=== PATIENT | female | born 1935 | race Caucasian/White ===

== ENCOUNTER 2016-09-11 14:01 | Inpatient (IN) | payer MEDICARE, OTHER ==
[~2016-09-11] VITALS: Ht 152.4 cm; Wt 68.0 kg
--- NOTE | 2016-09-11 14:00 | NUR ---
RECIEVED FROM ACUTE CARE/.ORIENTED TO ROOM AND SURROUNDINGS.CL IN REACH
[~2016-09-11 14:01] MED LIST: ACETAMINOPHEN500 M1 PO; ADVAIR 250/501 DISK INH; AMBIEN10 MG PO; AMBIEN5 MG PO; BAYER CHEWABLE81 MG PO; BROVANA15 MCG/2 M INH; CATAPRES0.1 MG PO; COLACE100 MG PO; COMBIVENT RESPIM4 GM INH; COUMADIN3 MG PO; CRESTOR20 MG PO; IMDUR60 MG; IPRAT-ALBUT 0.5-3 ML UPD; ISOSORBIDE MONO60 M1 PO; KENALOG 0.1 % 115 GM TP; KLONOPIN1 MG PO; LIPITOR10 MG PO; LOPRESSOR25 MG PO; MAXIPIME 2 GM/D52 G1 IV; METOPROLOL TART25 MG PO; MIRALAX17 GM PO; MOBIC7.5 MG PO; NEURONTIN 300300 MG PO; NITROSTAT0.4 MG SL; PRILOSEC20 MG PO; PROZAC40 MG PO; SINGULAIR10 MG PO; VIBRAMYCIN 100100 MG PO
[2016-09-11 14:51] VITALS: BP 157/84; BMI 29.3
--- NOTE | 2016-09-11 17:00 | NUR ---
RESTING QUIETLY.SUPPER TRAY GIVEN.
--- NOTE | 2016-09-11 19:35 | NUR ---
PT CONVERSIVE, SHORTNESS OF BREATH WITH ACTIVITY. AMBULATED TO BATHROOM WITH MIN ASSIST, PT NEEDS ASSISTANCE WITH BALANCE, PT HAS SHORT GAIT PATTERN.
--- NOTE | 2016-09-11 21:00 | NUR ---
PT CONVERSIVE, SPEAKS ABOUT DISCHARGE PLANS AND NEED TO GET STRONGER, SPOUSE TWO MONTHS AGO. PT HAS FREQUENT, TIGHT COUGH, OCCASIONAL PRODUCTIVE WITH WHITE SPUTUM.
[2016-09-11 21:08] VITALS: BP 167/91
[2016-09-12 05:45] LABS: BASOPHILS 0.1 % (0.0-2.0); EOSINOPHILS 0.2 % (0-7); HEMATOCRIT 33.3 % (36.0-48.0); HEMOGLOBIN 10.9 g/dL (12-16); IMMATURE GRANULOCYTES 0.7 % (0-5); LYMPHOCYTES 8.5 % (15-50); MCH 30.3 pg (26.0-34.0); MCHC 32.7 g/dL (31.0-37.0); MCV 92.5 fL (80.0-100.0); MEAN PLATELET VOLUME 10.2 fL (7.4-10.4); MONOCYTES 14.3 % (2-11); NEUTROPHILS 76.2 % (40-80); PLATELET COUNT 202 10x3/uL (130-400); RDW 13.2 % (11.5-14.5); WBC 13.4 10x3/uL (4.8-10.8)
[2016-09-12 06:23] LABS: ANION GAP 14.2 mmol/L (8-16); CALCIUM 8.5 mg/dL (8.5-10.1); CARBON DIOXIDE 24.3 mmol/L (21.0-32.0); CREATININE - SERUM 0.8 mg/dL (0.6-1.3); POTASSIUM - SERUM 3.5 mmol/L (3.5-5.1)
--- NOTE | 2016-09-12 08:15 | NUR ---
PT RESTING IN BED WITH EYES OPEN CALL LIGHT IN REACH WILL MONITER
[2016-09-12 08:38] VITALS: BP 124/73
[2016-09-12 13:03] VITALS: Ht 152.4 cm; Wt 68.0 kg
--- NOTE | 2016-09-12 14:58 | NUR ---
PT UP IN WHEELCHAIR NO PROBLEMS WILL MONITER
--- NOTE | 2016-09-12 17:43 | NUR ---
PT RESTING IN BED WITH EYES OPEN CALL LIGHT IN REACH NO PROBLEMS WILL MONITER
[2016-09-12 19:00] VITALS: BP 153/52
--- NOTE | 2016-09-12 19:30 | NUR ---
PT AWAKE, WATCHING TV, DENIES ANY NEEDS, STATES SHE GETS RELIEF FROM BREATHING TX. PT STATES SHE BELIEVES SHE IS READY TO GO HOME IF SHE COULD GET THE COUGH UNDER CONTROL. REVIEWED IV ANTIBIOTIC SCHEDULE WITH PATIENT. PT REQUESTS THE MARYAON PEALES WITH HER HS MEDICATIONS.
--- NOTE | 2016-09-13 02:10 | NUR ---
PT RESTING QUIETLY, EYES CLOSED, NO SHEETS OR BLANKET ON, NO COUGHING AT THIS TIME, RESPIRATIONS REGULAR.
[2016-09-13 06:53] LABS: BASOPHILS 0.2 % (0.0-2.0); EOSINOPHILS 4.2 % (0-7); HEMATOCRIT 32.2 % (36.0-48.0); HEMOGLOBIN 10.6 g/dL (12-16); IMMATURE GRANULOCYTES 1.8 % (0-5); LYMPHOCYTES 13.4 % (15-50); MCH 30.1 pg (26.0-34.0); MCHC 32.9 g/dL (31.0-37.0); MCV 91.5 fL (80.0-100.0); MEAN PLATELET VOLUME 9.6 fL (7.4-10.4); MONOCYTES 9.9 % (2-11); NEUTROPHILS 70.5 % (40-80); PLATELET COUNT 192 10x3/uL (130-400); RBC 3.52 10x6/uL (4.00-5.40); RDW 13.4 % (11.5-14.5); WBC 11.4 10x3/uL (4.8-10.8)
[2016-09-13 07:13] LABS: ANION GAP 9.2 mmol/L (8-16); CALCIUM 8.5 mg/dL (8.5-10.1); CARBON DIOXIDE 29.5 mmol/L (21.0-32.0); CREATININE - SERUM 0.8 mg/dL (0.6-1.3); POTASSIUM - SERUM 3.7 mmol/L (3.5-5.1)
--- NOTE | 2016-09-13 08:00 | NUR ---
SITTING ON SIDE OF BED EATING BREAKFAST. SOB WITH MINIMAL EXERTION. C/O ABD PAIN FROM COUGHING SO HARD
[2016-09-13 08:15] VITALS: BP 113/75
--- NOTE | 2016-09-13 12:24 | NUR ---
SITTING IN CHAIR EATING LUNCH. ENCOURAGED PT TO USE PILLOW TO COUSHIN ABD WHEN COUGHING.
--- NOTE | 2016-09-13 16:34 | RHP ---
PATIENT: ORALIA SWEENEY MEDICAL RECORD: [id number] ACCOUNT: [id number] LOCATION:[facility]1117 : 34 ADMISSION DATE: 09/11/16 REHABILITATION HISTORY AND PHYSICAL EXAMINATION POST ADMISSION PHYSICIAN EXAMINATION Post-admission Physical Exam and History and Physical DATE OF ADMISSION: 09/11/2016 HISTORY OF PRESENT ILLNESS: The patient is an 81-year-old female admitted with a diagnosis of acute exacerbation of COPD, asthma and right upper lobe community-acquired pneumonia. The patient is an ____ female patient admitted on 09/08/2016 from the physician's office. The patient came to the office with illness dating back to after having a fall and found to have a left 8th rib fracture and has had several falls since that time. With antibiotics of Levaquin last month, the patient now comes in with increasing shortness of breath, wheezing, dyspnea on activity, no paroxysmal nocturnal dyspnea, no orthopnea, not able to go with any activity, seems to worsen with weather changes, cough with sputum production of greyish to yellow in color, fever was up to 101, chills, and night sweats. Chest x-ray showed a focal infiltrate now in the right upper mid lung field, cardiac enlargement, and some mild central vascular prominence, so she is admitted for IV antibiotics, steroids, O2 titration, nebulizer and pulmonary consult. Prior to admit, she was living with an adult son and was independent with ADLs and mobility. Currently, she is moderate to max assist for ADLs and mobility, will definitely benefit from inpatient care. COMORBIDITIES: Include chronic bronchitis, acute dyspnea, fever, chills, chest pain, rib fracture, recent falls, recurrent pneumonia, coronary artery disease, angina, history of NH, hypertension, hyperlipidemia, weakness, debility, anxiety, depression, neuropathy, urinary incontinence and history PTCA with stents. PAST MEDICAL HISTORY: Significant for known coronary artery disease, angina, hypertension, hyperlipidemia, weakness, debility, frequent falls, fever, chest pain and pneumonia. PAST SURGICAL HISTORY: Includes gallbladder surgery, appendectomy, tonsillectomy and adenoidectomy, hysterectomy, breast surgery, lumpectomy. She has had lymph nodes removed, cataracts bilaterally, shoulder rotator cuff done, tubal and FREE LANCE MODEL with stents. CURRENT ALLERGIES: ADHESIVE TAPE AND LASIX. CURRENT MEDICATIONS: Include [place] 5/325 one tab q.12 hours p.r.n., Protonix 40 mg b.i.d., Mobic 15 mg daily, Neurontin 300 mg daily, Prozac 40 mg daily, Lipitor 10 mg daily, sublingual nitroglycerin p.r.n. chest pain, Singulair 10 mg at bedtime, metoprolol 25 mg b.i.d., isosorbide 60 mg b.i.d., DuoNeb updrafts as needed, doxycycline 100 mg b.i.d., clonazepam 2 mg q.h.s., Maxipime 2 grams q.12 hours, Brovana 15 mcg b.i.d. and acetaminophen 500 mg q.6 hours p.r.n. pain. HABITS: No alcohol or tobacco use. FAMILY HISTORY: Noncontributory. HISTORY AND PHYSICAL [id number] PATELORALIA Tani SOCIAL HISTORY: The patient hopes to return home hopefully with family and a caregiver. She is , lives out on [facility]. REVIEW OF SYSTEMS: GENERAL: Does complain of weakness and fatigue. HEENT: Denies cold, cough, or congestion. CARDIOVASCULAR: Denies chest pain. PHYSICAL EXAMINATION: VITAL SIGNS: Stable, afebrile. GENERAL: Elderly female in no acute distress, alert upon exam. HEENT: Normocephalic and atraumatic. Mucosa moist. NECK: Supple. No lymphadenopathy. LUNGS: Clear in upper ortiz. She does have coarse breath sounds on the right. CARDIOVASCULAR: Regular rate and rhythm. ABDOMEN: Benign. EXTREMITIES: No clubbing, cyanosis or edema. NEUROLOGIC: Intact. LABORATORY DATA: Her white count is 13.4, H&H of 11 and 33 and platelet count was noted to be normal. Her sodium is 139, potassium 3.5, BUN and creatinine of 23 and 0.8, blood sugar is noted to be 97. ASSESSMENT: This is an 81-year-old female patient admitted to rehab with a working diagnosis of acute exacerbation of chronic obstructive pulmonary disease complicated by multiple medical problems. The patient has potential to make improvement. We instituted the following multidisciplinary therapies including, but not limited to physical, occupational, respiratory, speech, nutritional services, prosthetics and orthotics. Given her complex condition and risk for more complications, rehabilitation services cannot be provided at a lower level of care such as a [facility] facility. PLAN: 1. Admit to [facility] rehab for intensive inpatient therapy to include the following disciplines: A. Physical therapy to improve gait, all transfer skills and bed mobility to a modified independent level. B. Occupational therapy to improve activities of daily living to a modified independent level. C. Case management to assist with discharge planning and placement options. D. Nutrition to assist with nutritional needs. E. Rehabilitation nursing to assist in monitoring the patient's underlying medical conditions and to assist with any type of bowel or bladder management. 2. The patient's current medications and medical care will be continued. 3. The patient will be placed on standard fall precautions. 4. The patient is estimated length stay is approximately 7-10 days. 5. Discuss this patient during care team staff meeting this week. TRANSINT:[id number] Voice Confirmation ID: [id number] DOCUMENT ID: [id number] HISTORY AND PHYSICAL [id number] ORALIA SWEENEY SCOTT MD at 1634 CC: [id number] DICTATION DATE: 09/12/16 1510 ORTHOTIST: 09/12/16 1715 ADM IN [facility] [address] [place] [address]
--- NOTE | 2016-09-13 17:19 | NUR ---
CARE TEAM MEETING: SLOAN DISHCARGE DATE IS 09/22/16. PCP IS DR. ALY, SHE HAS WALKER, NEBULIZER AND CANE. SHE USES [facility] FOR HER DME NEEDS. WILL CONTINUE TO FOLLOW WITH PATIENT UNTIL DISCHARGED
--- NOTE | 2016-09-13 18:43 | NUR ---
SITTING ON SIDE OF BED USING CELL PHONE. IV ABX INFUSING ORDERED VIA LEFT FA
[2016-09-13 19:00] VITALS: BP 146/65
--- NOTE | 2016-09-13 19:50 | NUR ---
PT. IN BED WITH HOB UP FOR COMFORT AND I.V. ANTIBIOTIC COMPLETED. PT. WANTING TO GET CLEANED UP AND SCRUBS CHANGED. SPRAY PAINTER HELPER WILL ASSIST PT. WITH THIS TONIGHT. PT. DENIES ANY OTHER NEEDS AND CALL LIGHT IS WITHIN REACH.
--- NOTE | 2016-09-14 02:20 | NUR ---
PT. IN BED WITH HOB UP FOR COMFORT WITH EYES CLOSED AND RESP. EVEN. CALL LIGHT WITHIN REACH AND SIDERAILS UP FOR SAFETY.
--- NOTE | 2016-09-14 07:33 | NUR ---
RESTING QUIETLY IN BED. NO S/S OF SOB.
--- NOTE | 2016-09-14 12:12 | NUR ---
SITTING ON SIDE OF BED EATING LUNCH. DENIES NEEDS. HAS BEEN UP WORKING WITH THERAPY TODAY
[2016-09-14 13:01] VITALS: BP 122/59
--- NOTE | 2016-09-14 20:00 | NUR ---
PT. IN BED WITH HOB UP FOR COMFORT. ASSESSMENT COMPLETED. PT. REQUESTING ANYTHING TO HELP WITH HER CONSTIPATION. PT. STATED SHE HAD A SMALL BM TODAY BUT FEELS CONSTIPATED. PT. STILL HAS SORE THROAT AND IS USING WARM SALT WATER BUT REPORTS IT HASN'T HELPED. ENCOURAGED PT. TO CONTINUE TO USE WARM SALT WATER GARGLE AND WILL ADMINISTER TYLENOL THIS EVENING ALSO. CALL LIGHT WITHIN REACH.
[2016-09-14 22:45] VITALS: BP 134/77
[2016-09-14 22:59] VITALS: BP 137/56
[2016-09-14 23:00] VITALS: BP 134/77
--- NOTE | 2016-09-15 02:04 | NUR ---
PT. LYING IN BED WITH HOB UP FOR COMFORT WITH EYES CLOSED AND RESP. EVEN. CALL LIGHT WITHIN REACH.
--- NOTE | 2016-09-15 03:17 | NUR ---
PT CALLED C/O MILD PAIN TO ABD WHEN COUGHING. PT REQ AND REC'D PRN TYELENOL PER ORDERS. INFORMED NURSE. PT DENIES FURTHUR NEEDS AT THIS TIME
--- NOTE | 2016-09-15 08:00 | NUR ---
SITTING UP ON SIDE OF BED EATING BREAKFAST. DENIES INCREASED SOB. NOT WEARING OXYGEN. C/O MOUTH SORENESS. NO EVIDENCE OF WHITE PATCHES OR SORES NOTED TO MOUTH OR TONGUE.
--- NOTE | 2016-09-15 12:08 | NUR ---
EATING LUNCH. DENIES INCREASED PAIN TO CHEST FROM COUGHING.
[2016-09-15 12:17] VITALS: BP 153/87
--- NOTE | 2016-09-15 19:45 | NUR ---
PT. IN BED WITH HOB UP FOR COMFORT WATCHING TV. ASSESSMENT COMPLETED. PT. REQUESTED HER NEW MOUTH WASH FOR HER MOUTH SHE HASN'T RECEIVED ANY OF IT YET. INSTRUCTED PT. ON THE DIFFERENCE BETWEEN REGULAR SCHEDULED MEDICATIONS AND " NEEDED"/"PRN" MEDICATIONS. CALL LIGHT WITHIN REACH.
[2016-09-15 20:15] VITALS: BP 136/68
--- NOTE | 2016-09-16 01:48 | NUR ---
PT. IN BED WITH HOB UP FOR COMFORT WITH EYES CLOSED AND RESP. EVEN. YOU CAN HEAR PT. COUGHING ALL THE WAY UP THE [place] AT TIMES EVEN AFTER GIVING HER HER TESSELON JONES FOR HER COUGH. CALL LIGHT WITHIN REACH.
--- NOTE | 2016-09-16 02:44 | NUR ---
PT. IN BED LYING ON HIS RIGHT SIDE WITH EYES CLOSED AND RESP. EVEN. CALL LIGHT WITHIN REACH.
[2016-09-16 07:00] VITALS: BP 126/52
--- NOTE | 2016-09-16 08:00 | NUR ---
PATIENT SITTING UP IN BED. ALERT/ORIENT X4. CALL LIGHT WITHIN REACH. VOICES NO NEEDS AT THIS TIME
--- NOTE | 2016-09-16 09:45 | NUR ---
PATIENT REQUESTED PRN ONCOLOGY MOUTHWASH AND PRN TESSALON PEARLS. BOTH GIVEN. PATIENT WORKING WITH PYSICAL THERAPIST DOWN IN REHAB ROOM
--- NOTE | 2016-09-16 10:30 | NUR ---
IN THERAPY.NO DISTRESS.RENATO WELL.
--- NOTE | 2016-09-16 11:00 | NUR ---
THIS NURSE TALKED WITH PHYSICAL THERAPIST ABOUT PATIENT BEING ABLE TO WALK AROUND IN ROOM BY SELF. PHYSICAL TERAPIST FELT THAT PATIETS GAIT IS STEADY AND PATIENT IS SAFE ENOUGHT TO WALK AROUND ROOM BY SELF. RELEASE OF RESPONSIBILITY FOR BED/CHAIR ALARM SIGNED BY PATIENT
--- NOTE | 2016-09-16 12:32 | NUR ---
PATIENTS LUNGS SOUND CLEAR BILATERAL. DIMINISHED. HX OF COPD. PULSE OX 96 ON ROOM AIR.
--- NOTE | 2016-09-16 14:01 | NUR ---
NURSE ASST HELPING PATIENT WITH SHOWER. SET UP NEEDS ONLY
--- NOTE | 2016-09-16 17:30 | NUR ---
PATIENT SITTING UP IN A CHAIR AT BEDSIDE TO EAT SUPPER. REQUESTED PRN ONCOLOGY MOUTHWASH BEFORE SUPPER. GIVEN
[2016-09-16 19:35] VITALS: BP 154/84
--- NOTE | 2016-09-16 21:10 | NUR ---
PT REQ AND REC'D PRN KLONOPIN, NORCO, MOUTHWASH AND TESSALON WITH HS MEDS PER ORDERS AT THIS TIME. PT DENIED FURTHUR NEEDS. WCMT. BED LOW. CL IN REACH.
--- NOTE | 2016-09-17 01:17 | NUR ---
PT RESTING, EYES CLOSED. BED LOW. CL IN REACH.
--- NOTE | 2016-09-17 06:27 | NUR ---
PT TOOK AM MEDS WITHOUT DIFFICULTY. PT DENIES FURTHUR NEEDS AT THIS TIME. BED LOW. CL IN REACH.
[2016-09-17 07:00] VITALS: BP 145/85
--- NOTE | 2016-09-17 07:59 | NUR ---
PATIENT AWAKE, ALERT/ORIENT X4. VOICES NO NEEDS THIS AM. CALL LIGHT WITHIN REACH
--- NOTE | 2016-09-17 08:00 | NUR ---
PATIENT AWAKE, ALERT/ORIENT X4. CALL LIGHT WITHIN REACH. VOICES NO NEEDS
--- NOTE | 2016-09-17 10:06 | NUR ---
PATIENT UP, WALKING TO BATHROOM WITH WHEELED WALKER. STEADY GAIT. PATIENT HAS SIGNED A BED/CHAIR ALARM WAVIOR.
--- NOTE | 2016-09-17 12:49 | NUR ---
PRN ISOPTO TEARS AND PRN ONCOLOGY MOUTH WASH GIVEN PER PATIENT REQUEST
--- NOTE | 2016-09-17 16:58 | NUR ---
PRN ONCOLOGY MOUTHWASH AND PRN ISOPTO EYE DROPS GIVEN PER PATIENT REQUEST.
--- NOTE | 2016-09-17 18:00 | NUR ---
SITTING ON SIDE OF BED,CONVERSING WITH OTHER PT.CL IN REACH.
--- NOTE | 2016-09-17 19:30 | NUR ---
PT RECEIVING RESP TREATMENT AT THIS TIME. VS TAKEN. PT DENIES NEEDS. WCTM. BED LOW. CL IN REACH.
[2016-09-17 19:35] VITALS: BP 151/76
--- NOTE | 2016-09-18 00:16 | NUR ---
PT RESTING, EYES CLOSED. BED LOW. CL IN REACH. WCTM.
--- NOTE | 2016-09-18 03:50 | NUR ---
PT RESTING, EYES CLOSED. RR ARE EVEN AND UNLABORED. NO SIGNS OF DISTRESS NOTED. WCTM. BED LOW. CL IN REACH.
--- NOTE | 2016-09-18 05:42 | NUR ---
PT TOOK AM MEDS WITHOUT DIFFICULTY. PT DENIES NEEDS AT THIS TIME. BED LOW. CL IN [facility].
[2016-09-18 06:39] LABS: BASOPHILS 0.6 % (0.0-2.0); EOSINOPHILS 5.9 % (0-7); HEMATOCRIT 34.5 % (36.0-48.0); HEMOGLOBIN 10.9 g/dL (12-16); IMMATURE GRANULOCYTES 2.1 % (0-5); LYMPHOCYTES 21.7 % (15-50); MCH 29.8 pg (26.0-34.0); MCHC 31.6 g/dL (31.0-37.0); MCV 94.3 fL (80.0-100.0); MEAN PLATELET VOLUME 9.4 fL (7.4-10.4); MONOCYTES 10.5 % (2-11); NEUTROPHILS 59.2 % (40-80); PLATELET COUNT 220 10x3/uL (130-400); RBC 3.66 10x6/uL (4.00-5.40); RDW 13.2 % (11.5-14.5); WBC 7.8 10x3/uL (4.8-10.8)
[2016-09-18 06:49] LABS: CALCIUM 9.1 mg/dL (8.5-10.1); CARBON DIOXIDE 29.4 mmol/L (21.0-32.0); CREATININE - SERUM 0.8 mg/dL (0.6-1.3); POTASSIUM - SERUM 4.4 mmol/L (3.5-5.1)
--- NOTE | 2016-09-18 08:01 | NUR ---
introduced self to pt, breakfast served, assisted pt to restroom and back to bed, will continue to monitor, call light within reach.
[2016-09-18 08:46] VITALS: BP 141/77
--- NOTE | 2016-09-18 09:40 | NUR ---
MEDICATION GIVEN, PT TOLETATED WELL, NO NEW NEEDS NOTED AT THIS TIME, WILL CONTINUE TO MONITOR, CALL LIGHT WITHIN REACH.
--- NOTE | 2016-09-18 11:07 | NUR ---
PT RESTING IN BED, RESPIRATIONS EVEN, BED IN LOW POSITION, SIDE RAILS UP X'S 2, CALL LIGHT WITHIN REACH, WILL CONTINUE TO MONITOR.
--- NOTE | 2016-09-18 12:45 | NUR ---
PT EATING LUNCH AT BEDSIDE VISITING WITH 1117B, NO NEEDS NOTED AT THIS TIME, WILL CONTINUE TO MONITOR, CALL LIGHT WITHIN REACH.
--- NOTE | 2016-09-18 14:26 | NUR ---
PT SITTING ON SIDE OF BED TALKING ON PHONE, WATCHING TV, PT STATES NO NEW NEEDS AT THIS TIME, WILL CONTINUE TO MONITOR, CALL LIGHT WITHIN REACH.
--- NOTE | 2016-09-18 15:47 | NUR ---
PT RESTING IN BED, RESPIRATIONS EVEN, BED IN LOW POSITION, SIDE RAILS UP X'W 2, CALL LIGHT WITHIN REACH.
--- NOTE | 2016-09-18 17:32 | NUR ---
PT SITTING AT BEDSIDE EATING DINNER, PT STATES NO NEEDS AT THIS TIME, WILL CONTINUE TO MONITOR, CALL LIGHT WITHIN REACH.
[2016-09-18 20:23] VITALS: BP 130/77
--- NOTE | 2016-09-18 20:32 | NUR ---
RESTING IN BED. ALERT ORIENTED CONVERSANT. DENIES NEEDS. NO ACUTE DISTRESS NOTED
--- NOTE | 2016-09-19 02:39 | NUR ---
PT RESTING, EYES CLOSED. BED LOW. CL IN REACH.
--- NOTE | 2016-09-19 05:37 | NUR ---
RESTING IN BED EYES CLOSED. AROUSES TO VOICE. ALERT ORIENTED CONVERSANT. DENIES NEEDS. NO ACUTE DISTRESS NOTED
[2016-09-19 08:37] VITALS: BP 121/71
[2016-09-19] MEDS ORDERED: ONCOLOGY MOUTHWA5 ML PO (11:07)
--- NOTE | 2016-09-19 13:06 | NUR ---
PATIENT DISCHARGING HOME WITH FAMILY TODAY. [facility] WILL PROVIDE NURSING, PT, OT. NO NEW DME NEEDED AT THIS TIME. PATIENT HAS WALKER, CANE AND NEBULIZER. APPOINTMENT WITH DR. ALY IS PENDING DUE TO OFFICE BEING CLOSED . PATIENT CHOICE FOR HOME HEALTH AND FM FORM SIGNED AND FILED IN CHART. ORDERS HAVE BEEN FAXED WITH CONFORMATION RECIEVED, LEFT MESSAGE WITH DR. ALY OFFICE TO CALL PATIENT WITH AN APPOINTMENT AND STRESSED TO PATIENT TO CALL OFFICE
--- NOTE | 2016-09-19 13:56 | NUR ---
Pt has had a good day. She is discharging to home via son and personal car. She was given her discharge paperwork and her discharge medications were phoned into [facility]. She left with her personal belongings. She was wheeled out to the awaiting car in a wheelchair. Stable condition upon leaving the unit.
== END 2016-09-19 13:57 | disposition home health service (06) | DRG 190 ==
LOC: D.REHAB 14:01
PROVIDERS: ADMIT Emergency Medicine
DX: J44.1 Chronic obstructive pulmonary disease with (acute) exacerbation (principal); J18.8 Other pneumonia, unspecified organism; R06.00 Dyspnea, unspecified; R50.9 Fever, unspecified; R07.9 Chest pain, unspecified; I25.119 Atherosclerotic heart disease of native coronary artery with unspecified angina pectoris; I10 Essential (primary) hypertension; E78.5 Hyperlipidemia, unspecified; R53.1 Weakness; R53.81 Other malaise; F41.8 Other specified anxiety disorders; G62.9 Polyneuropathy, unspecified; R32 Unspecified urinary incontinence; Z95.5 Presence of coronary angioplasty implant and graft

== ENCOUNTER → 2017-02-21 13:10 | Outpatient (CLI) | payer MEDICARE, OTHER ==
[2016-09-12 13:03] VITALS: BMI 29.2
[~2017-02-21 13:10] MED LIST changes: +ONCOLOGY MOUTHWA5 ML PO
== END | disposition home or self-care (01) ==
LOC: D.RT 12-25 10:00 → D.RAD 12-25 11:00 → D.RT 01-04 14:00 → D.RAD 01-04 15:00 → D.RT 01-17 08:00 → D.RAD 01-17 09:00 → D.RT 13:00
DX: J44.9 Chronic obstructive pulmonary disease, unspecified (principal)

== ENCOUNTER 2017-03-17 20:20 | Emergency (ER) | payer MEDICARE, OTHER ==
[2016-09-12 13:03] VITALS: BMI 29.2
== END 2017-03-17 22:39 | disposition home or self-care (01) ==
LOC: D.ER 20:20
DX: S61.452A Open bite of left hand, initial encounter (principal); W54.0XXA Bitten by dog, initial encounter; Y93.89 Activity, other specified; Y92.89 Other specified places as the place of occurrence of the external cause

== ENCOUNTER 2017-04-22 14:30 | Emergency (ER) | payer MEDICARE, OTHER ==
[2016-09-12 13:03] VITALS: BMI 29.2
== END 2017-04-22 16:10 | disposition home or self-care (01) ==
LOC: D.ER 14:30
DX: M54.2 Cervicalgia (principal)

== ENCOUNTER 2017-06-20 03:24 | Emergency (ER) | payer MEDICARE, OTHER ==
[2016-09-12 13:03] VITALS: BMI 29.2
[2017-06-20 04:10] LABS: BASOPHILS 0.5 % (0-2); EOSINOPHILS 6.2 % (0-7); HEMATOCRIT 39.2 % (36.0-48.0); IMMATURE GRANULOCYTES 0.2 % (0-5); LYMPHOCYTES 26.9 % (15-50); MCH 31.4 pg (26.0-34.0); MCHC 33.2 g/dL (31.0-37.0); MCV 94.7 fL (80.0-100.0); MEAN PLATELET VOLUME 9.8 fL (7.4-10.4); MONOCYTES 8.5 % (2-11); NEUTROPHILS 57.7 % (40-80); PLATELET COUNT 199 10x3/uL (130-400); RBC 4.14 10x6/uL (4.00-5.40); RDW 12.6 % (11.5-14.5); WBC 9.2 10x3/uL (4.8-10.8)
[2017-06-20 04:26] LABS: ALBUMIN 3.2 g/dL (3.4-5.0); ALKALINE PHOSPHATASE 96 U/L (46-116); ALT (SGPT) 21 U/L (10-68); BILIRUBIN - TOTAL 0.39 mg/dL (0.2-1.3); CALC OSMOLALITY 276 mosm/kg (275-300); CALCIUM 8.8 mg/dL (8.5-10.1); CARBON DIOXIDE 26.8 mmol/L (21.0-32.0); CHLORIDE - SERUM 103 mmol/L (98-107); CREATININE - SERUM 0.7 mg/dL (0.6-1.3); GLUCOSE 108 mg/dL (74-106); PROTEIN - SERUM 6.3 g/dL (6.4-8.2); SODIUM 137 mmol/L (136-145); UREA NITROGEN 19 mg/dL (7-18); eGFR NON AFRICAN AMERICAN 85 mL/min (90-120)
[2017-06-20 04:32] LABS: APPEARANCE HAZY (CLEAR); BILIRUBIN NEGATIVE (NEGATIVE); COLOR YELLOW (YELLOW); GLUCOSE NEGATIVE (NEGATIVE); KETONE NEGATIVE (NEGATIVE); NITRITE POSITIVE (NEGATIVE); PROTEIN NEGATIVE (NEGATIVE); SPECIFIC GRAVITY 1.015 (1.005-1.020); UROBILINOGEN NORMAL (NORMAL)
[2017-06-20 04:36] LABS: BACTERIA MANY /hpf (NONE SEEN); EPITHELIAL CELLS 0-5 /hpf (0-5); RED CELLS - URINE NONE SEEN /hpf (0-5)
[2017-06-20 04:40] LABS: CREATINE KINASE 110 UL (21-215); PRO BNP 215 pg/mL (0-450)
[2017-06-20 04:42] LABS: TROPONIN-I < 0.017 ng/mL (0.000-0.060)
== END 2017-06-20 06:33 | disposition home or self-care (01) ==
LOC: D.ER 03:24
PROVIDERS: Family Medicine
DX: N39.0 Urinary tract infection, site not specified (principal); R00.1 Bradycardia, unspecified

== ENCOUNTER → 2017-11-27 19:24 | Outpatient (CLI) | payer MEDICARE, OTHER ==
[2016-09-12 13:03] VITALS: BMI 29.2
[~2017-11-27 19:24] MED LIST changes: +PLAVIX75 MG PO
== END | disposition home or self-care (01) ==
LOC: D.MAMMO 13:30
DX: Z12.31 Encounter for screening mammogram for malignant neoplasm of breast (principal)

== ENCOUNTER 2018-01-25 10:04 | Inpatient (IN) | payer MEDICARE, OTHER ==
[~2018-01-25] VITALS: Ht 152.4 cm; Wt 68.0 kg
--- NOTE | ~2018-01-25 | OP ---
PATIENT NAME: ORALIA SWEENEY MEDICAL RECORD: [id number] :33 LOCATION:D.M2 D.2139 ADMISSION DATE:01/25/18 SURGEON: KEYLA HAMPTON MD DATE OF OPERATION: 01/28/2018 PROCEDURES: 1. Left heart catheterization. 2. Selective coronary angiography. 3. Left ventriculogram. 4. Attempted but failed PTCA stent left circumflex due to inability to cross the lesion with wire. PROCEDURE IN DETAIL: After informed consent was obtained and after a detailed explanation of the risks, benefits as well as alternative therapies, the patient elected to proceed with angiogram and heart catheterization. The right femoral area is prepped and draped in normal sterile fashion. Right femoral artery was cannulated via modified Seldinger technique with placement of 6-Slovak sheath. All catheters exchanged through this sheath. FINDINGS: The left ventriculogram performed in standard 30-degree JACOB view reveals good cardiac wall motion and ejection fraction of 55% to 60%. SELECTIVE CORONARY ANGIOGRAPHY: 1. Left main is with no significant angiographic disease. 2. Left anterior descending has moderate irregularities, but no flow-limiting stenosis. Previously placed stent is widely patent. 3. The right coronary has previously placed stents. These are widely with no significant restenosis. No disease elsewise. 4. 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 There is a total occlusion in the mid vessel, it is a chronic total occlusion throughout. Attempted PTCA stent of the left circumflex: We attempted to cross the total occlusion with a wire. No wire would cross this total occlusion. 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 RCA and LAD with no significant disease. Continue medical management of the coronary artery disease and cardiac risk factors. TRANSINT:[id number] Voice Confirmation ID: [id number] DOCUMENT ID: [id number] KEYLA HAMPTON MD at 1849 CC: [id number] DICTATION DATE: 01/28/18 1629 LEGAL AIDE: 01/28/18 1752 ADM IN [facility] [id number] [place] [address]
--- NOTE | ~2018-01-25 | CN ---
PATIENT NAME:ORALIA SWEENEY MEDICAL RECORD: [id number] : 33 LOCATION:D. D.2139 ADMIT DATE: 01/25/18 ACCOUNT: [id number] CONSULTING PHYSICIAN: KEYLA HAMPTON MD REFERRING PHYSICIAN: CAMDEN ALY DO DATE OF CONSULTATION: 01/25/2018 DIAGNOSES: 1. Shortness of breath. 2. Dyspnea on exertion. 3. Angina. 4. Previous multivessel PTCA stent. 5. Hypertension. 6. Urinary tract infection. HISTORY OF PRESENT ILLNESS: Ms. Sweeney presents with some chest heaviness and extreme shortness of breath. She was found to have some pulmonary edema. There is a question of congestive heart failure. She has always had a normal ejection fraction. Last evaluation was in 2013. She had an ejection fraction 60%. She does have multivessel PTCA stent and 3-vessel coronary artery disease, but she had no hemodynamically significant stenosis at the time of the 2014 catheterization that needed any attention. Over the past month, she has become more and more short of breath. She is having some episodes of chest heaviness. She as well has a recurrent urinary tract infection, for which she is on Levaquin. Her chest x-ray was compatible with pulmonary edema. PHYSICAL EXAMINATION: GENERAL APPEARANCE: Well-nourished, well-developed, appears stated age. Level of distress, comfortable. PSYCHIATRIC: Mental status, alert, normal affect. Orientation, oriented to time, place and person. EYES: Lids and conjunctiva, noninjected. No discharge, no pallor. ENT: Lips, teeth, gums, normal dentition. Oropharynx, no cyanosis, no pallor. NECK: Carotid arteries, bilateral normal upstroke, no bruits, no thrills. JUGULAR VEINS: No jugular venous pressure or distention. CERVICAL LYMPH NODES: Nontender, nonenlarged. THYROID: Not enlarged. Nontender. No nodules. LUNGS: Respiratory effort, unlabored. CHEST: Normal curvature. No thoracic deformity. No chest wall tenderness. Percussion, resonant. Auscultation, clear. No wheezes, no rales, no rhonchi. CARDIOVASCULAR: Precordial exam, nondisplaced. No heaves or pericardial thrills. Rate and rhythm, regular. Heart sounds, normal S1, normal S2. No S3, no gallop, no rub. Systolic murmur, not heard. Diastolic murmur, not heard. EXTREMITIES: No cyanosis, no edema. Peripheral pulses, full and equal in all extremities, except as noted. No bruits appreciated. ABDOMEN: Soft, nondistended. Normal aorta. No bruit. Nontender. No masses. Liver, nontender, no hepatomegaly. Spleen, nontender, no splenomegaly. MUSCULOSKELETAL: No joint tenderness. No joint swelling. No erythema. NEUROLOGICAL: Normal gait, normal strength, normal tone. SKIN: Warm and dry. OVERALL IMPRESSION: Shortness of breath with chest heaviness. Most likely, she does have recurrent hemodynamically significant coronary artery disease. We will get an echocardiogram for her ejection fraction today. Give her Lasix for diuresis. She is on Levaquin for the urinary tract infection. Proceed with CONSULT REPORT [id number] ORALIA SWEENEY coronary angiography in the next few days. Further care depends upon the findings of the echo and coronary angiography. TRANSINT:[id number] Voice Confirmation ID: [id number] DOCUMENT ID: [id number] KEYLA HAMPTON MD at 1848 CC: [id number] DICTATION DATE: 01/25/18 1323 CAMPUS RECRUITER: 01/25/18 1452 ADM IN [facility] [address] [place] [address]
--- NOTE | ~2018-01-25 | HEMODYNAMI ---
PATIENT:ORALIA SWEENEY MEDICAL RECORD: [id number] : 33 LOCATION:[address] ADMISSION DATE: 01/25/18 Generatedon:01/28/201816:29 Patient name: ORALIA SWEENEY Patient #: [id number] SSN: : 1935 Date of study: 01/28/2018 Page: Of Hemodynamic Procedure Report Patient Data Patient Demographics Procedure consent was obtained First Name: ORALIA Gender: Female Last Name: PATEL : 1935 [facility] Initial: L Age: 82 year(s) Patient #: [id number] Race: Unknown Additional ID: [id number] Contact details Address: [address] [place] [address] rd State: [place] City: [facility] Zip code: [address] Past Medical History Allergies Allergen Reaction Date Comments Reported Adhesive tape 01/28/2018 Natural rubber 01/28/2018 and latex Admission Admission Data Admission Date: 01/25/2018 Admission Time: 10:05 Room #: 2139 Procedure Procedure Types Cath Procedure Diagnostic Procedure [facility] w/Coronaries Sedation Charges Moderate Sedation up to 15 minutes Procedure Description Procedure Date Procedure Date: 01/28/2018 Procedure Start Time: 16:06 Procedure End Time: 16:27 Procedure Staff Name Function Arturo Escobar MD Performing Physician Louisa Lyle RT Monitor Nathan Chatman RT Scrub Clementina Barfield RN Nurse Procedure Data Cath Procedure Fluoroscopy Diagnostic fluoroscopy Total fluoroscopy Time: 7.9 time: 7.9 min min Diagnostic fluoroscopy Total fluoroscopy dose: 520 dose: 520 mGy mGy Contrast Material Contrast Material Type Amount (ml) Isovue 370 94 Entry Location Entry Primary Successful Side Size Upsize Upsize Entry Closure Succes sful Closure Location (Fr) 1 (Fr) 2 (Fr) Remarks Device Remarks Femoral Right 5 Fr 6 Fr Exoseal artery Short Estimated blood loss: 10 ml Diagnostic catheters Device Type Used For End Catheter Placement MULTIPACK Pigtail 5 Fr LV Angiography catheter MULTIPACK JL 4.0 5Fr Left Coronary catheter Angiography DIAGNOSTIC AR 2 MOD 5 Fr Right Coronary catheter ([id number]) Angiography Procedure Complications No complications Procedure Medications Medication Administration Route Dosage Oxygen NC 2 l/min Lidocaine 2% added to field 20 Heparin Flush Bag added to field 2 bags (1000units/500ml NS) 0.9% NaCl I.V. 100 ml/hr Heparin Bolus I.V. 4000 units Versed I.V. 1 mg Fentanyl I.V. 50 mcg Versed I.V. 1 mg Fentanyl I.V. 50 mcg Hemodynamics Rest Heart Rate: 73 (bpm) Snapshots Pre Cath Intra NCS Post Cath Vital Signs Time Heart Resp SPO2 etCO2 NIBP (mmHg) Rhythm Pain Sedation Rate (ipm) (%) (mmHg) Status Level (bpm) 15:34:46 73 13 98 32.9 170/88(146) NSR 0 (11) 10(A) , No pain 15:39:37 73 13 97 35.9 166/81(121) NSR 0 (11) 10(A) , No pain 15:44:28 72 16 97 33.7 158/86(137) NSR 0 (11) 10(A) , No pain 15:49:10 65 16 96 35.2 149/84(123) NSR 0 (11) 10(A) , No pain 15:53:57 72 14 96 15.7 154/83(123) NSR 0 (11) 10(A) , No pain 15:58:44 72 18 95 10.4 147/81(124) NSR 0 (11) 10(A) , No pain 16:03:27 71 22 96 28.4 147/85(125) NSR 0 (11) 10(A) , No pain 16:08:11 46 15 95 0 119/60(106) NSR 0 (11) 10(A) , No pain 16:12:52 66 17 94 32.2 123/65(107) NSR 0 (11) 9(A) , No pain 16:17:30 67 18 94 6.7 104/58(85) NSR 0 (11) 9(A) , No pain 16:22:07 69 17 94 14.9 115/70(104) NSR 0 (11) 10(A) , No pain 16:27:35 69 7 94 9.7 118/63(104) NSR 0 (11) 10(A) , No pain Medications Time Medication Route Dose Verified Delivered Reason Notes Effectiveness by by 16:04:26 Oxygen NC 2 Arturo Buffie used for l/min Luz Barfield RN procedure 16:04:33 Lidocaine 2% added 20ml Atruro Arturo for local to vial Luz Escobar MD anesthetic field 16:04:41 Heparin Flush added 2 Arturo Arturo used for Bag to bags Luz Escobar MD procedure (1000units/500ml field NS) 16:05:10 0.9% NaCl I.V. 100 Arturo Buffie Per physician ml/hr Luz Barfield RN 16:07:39 Versed I.V. 1 mg Arturo Buffie for sedation Luz Barfield RN 16:07:44 Fentanyl I.V. 50 Arturo Buffie for sedation mcg Luz Barfield RN 16:13:27 Heparin Bolus I.V. 4000 Arturo Buffie for verifi ed units Luz Barfield RN anticoagulation with dr escobar 16:14:48 Versed I.V. 1 mg Arturo Buffie for sedation Luz Barfield RN 16:14:52 Fentanyl I.V. 50 Arturo Buffie for sedation mcg Luz Barfield RN Procedure Log Time Note 15:03:37 Time tracking: Regular hours (M-F 7:00 - 5:00) 15:03:41 Plan of Care:Hemodynamics will remain stable., Cardiac rhythm will remain stable., Comfort level will be maintained., Respiratory function will remain adequate., Patient/ family verbilizes understanding of procedure., Procedure tolerated without complication., Recovers from procedure without complications.. 15:06:36 Louisa Lyle RT(R) sent for patient. Start room use. 15:32:02 Patient received from PCU to CCL 1 Alert and oriented. Tansferred to table in Supine position. 15:33:38 Warm blankets applied, and mandy hugger turned on for patient comfort. 15:33:39 Correct patient and procedure confirmed by team. 15:33:40 Signed procedure consent form obtained from patient. 15:33:41 ECG and BP/O2 sat monitors applied to patient. 15:33:43 Full Disclosure recording started 15:33:45 Vital chart was started 15:33:47 Rhythm: sinus rhythm 15:34:08 H&P Date Dictated: 01/25/2018 Within 30 days and on chart.. 15:34:09 Pre-procedure instructions explained to patient. 15:34:10 Pre-op teaching completed and patient verbalized understanding. 15:34:14 Family in waiting room. 15:34:20 Patient NPO since Midnight. 15:34:28 Patient allergic to Adhesive tape 15:34:45 Patient allergic to Natural rubber and latex 15:34:51 Is the patient allergic to Iodine/contrast media? No. 15:34:52 Is patient on blood thinner?Yes 15:34:54 ACC The patient was administered the following blood thiners within the last 24 hours: ACCAspirin, ACCPlavix 15:34:56 Patient diabetic? No. 15:34:59 Previous problem with sedation/anesthesia? No ? 15:35:00 Snore? Yes 15:35:03 Sleep apnea? No 15:35:04 Deviated septum? No 15:35:05 Opens mouth fully? Yes 15:35:06 Sticks out tongue? Yes 15:35:11 Airway obstruction? Yes COPD 15:35:17 Dentures? Yes OUT 15:35:21 Pre procedure: right dorsailis pedis pulse 2+ Normal; easily identifiable; not easily obliterated 15:35:26 Patient pain scale 0/10 ?. 15:35:40 IV patent on arrival in Lt subclavian with 0.9% NaCl at KVO. 15:35:43 Lab results completed and on chart. 15:35:47 Right groin area was prepped with chlora-prep and draped in sterile fashion 15:35:49 Alarms reviewed by R. N. 15:35:49 Sharps counted by scrub and verified by R.N. 15:52:04 Baseline sample Acquired. 15:52:08 Use device set Femoral Dx 15:52:09 ACIST Syringe (37448) opened to sterile field. 15:52:10 Bag Decanter (2002) opened to sterile field. 15:52:10 Medline Cath Pack ([id number]) opened to sterile field. 15:52:11 DIAGNOSTIC WIRE .035 260cm J wire (149777) opened to sterile field. 15:52:12 ACIST Hand Control (44204) opened to sterile field. 15:52:12 ACIST Manifold (28102) opened to sterile field. 15:52:13 DIAGNOSTIC Multipack 5Fr catheter set ([id number]) opened to sterile field. 15:52:13 Tegaderm 4 x 4 (1626W) opened to sterile field. 15:52:14 PERCUTANEOUS ENTRY 19GA needle opened to sterile field. 15:52:16 SHEATH Prelude 5Fr 0.035 (JYJ-0B-17-035) opened to sterile field. 15:58:58 Final Timeout: patient, procedure, and site verified with staff and physician. All members of the team are in agreement. 15:59:00 Right groin site verified by team. 15:59:03 Physical assessment completed. ASA score P 2 - A patient with mild systemic disease as per Arturo Escobar MD. 15:59:05 Sedation plan: IV Moderate Sedation Medication:Versed, Fentanyl 16:04:26 Oxygen 2 l/min NC was administered by Clementina Barfield RN; used for procedure; 16:04:33 Lidocaine 2% 20ml vial added to field was administered by Arturo Escobar MD; for local anesthetic; 16:04:41 Heparin Flush Bag (1000units/500ml NS) 2 bags added to field was administered by Arturo Escobar MD; used for procedure; 16:05:04 Procedure started. 16:05:10 0.9% NaCl 100 ml/hr I.V. was administered by Clementina Barfield RN; Per physician; 16:05:47 Zero performed for pressure channel P1 16:06:07 Local anesthetic to right femoral artery with Lidocaine 2% by Arturo Escobar MD.INITIAL ACCESS ONLY 16:06:52 A 5 Fr sheath was inserted into the Right Femoral artery 16:07:05 A MULTIPACK Pigtail 5 Fr catheter was advanced over the wire and used for LV Angiography. 16:07:39 Versed 1 mg I.V. was administered by Clementina Barfield RN; for sedation; 16:07:44 Fentanyl 50 mcg I.V. was administered by Clementina Barfield RN; for sedation; 16:08:17 LV gram done using JACOB 16:08:20 Injector settings: Ml/sec: 10, Volume: 20, 16:08:26 EF : 60 % 16:08:27 Catheter removed. 16:08:32 A MULTIPACK JL 4.0 5Fr catheter was advanced over the wire and used for Left Coronary Angiography. 16:11:59 A DIAGNOSTIC AR 2 MOD 5 Fr catheter ([id number]) was advanced over the wire and used for Right Coronary Angiography. Circumflex takes off from RCA 16:12:09 Catheter removed. 16:12:20 Use device set LUZ PCI 16:12:25 INFLATOR Merit Sourav ([id number]) opened to sterile field. 16:12:33 SHEATH Prelude 6Fr 0.035 (GFW-9A-30-035) opened to sterile field. 16:12:41 FIELDER XT J 300cm guide wire ([id number]) opened to sterile field. 16:12:51 Sheath upsized to a 6 Fr Short. 16:13:27 Heparin Bolus 4000 units I.V. was administered by Clementina Barfield RN; for anticoagulation; verified with dr escobar 16:14:07 6 Fr AR 2.0 SH guide catheter was inserted over the wire 16:14:48 Versed 1 mg I.V. was administered by Clementina Barfield RN; for sedation; 16:14:52 Fentanyl 50 mcg I.V. was administered by Clementina Barfield RN; for sedation; 16:15:29 Fielder wire advanced. 16:22:18 The EMERGE OTW 1.5 x 15 balloon ([id number]) was advanced and then removed because of failure to cross lesion 16:22:22 Balloon removed over the wire. 16:22:27 Wire removed. unable to cross lesion. 16:22:31 Guide catheter removed. 16:22:46 Sheath removed intact; hemostasis achieved with Exoseal to the Right Femoral artery. 16:22:48 Procedure ended.(Physican Out) 16:22:58 Fluoroscopy time 07.90 minutes. 16:23:02 Flurop Dose total: 520 16:23:02 Fluoroscopy dose: 520 mGy 16:23:08 Contrast amount:Isovue 370 94ml. 16:23:09 Sharps counted by scrub and verified by R.N. 16:23:11 Insertion/operative site no bleeding no hematoma. 16:23:13 Post-op/insertion site Right Femoral artery dressed using a 4 x 4 and Tegaderm. 16:23:17 Post right femoral artery:stable, clean and dry 16:23:18 Post Procedure Pulses reassessed and unchanged 16:23:21 Post-procedure physical assessment completed. ASA score P 2 - A patient with mild systemic disease as per Arturo Escobar MD. 16:23:23 Post procedure rhythm: unchanged. 16:23:26 Estimated blood loss: 10 ml 16:23:28 Post procedure instruction explained to patient.Patient verbalizes understanding. 16:23:28 Patient needs reinforcement of post procedure teaching. 16:24:00 Procedure type changed to Cath procedure, Diagnostic procedure, LHC, LHC w/Coronaries, Sedation Charges, Moderate Sedation up to 15 minutes 16:24:11 Procedure Complication : No complications 16:24:13 See physician's report for complete and final results. 16:24:21 EXOSEAL 6Fr (EX600) opened to sterile field. 16:24:51 GUIDE 6FR AR 2.0 SH catheter ([id number]) opened to sterile field. 16:26:07 Procedure and supply charges have been captured, reviewed, submitted and are correct. 16:26:08 Vital chart was stopped 16:26:11 Report given to PCU. 16:26:53 End room use (Document Last) 16:27:42 Patient transfered to PCU with Bed. 16:27:53 Procedure ended. 16:27:53 Full Disclosure recording stopped Intervention Summary Intervention Notes Time ActionType Lesion and Equipment Action# Pressure Duration Attributes Used 16:22:18 Discard EMERGE OTW Balloon 1.5 x 15 balloon ([id number]) Device Usage Item Name Manufacture Quantity Catalog Number Hospital Part Current Minimal Lot# / Charge Number Stock Stock Serial# Code ACIST Syringe Acist 1 09483 251021 862054 611137 20 (39620) [employer] Inc Bag Decanter Microtek 1 508170 78325 184395 5 () Medical Inc. Medline Cath Cardinal 1 [id number] 524078 51666 149187 5 Pack Health ([id number]) DIAGNOSTIC WIRE St Asael 1 103646 584468 056865 534971 30 .035 260cm J wire (989003) ACIST Hand Acist 1 99392 782973 096521 612187 5 Control (11369) Medical Systems Inc ACIST Manifold Acist 1 44414 285014 928283 741933 5 (31941) [employer] Systems Inc DIAGNOSTIC Cardinal 1 [id number] 874990 79948 362835 30 Multipack 5Fr Health catheter set (MJ5517) Tegaderm 4 x 4 3M 1 1626W 604155 678309 704622 5 (1626W) PERCUTANEOUS Cook Medical 1 K32908 525843 841925 5 ENTRY 19GA needle SHEATH Prelude Merit 1 IUF-7W-29-035 033965 710002 753458 5 5Fr 0.035 Medical (DTD-2O-06-035) MULTIPACK Cardinal 1 695596 5 Pigtail 5 Fr Health catheter MULTIPACK JL Cardinal 1 719190 5 4.0 5Fr Health catheter DIAGNOSTIC AR 2 Cardinal 1 [id number] 995577 214913 734890 20 MOD 5 Fr Health catheter ([id number]) INFLATOR Merit Merit 1 XQ7186 998445 377040 129186 15 BasixComChef Dovunque Medical (VL8049) SHEATH Prelude Merit 1 KDX-1K-84-35 187153 5998305 153728 5 6Fr 0.035 Medical (TUD-7Y-91-035) FIELDER XT J Garcia 1 [id number] 369223 011277 066930 5 300cm guide Vascular wire ([id number]) EMERGE OTW 1.5 Bend 1 [id number] 069503 762784 979504 5 [id number] x 15 balloon Scientific ([id number]) EXOSEAL 6Fr Cardinal 1 EX600 576824 192573 944667 10 (EX600) Health GUIDE 6FR AR Medtronic 1 [id number] 715357 90420 987357 1 2.0 SH catheter (LT5TG6PM) Signature Audit [place] Stage Time Signature Unsigned Intra-Procedure 01/28/2018 Louisa 4:29:40 PM Counts RT(R) Signatures Monitor : Louisa Signature : Counts RT Date : Time : [place] [id number] [facility] [place] [address]
--- NOTE | ~2018-01-25 | OP ---
PATIENT NAME: ORALIA SWEENEY MEDICAL RECORD: [id number] :33 LOCATION:[address] ADMISSION DATE:01/25/18 SURGEON: CEE CLEVELAND MD DATE OF OPERATION: 01/27/2018 PREOPERATIVE DIAGNOSES: 1. Need for IV access. 2. Coronary artery disease. 3. CHF. 4. COPD exacerbation. 5. UTI. POSTOPERATIVE DIAGNOSES: 1. Need for IV access. 2. Coronary artery disease. 3. CHF. 4. COPD exacerbation. 5. UTI. PROCEDURE: Left subclavian vein triple lumen central venous line placement. SURGEON: Cee Cleveland MD REPORT OF PROCEDURE: The patient's left chest was prepped and draped in sterile fashion. A total of 5 cc of 1% lidocaine was infused into the subcutaneous tissues. A needle was used to cannulate the left subclavian vein and a guidewire was advanced with ease. Over this wire, dilator was placed followed by the triple lumen catheter. The catheter aspirated nonpulsatile dark blood and flushed easily in all 3 ports. This was sutured into place with 3-0 silk ties and dressed appropriately. COMPLICATIONS: None. CONDITION: Stable. ANESTHESIA: Local. BLOOD LOSS: Minimal. Procedure done at the bedside. TRANSINT:[id number] Voice Confirmation ID: [id number] DOCUMENT ID: [id number] CEE CLEVELAND MD at 1031 CC: [id number] DICTATION DATE: 01/27/18 1530 DATA SUPPORT SPECIALIST: 01/27/18 1613 DIS IN 01/29/18 [facility] [address] [place] [address]
[~2018-01-25 10:04] MED LIST changes: -PLAVIX75 MG PO
[2018-01-25 11:16] VITALS: BP 181/72; BMI 30.5
[2018-01-25 11:51] LABS: BASOPHILS 0.4 % (0-2); EOSINOPHILS 4.2 % (0-7); HEMATOCRIT 37.1 % (36.0-48.0); HEMOGLOBIN 12.3 g/dL (12-16); IMMATURE GRANULOCYTES 0.1 % (0-5); LYMPHOCYTES 23.1 % (15-50); MCH 30.7 pg (26.0-34.0); MCHC 33.2 g/dL (31.0-37.0); MCV 92.5 fL (80.0-100.0); MONOCYTES 9.4 % (2-11); NEUTROPHILS 62.8 % (40-80); PLATELET COUNT 202 10x3/uL (130-400); RBC 4.01 10x6/uL (4.00-5.40); WBC 7.8 10x3/uL (4.8-10.8)
[2018-01-25 12:01] LABS: APPEARANCE CLEAR (CLEAR); BACTERIA MANY /hpf (NONE SEEN); BILIRUBIN NEGATIVE (NEGATIVE); COLOR STRAW (YELLOW); EPITHELIAL CELLS OCC /hpf (0-5); GLUCOSE NEGATIVE (NEGATIVE); KETONE NEGATIVE (NEGATIVE); NITRITE POSITIVE (NEGATIVE); PROTEIN NEGATIVE (NEGATIVE); RED CELLS - URINE RARE /hpf (0-5); UROBILINOGEN NORMAL (NORMAL)
[2018-01-25 12:11] LABS: ALBUMIN 3.4 g/dL (3.4-5.0); ALKALINE PHOSPHATASE 82 U/L (46-116); ALT (SGPT) 22 U/L (10-68); BILIRUBIN - TOTAL 0.69 mg/dL (0.2-1.3); CALC OSMOLALITY 278 mosm/kg (275-300); CALCIUM 8.9 mg/dL (8.5-10.1); CARBON DIOXIDE 27.6 mmol/L (21.0-32.0); CHLORIDE - SERUM 105 mmol/L (98-107); CREATININE - SERUM 0.7 mg/dL (0.6-1.3); GLUCOSE 96 mg/dL (74-106); PROTEIN - SERUM 6.5 g/dL (6.4-8.2); SODIUM 140 mmol/L (136-145); UREA NITROGEN 12 mg/dL (7-18); eGFR NON AFRICAN AMERICAN 85 mL/min (90-120)
[2018-01-25 12:27] LABS: CKMB 0.7 U/L (0.0-3.6); CREATINE KINASE 163 UL (21-215); MAGNESIUM - SERUM 1.8 mg/dL (1.8-2.4); PRO BNP 482 pg/mL (0-450)
[2018-01-25 12:28] LABS: TROPONIN-I < 0.017 ng/mL (0.000-0.060)
[2018-01-25 15:42] VITALS: BP 199/85
[2018-01-25 17:48] LABS: CKMB 1.1 U/L (0.0-3.6); CREATINE KINASE 167 UL (21-215)
[2018-01-25 17:49] LABS: TROPONIN-I < 0.017 ng/mL (0.000-0.060)
[2018-01-25 20:00] VITALS: BP 131/71
[2018-01-25 23:49] LABS: CKMB 0.5 U/L (0.0-3.6); CREATINE KINASE 146 UL (21-215)
[2018-01-25 23:50] LABS: TROPONIN-I < 0.017 ng/mL (0.000-0.060)
[2018-01-26 01:00] VITALS: BP 180/69
[2018-01-26 04:00] VITALS: BP 126/53
[2018-01-26 05:48] LABS: BASOPHILS 0.4 % (0-2); EOSINOPHILS 5.2 % (0-7); HEMOGLOBIN 12.5 g/dL (12-16); IMMATURE GRANULOCYTES 0.3 % (0-5); LYMPHOCYTES 25.4 % (15-50); MCH 30.9 pg (26.0-34.0); MCHC 33.8 g/dL (31.0-37.0); MCV 91.6 fL (80.0-100.0); MEAN PLATELET VOLUME 10.1 fL (7.4-10.4); NEUTROPHILS 55.7 % (40-80); PLATELET COUNT 202 10x3/uL (130-400); RBC 4.04 10x6/uL (4.00-5.40); RDW 13.1 % (11.5-14.5); WBC 6.9 10x3/uL (4.8-10.8)
[2018-01-26 06:08] LABS: ALBUMIN 3.2 g/dL (3.4-5.0); BILIRUBIN - TOTAL 0.74 mg/dL (0.2-1.3); CALCIUM 9.2 mg/dL (8.5-10.1); CARBON DIOXIDE 29.1 mmol/L (21.0-32.0); CREATININE - SERUM 0.8 mg/dL (0.6-1.3); POTASSIUM - SERUM 3.1 mmol/L (3.5-5.1); PROTEIN - SERUM 6.3 g/dL (6.4-8.2)
[2018-01-26 09:47] VITALS: BMI 30.4
[2018-01-26 11:43] VITALS: BP 133/64
[2018-01-26 15:17] VITALS: BP 135/72
[2018-01-26 20:00] VITALS: BP 171/57
[2018-01-27] VITALS: BP 134/64
[2018-01-27 04:00] VITALS: BP 146/68
[2018-01-27 05:12] LABS: BASOPHILS 0.4 % (0-2); EOSINOPHILS 5.3 % (0-7); HEMATOCRIT 38.8 % (36.0-48.0); HEMOGLOBIN 12.9 g/dL (12-16); IMMATURE GRANULOCYTES 0.1 % (0-5); LYMPHOCYTES 22.7 % (15-50); MCH 30.7 pg (26.0-34.0); MCHC 33.2 g/dL (31.0-37.0); MCV 92.4 fL (80.0-100.0); MEAN PLATELET VOLUME 9.9 fL (7.4-10.4); MONOCYTES 10.3 % (2-11); NEUTROPHILS 61.2 % (40-80); PLATELET COUNT 197 10x3/uL (130-400); RDW 13.1 % (11.5-14.5); WBC 7.4 10x3/uL (4.8-10.8)
[2018-01-27 06:26] LABS: BILIRUBIN - TOTAL 0.62 mg/dL (0.2-1.3); CALCIUM 8.8 mg/dL (8.5-10.1); CREATININE - SERUM 0.9 mg/dL (0.6-1.3); MAGNESIUM - SERUM 1.9 mg/dL (1.8-2.4); PHOSPHOROUS 4.2 mg/dL (2.5-4.9); PROTEIN - SERUM 6.2 g/dL (6.4-8.2)
[2018-01-27 06:45] LABS: ANION GAP 16.4 mmol/L (8-16); POTASSIUM - SERUM 5.4 mmol/L (3.5-5.1)
[2018-01-27 08:44] VITALS: BP 142/68
[2018-01-27 11:42] VITALS: BP 134/84
[2018-01-27 15:23] VITALS: BP 121/78
[2018-01-27 15:30] VITALS: Ht 152.4 cm; Wt 68.0 kg
[2018-01-27 20:00] VITALS: BP 156/74
[2018-01-28 04:00] VITALS: BP 112/61
[2018-01-28 05:05] LABS: BASOPHILS 0.3 % (0-2); EOSINOPHILS 4.7 % (0-7); HEMOGLOBIN 12.8 g/dL (12-16); IMMATURE GRANULOCYTES 0.1 % (0-5); LYMPHOCYTES 23.2 % (15-50); MCH 31.3 pg (26.0-34.0); MCHC 33.7 g/dL (31.0-37.0); MCV 92.9 fL (80.0-100.0); MEAN PLATELET VOLUME 10.1 fL (7.4-10.4); MONOCYTES 10.3 % (2-11); NEUTROPHILS 61.4 % (40-80); PLATELET COUNT 213 10x3/uL (130-400); RBC 4.09 10x6/uL (4.00-5.40); RDW 13.3 % (11.5-14.5); WBC 6.8 10x3/uL (4.8-10.8)
[2018-01-28 05:18] LABS: ALBUMIN 3.1 g/dL (3.4-5.0); ANION GAP 12.1 mmol/L (8-16); BILIRUBIN - TOTAL 0.71 mg/dL (0.2-1.3); CALCIUM 8.9 mg/dL (8.5-10.1); CARBON DIOXIDE 28.5 mmol/L (21.0-32.0); CREATININE - SERUM 0.9 mg/dL (0.6-1.3); PROTEIN - SERUM 6.3 g/dL (6.4-8.2)
[2018-01-28 05:19] LABS: POTASSIUM - SERUM 3.6 mmol/L (3.5-5.1)
[2018-01-28 08:19] VITALS: BP 137/70
[2018-01-28 12:00] VITALS: BP 155/78
[2018-01-28 20:50] VITALS: BP 107/51
[2018-01-29 01:02] VITALS: BP 130/72
[2018-01-29 05:30] VITALS: BP 92/62
[2018-01-29 07:43] VITALS: BP 132/68
[2018-01-29] MEDS ORDERED: PLAVIX75 MG PO (11:25)
[2018-01-29 15:50] VITALS: BP 136/77
== END 2018-01-29 19:18 | disposition home health service (06) | DRG 250 ==
LOC: D.SDCHOLD 10:04 → D.M2 10:05
PROVIDERS: Family Medicine
PROC: 02HV33Z Insertion of Infusion Device into Superior Vena Cava, Percutaneous Approach (ICD-10-PCS; 2018-01-27)
PROC: 02703ZZ Dilation of Coronary Artery, One Artery, Percutaneous Approach (ICD-10-PCS; principal; 2018-01-28)
PROC: 4A023N7 Measurement of Cardiac Sampling and Pressure, Left Heart, Percutaneous Approach (ICD-10-PCS; 2018-01-28)
PROC: B2111ZZ Fluoroscopy of Multiple Coronary Arteries using Low Osmolar Contrast (ICD-10-PCS; 2018-01-28)
PROC: B2151ZZ Fluoroscopy of Left Heart using Low Osmolar Contrast (ICD-10-PCS; 2018-01-28)
DX: I25.10 Atherosclerotic heart disease of native coronary artery without angina pectoris (principal); I50.23 Acute on chronic systolic (congestive) heart failure; J44.1 Chronic obstructive pulmonary disease with (acute) exacerbation; N39.0 Urinary tract infection, site not specified; I25.82 Chronic total occlusion of coronary artery; I11.0 Hypertensive heart disease with heart failure; K21.9 Gastro-esophageal reflux disease without esophagitis; E87.6 Hypokalemia; F32.9 Major depressive disorder, single episode, unspecified; F41.9 Anxiety disorder, unspecified; E03.9 Hypothyroidism, unspecified; I08.1 Rheumatic disorders of both mitral and tricuspid valves; J30.9 Allergic rhinitis, unspecified

== ENCOUNTER 2018-03-12 16:33 | Emergency (ER) | payer MEDICARE, OTHER ==
[~2018-03-12 16:33] MED LIST changes: +PLAVIX75 MG PO
[2018-03-12 16:51] VITALS: Ht 152.4 cm
[2018-03-12 17:41] LABS: APPEARANCE CLEAR (CLEAR); COLOR YELLOW (YELLOW)
[2018-03-12 17:49] LABS: BILIRUBIN NEGATIVE (NEGATIVE); GLUCOSE NEGATIVE (NEGATIVE); KETONE NEGATIVE (NEGATIVE); NITRITE NEGATIVE (NEGATIVE); PROTEIN NEGATIVE (NEGATIVE); SPECIFIC GRAVITY 1.015 (1.005-1.020); UROBILINOGEN NORMAL (NORMAL)
[2018-03-12 17:56] LABS: UDS - AMPHET NEGATIVE QUAL (NEGATIVE); UDS - BARB NEGATIVE QUAL (NEGATIVE); UDS - BENZO POSITIVE QUAL (NEGATIVE); UDS - COCAINE NEGATIVE QUAL (NEGATIVE); UDS - OPIATE NEGATIVE QUAL (NEGATIVE); UDS - PCP NEGATIVE QUAL (NEGATIVE); UDS - THC NEGATIVE QUAL (NEGATIVE)
[2018-03-12 17:57] LABS: BASOPHILS 0.4 % (0-2); EOSINOPHILS 2.4 % (0-7); HEMATOCRIT 37.8 % (36.0-48.0); HEMOGLOBIN 12.8 g/dL (12-16); IMMATURE GRANULOCYTES 0.1 % (0-5); MCHC 33.9 g/dL (31.0-37.0); MCV 94.5 fL (80.0-100.0); MONOCYTES 11.2 % (2-11); NEUTROPHILS 66.9 % (40-80); PLATELET COUNT 199 10x3/uL (130-400); RDW 12.6 % (11.5-14.5); WBC 7.2 10x3/uL (4.8-10.8)
[2018-03-12 17:59] LABS: RED CELLS - URINE OCC /hpf (0-5); WHITE CELLS - URINE 0-5 /hpf (0-5)
[2018-03-12 18:18] LABS: ALBUMIN 3.6 g/dL (3.4-5.0); ANION GAP 12.1 mmol/L (8-16); BILIRUBIN - TOTAL 0.41 mg/dL (0.2-1.3); CARBON DIOXIDE 28.1 mmol/L (21.0-32.0); CREATININE - SERUM 0.8 mg/dL (0.6-1.3); POTASSIUM - SERUM 4.2 mmol/L (3.5-5.1); PROTEIN - SERUM 6.8 g/dL (6.4-8.2)
[2018-03-12 21:05] VITALS: BP 148/100
[2018-03-13] MEDS ORDERED: METOPROLOL TART25 MG PO (00:44)
== END 2018-03-12 21:06 | disposition other institution (70) ==
LOC: D.ER 16:33
PROVIDERS: Family Medicine
DX: F32.9 Major depressive disorder, single episode, unspecified (principal)

== ENCOUNTER 2018-03-12 21:15 | Inpatient (IN) | payer MEDICARE, OTHER ==
[~2018-03-12] VITALS: Ht 152.4 cm; Wt 65.8 kg
--- NOTE | ~2018-03-12 | DS ---
PATIENT:ORALIA SWEENEY :33 MEDICAL RECORD: [id number] DISCHARGE SUMMARY ADMISSION DATE: 03/12/18 DISCHARGE DATE: 03/15/18 IDENTIFYING DATA: The patient is 82 years old and she was admitted to the hospital on a voluntary basis because of suicidal thoughts. The patient came to the Emergency Room endorsing a lot of depressive symptoms along with thoughts of self-harm. She was going to kill herself by taking an overdose of her medications. Upon interview, the patient said that she did not really want to kill herself and that it was a misunderstanding. She had language that was, at times, circumstantial and at other times disorganized. She did indeed endorse a lot of depressive symptoms and she also has a history of taking an overdose, although that was 30 years ago. She says that her problems are related to the of her in 2016 and that she has a great deal of anger and resentment about his . She also says that she lives in a house with her adult son and his , but she feels lonely and that they do not interact with her enough. HOSPITAL COURSE: The patient was admitted to the hospital and comprehensively evaluated from both a medical, psychological, and social standpoint. She was treated with antidepressant medications and did show improvement. She was also tested for dementia and does indeed have a significantly advanced dementia. She was given medications for this. She stabilized very nicely and arrangements were made for her to have the appropriate care in an environment that would be more stimulating. She was subsequently transitioned out of the hospital. DISCHARGE DIAGNOSES: AXIS I: 1. Major depression, moderate severity without psychotic features, recurrent. 2. Senile dementia of the Alzheimer's type. AXIS II: Deferred. AXIS III: Congestive heart failure, urinary tract infection, coronary artery disease, asthma, pneumonia, hypertension, hypothyroidism, chronic obstructive pulmonary disease. AXIS IV: Moderate psychosocial stressors. AXIS V: Global assessment of functioning is 45. PLAN: At the time of discharge, the patient was in good behavioral control with limited insight about her condition. She had no psychotic symptoms and no thoughts of harming herself or others. She had a role in formulating her outpatient treatment plan and agreed to follow its provisions. TRANSINT:[id number] Voice Confirmation ID: [id number] DOCUMENT ID: [id number] ELIZABETH DECKER MD at 1617 CC: [id number] DICTATION DATE: 03/28/18 1444 FAMILY COACH: 03/28/18 1634 DIS IN 03/15/18 [place] [id number] [place] [address]
--- NOTE | ~2018-03-12 | PSY ---
PATIENT NAME:ORALIA SWEENEY MEDICAL RECORD: [id number] : 33 LOCATION:[address] ADMISSION DATE: 03/12/18 ACCOUNT: [id number] PSYCHIATRIC EVALUATION DATE OF EVALUATION: 03/13/18 IDENTIFYING DATA: The patient is 82 years old and she was admitted to the hospital on a voluntary basis. CHIEF COMPLAINT: Suicidal thoughts. HISTORY OF PRESENT ILLNESS: The patient presented yesterday to the Emergency Room reporting depressive symptoms and thoughts of self-harm. She was going to kill herself by taking an overdose of her medications at home. In talking with her today, she says that she does not want to kill herself, but she does not want to exist. Trying to get some kind of an understanding as to how this is different or not a suicidal statement, I really was unable to be clear on. She is circumspect in her language and very disorganized at times. She endorses numerous neurovegetative depressive symptoms. She does have a history of overdose, although it was more than 30 years ago. She is relating most of her depressive symptoms to the of her in 2016. She feels that he was not properly cared for by the medical establishment and she has a great deal of anger and resentment about his . She also says that she lives in the same house with her adult son and his , but she still feels lonely that they do not have much interaction with her. PAST MEDICAL HISTORY: Significant for hypertension, previous OH, coronary artery disease, COPD, hysterectomy, appendectomy, cataract surgery and cardiac stents. PAST PSYCHIATRIC HISTORY: Significant for longstanding problems with depression and a suicide attempt via overdose that occurred when she was 47 years old. She has been seen intermittently on an outpatient basis by various psychiatrists, but none in the past 10 years. FAMILY HISTORY: Unknown. ALLERGIES: No known drug allergies. MEDICATIONS: Current medications include Prilosec, Singulair, Lipitor, Neurontin, metoprolol, and Advair Diskus. SOCIAL HISTORY: The patient is a former smoker, although she quit smoking many years ago. She is . 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 She is originally from [facility], but has lived in [place] and [place] prior to returning to [place] about 10 years ago. She has no history of drug or alcohol abuse. MENTAL STATUS EXAMINATION: The patient is awake, alert and oriented to person, place, as well as time and situation. Her mood is flat. Her affect is constricted. Thought processes are circumstantial. Her memory, concentration, and abstraction abilities are at least moderately impaired and she denies any active intent to harm herself or others as well as any overt psychotic symptoms. ASSETS: Supportive family members. LIABILITIES: Limited insight. DIAGNOSTIC IMPRESSION: AXIS I: Major depression, moderate severity without psychotic features, recurrent. Rule out dementia. AXIS II: Deferred. AXIS III Congestive heart failure, urinary tract infection, coronary artery disease, asthma, pneumonia, hypertension, hypothyroidism, chronic obstructive pulmonary disease. AXIS IV: Moderate psychosocial stressors. AXIS V: Global assessment of functioning is 40. PLAN: At this time, the patient will be admitted to the hospital for a comprehensive medical, psychological, and social evaluation. She will be treated with both mood stabilizing and memory enhancing medications. Her long-term prognosis is guarded. TRANSINT:[id number] Voice Confirmation ID: [id number] DOCUMENT ID: [id number] ELIZABETH DECKER MD at 1342 CC: [id number] DICTATION DATE: 03/13/18 1705 SWEATBAND CUTTING MACHINE OPERATOR: 03/13/18 1745 ADM IN [facility] [address] [place] [id number]
--- NOTE | ~2018-03-12 | PN ---
PATIENT:ORALIA SWEENEY MEDICAL RECORD: [id number] LOCATION:[address] ADMISSION DATE: 03/12/18 PROGRESS NOTE DATE OF SERVICE: 03/15/2018 SUBJECTIVE: The patient's case was discussed with staff. She has no new complaint. OBJECTIVE: The patient is in good behavioral control with a euthymic mood. She has no thoughts of harming herself or others and is tolerating her medicines well. ASSESSMENT: No change in diagnoses. PLAN: The patient is requesting discharge today. I have encouraged her to stay and allow me to further adjust medications, but she very much wants to go home and she certainly does not meet criteria for an involuntary hold and in one of these 49-51 decisions, I have decided not to discharge her against medical advice since she would become responsible for the hospital bill and that would likely be a great deal of distress to her and even though I am not quite ready, I would say I have mostly completed what needs to be done. Also, influencing my decision to allow her to go is her openness and willingness to outpatient followup and I am going to refer her to the day treatment program for elderly people at [facility]. She will receive intensive counseling there and it will also have follow up with the psychiatrist there. She is not acutely dangerous in any way and she also agrees to return to the Emergency Room should symptoms or feelings like that return. TRANSINT:[id number] Voice Confirmation ID: [id number] DOCUMENT ID: [id number] ELIZABETH DECKER MD at 0956 CC: [id number] DICTATION DATE: 03/15/18 1330 PARTS COORDINATOR: 03/15/18 1350 DIS IN 03/15/18 [facility] [address] [place] [id number]
--- NOTE | ~2018-03-12 | PN ---
PATIENT:ORALIA SWEENEY MEDICAL RECORD: [id number] LOCATION:[address] ADMISSION DATE: 03/12/18 PROGRESS NOTE DATE OF SERVICE: 03/14/2018 SUBJECTIVE: The patient's case was discussed with staff. She has no new complaint. OBJECTIVE: The patient is in good behavioral control with limited insight about her condition. She tolerates her medicines well. ASSESSMENT: No change in diagnoses. PLAN: Brief supportive and educational interventions were made. The patient says that she is not suicidal. She is sleeping and eating well. I am going to increase her Effexor slightly for its antidepressant effect. I am also going to reduce the dose of the scheduled Klonopin and do not plan to discharge her on that medication. TRANSINT:[id number] Voice Confirmation ID: [id number] DOCUMENT ID: [id number] ELIZABETH DECKER MD at 1312 CC: [id number] DICTATION DATE: 03/14/18 1410 CUT OUT MACHINE OPERATOR: 03/14/18 1430 ADM IN [place] [id number] [place] [id number]
[2018-03-12 22:25] VITALS: BMI 28.3
[2018-03-13] MEDS ORDERED: METOPROLOL TART25 MG PO (00:44)
[2018-03-13 06:38] VITALS: BMI 28.4
[2018-03-13 07:57] LABS: CHOL - HDL RATIO 3.2 ratio (2.3-4.1); LDL-HDL RATIO 1.6 ratio (1.5-3.5); THYROID STIMULATING HORMONE 2.91 uIU/mL (0.36-3.74)
[2018-03-13 09:50] VITALS: Ht 152.4 cm; Wt 65.8 kg
[2018-03-13 10:02] VITALS: BP 142/73
[2018-03-13 19:51] VITALS: BP 144/81
[2018-03-14 07:30] LABS: RAPID PLASMA REAGIN Non Reactive (Non Reactive)
[2018-03-14 09:18] LABS: FOLATE (FOLIC ACID) - SERUM >20.0 ng/mL (>3.0); VITAMIN D 25 HYDROXY 36.3 ng/mL (30.0-100.0)
[2018-03-14 10:30] VITALS: BP 95/61
[2018-03-14 20:07] VITALS: BP 178/82
[2018-03-15 09:18] VITALS: BP 141/51
[2018-03-15 09:38] VITALS: BP 141/51
[2018-03-15] MEDS ORDERED: EFFEXOR50 MG PO (13:31)
[2018-03-15] MEDS ORDERED: TRAZODONE HCL50 MG PO (13:31)
== END 2018-03-15 17:20 | disposition home or self-care (01) | DRG 885 ==
LOC: D.PSYCH 21:15
PROVIDERS: Psychiatry & Neurology Psychiatry
DX: F32.1 Major depressive disorder, single episode, moderate (principal); J18.9 Pneumonia, unspecified organism; R45.851 Suicidal ideations; J44.0 Chronic obstructive pulmonary disease with (acute) lower respiratory infection; N39.0 Urinary tract infection, site not specified; F41.9 Anxiety disorder, unspecified; E03.9 Hypothyroidism, unspecified; I11.0 Hypertensive heart disease with heart failure; I50.9 Heart failure, unspecified; M19.90 Unspecified osteoarthritis, unspecified site; G25.81 Restless legs syndrome; E78.5 Hyperlipidemia, unspecified; J30.9 Allergic rhinitis, unspecified; K21.9 Gastro-esophageal reflux disease without esophagitis; I25.10 Atherosclerotic heart disease of native coronary artery without angina pectoris; Z87.891 Personal history of nicotine dependence; I25.2 Old myocardial infarction

== ENCOUNTER 2018-03-27 15:48 | Emergency (ER) | payer MEDICARE, OTHER ==
[~2018-03-27] VITALS: Ht 152.4 cm; Wt 65.9 kg
[~2018-03-27 15:48] MED LIST changes: +EFFEXOR50 MG PO; +TRAZODONE HCL50 MG PO
[2018-03-27 15:52] VITALS: Ht 152.4 cm; Wt 65.9 kg
[2018-03-27 16:48] LABS: BASOPHILS 0.6 % (0-2); EOSINOPHILS 5.1 % (0-7); HEMATOCRIT 38.4 % (36.0-48.0); HEMOGLOBIN 12.9 g/dL (12-16); IMMATURE GRANULOCYTES 0.2 % (0-5); LYMPHOCYTES 29.7 % (15-50); MCH 31.2 pg (26.0-34.0); MCHC 33.6 g/dL (31.0-37.0); MEAN PLATELET VOLUME 9.9 fL (7.4-10.4); MONOCYTES 11.2 % (2-11); NEUTROPHILS 53.2 % (40-80); PLATELET COUNT 185 10x3/uL (130-400); RBC 4.13 10x6/uL (4.00-5.40); RDW 12.8 % (11.5-14.5); WBC 6.3 10x3/uL (4.8-10.8)
[2018-03-27 17:24] LABS: ALBUMIN 3.5 g/dL (3.4-5.0); ALKALINE PHOSPHATASE 100 U/L (46-116); ALT (SGPT) 18 U/L (10-68); AMYLASE - SERUM 30 U/L (25-115); BILIRUBIN - TOTAL 0.31 mg/dL (0.2-1.3); CALC OSMOLALITY 280 mosm/kg (275-300); CALCIUM 8.1 mg/dL (8.5-10.1); CARBON DIOXIDE 27.5 mmol/L (21.0-32.0); CHLORIDE - SERUM 106 mmol/L (98-107); CKMB 1.2 U/L (0.0-3.6); CREATINE KINASE 200 UL (21-215); CREATININE - SERUM 0.8 mg/dL (0.6-1.3); GLUCOSE 95 mg/dL (74-106); LIPASE 79 U/L (73-393); MAGNESIUM - SERUM 1.5 mg/dL (1.8-2.4); POTASSIUM - SERUM 3.6 mmol/L (3.5-5.1); PROTEIN - SERUM 6.7 g/dL (6.4-8.2); SODIUM 141 mmol/L (136-145); UREA NITROGEN 12 mg/dL (7-18); eGFR NON AFRICAN AMERICAN 72 mL/min (90-120)
[2018-03-27 17:25] LABS: TROPONIN-I < 0.017 ng/mL (0.000-0.060)
[2018-03-27 18:18] LABS: APPEARANCE CLEAR (CLEAR); BILIRUBIN NEGATIVE (NEGATIVE); COLOR YELLOW (YELLOW); GLUCOSE NEGATIVE (NEGATIVE); KETONE NEGATIVE (NEGATIVE); NITRITE NEGATIVE (NEGATIVE); PROTEIN NEGATIVE (NEGATIVE); UROBILINOGEN NORMAL (NORMAL)
[2018-03-27 18:19] LABS: BACTERIA NONE SEEN /hpf (NONE SEEN); EPITHELIAL CELLS RARE /hpf (0-5); RED CELLS - URINE NONE SEEN /hpf (0-5); WHITE CELLS - URINE 0-5 /hpf (0-5)
[2018-03-27 19:44] VITALS: BP 166/96
== END 2018-03-27 19:44 | disposition home or self-care (01) ==
LOC: D.ER 15:48
PROVIDERS: Family Medicine
DX: T50.905A Adverse effect of unspecified drugs, medicaments and biological substances, initial encounter (principal); Y92.019 Unspecified place in single-family (private) house as the place of occurrence of the external cause; R42 Dizziness and giddiness; E83.42 Hypomagnesemia; I50.9 Heart failure, unspecified

== ENCOUNTER → 2018-05-29 13:52 | Outpatient (CLI) | payer MEDICARE, OTHER ==
[2018-03-27 15:52] VITALS: BMI 28.3
== END | disposition home or self-care (01) ==
LOC: D.RT 13:52
DX: J44.9 Chronic obstructive pulmonary disease, unspecified (principal)

== ENCOUNTER 2018-07-10 10:17 | Inpatient (IN) | payer MEDICARE, OTHER ==
[~2018-07-10] VITALS: Ht 152.4 cm; Wt 61.5 kg
--- NOTE | ~2018-07-10 | MORECARE ---
CASE MANAGEMENT DISCHARGE SUMMARY PATIENT: ORALIA SWEENEY UNIT: [id number] ADM DATE: 07/10/18 AGE: 82 : 34 SEX: F ROOM/BED: D.0 AUTHOR: NEERAJ CORRALES PHYSICIAN: REFERRING PHYSICIAN: CAMDEN ALY DO DATE OF SERVICE: 07/12/18 Discharge Plan Patient Name: ORALIA SWEENEY [facility] [facility] 1935 Planned Disposition: Anticipated Discharge Date: 07/12/18 Discharge Date: Expected LOS: 2 Initial Reviewer: [email or web address] Initial Review Date: 07/12/2018 Generated: 07/12/18 12:06 pm DCPIA - Discharge Planning Initial Assessment Updated by [email or web address]: Mounika Saldana on 07/12/18 11:05 am * Is the patient Alert and Oriented? Yes * PCP JERMAIN * Pharmacy [facility] [address] * Preadmission Environment Home Alone * ADLs Partial Dependent * Partial ADLs (Assistance needed) Ambulation Bathing * Equipment Cane Nebulizer Walker * Other Equipment ADJUSTABLE BED * List name and contact numbers for known caregivers / representatives who currently or will assist patient after discharge: NEEL SWEENEY, SON, * Community resources currently utilized None * Additional services required to return to the preadmission environment? Yes * Has this patient been hospitalized within the prior 30 days at any hospital? No Coverage Notice Reviewer: [id number] - Mounika Saldana Notice Issued Date-Time: 07/12/2018 11:00 Notice Type: IM Discharge Notice Notice Delivered To: Patient Relationship to Patient: Self Lye Peel Operator Name: Delivery Method: HAND - Hand Delivered Katiuska Days: Prior Verbal Notification: Recipient Understood Notice: Yes Recipient Signature: Yes Med Rec Note Co-signed by Attending: Coverage Notice Comment: Patient Name: ORALIA SWEENEY Page [phone] at 1106 All edits/amendments must be made on the electronic document DICTATION DATE: 07/12/181105 RESEARCH LEADER: KRYSTYNA 07/12/181105 RPT#: [id number] DC DATE: STATUS: ADM IN [facility] [address] [place] [address] END OF REPORT
--- NOTE | ~2018-07-10 | EC ---
PATIENT:ORALIA SWEENEY DATE OF SERVICE: 07/10/18 SEX: F MEDICAL RECORD: [id number] DATE OF : 33 LOCATION:D.M2 D.212 AGE OF PATIENT: 82 ADMISSION DATE: 07/10/18 REFERRING PHYSICIAN: INTERPRETING PHYSICIAN: KEYLA ESCOBAR MD ECHOCARDIOGRAM REPORT ECHO CHARGES 5 ECHO LIMITED Date: 07/10/18 CLINICAL DIAGNOSIS: TAMPONADE ECHOCARDIOGRAPHIC MEASUREMENTS (adult normal given) AC root (d.<3.7cm) cm LV Septum d (<1.2 cm> cm Valve Excursion cm LV Septum (systole) cm Left Atria (s.<4.0cm> cm LVPW d(<1.2cm) cm RV (d.<2.3cm) cm LVPW (sytole) cm LV diastole(<5.6CM) cm MV E-F(>70mm/sec) cm LV systole cm LVOT Diameter 1.6 cm MV exc.(>10mm) cm Est.ejection fraction (50-75%) % DOPPLER: LVIT cm/sec A cm/sec E cm/sec LA cm/sec RVSP 32.8 mmHg LVOT 95 cm/sec AOP1/2T m/s Asc. Ao 162 cm/sec RVOT cm/sec RA cm/sec PA cm/sec AV Gradient Peak 10.5 mmHg AV Mean 6.1 mmHg AV Area 1.1 cm MV Gradient Peak mmHg MV Mean mmHg MV Area cm COMMENTS: Metal Refiner: Figueroa SPAULDING Hearing Officer: 1 Dr. Escobar TAPE# PACS Pericardial Effusion Y DATE OF SERVICE: 07/10/2018 FINDINGS: 1. Left ventricular chamber size is within normal limits. Left ventricular systolic function is normal. Overall ejection fraction is estimated at 60%. 2. Left atrium, right atrium, and right ventricular chamber sizes are within normal limit. 3. Valvular structures have normal structure and motion. 4. Doppler interrogation reveals mild tricuspid regurgitation. No other valvular insufficiency or stenosis. ECHOCARDIOGRAM REPORT [id number] ORALIA SWEENEY 5. Moderate pericardial effusion is present. There is possible slight right atrial collapse with this. Definitely, no right ventricular collapse; hence, no evidence of tamponade and pulmonary systolic pressure is estimated at 32 mmHg. 6. No evidence of left ventricular thrombus. TRANSINT:[id number] Voice Confirmation ID: [id number] DOCUMENT ID: [id number] KEYLA ESCOBAR MD at 1914 CC: [id number] DICTATION DATE: 07/10/18 163 GROCERY SPECIALIST: 07/10/18 1809 DIS IN 07/12/18 [address] [place] [id number]
--- NOTE | ~2018-07-10 | MORECARE ---
CASE MANAGEMENT DISCHARGE SUMMARY PATIENT: ORALIA SWEENEY UNIT: [id number] ADM DATE: 07/10/18 AGE: 82 : 34 SEX: F ROOM/BED: D.9689 AUTHOR: NEERAJ CORRALES PHYSICIAN: REFERRING PHYSICIAN: CAMDEN ALY DO DATE OF SERVICE: 07/13/18 Discharge Plan Patient Name: ORALIA SWEENEY [facility]:[place] : 1935 Planned Disposition: Inpatient Rehab Anticipated Discharge Date: 07/12/18 Discharge Date: 07/12/2018 Expected LOS: 2 Initial Reviewer: [id number] Initial Review Date: 07/12/2018 Generated: 07/13/18 10:05 am Comments DCP- Discharge Planning Updated by [email or web address]: Mounika Saldana on 07/12/18 10:[address] Patient Name: ORALIA SWEENEY Admission Status: Elective Accout number: [id number] Admission Date: 07-10-2018 : 1935 Admission Diagnosis: Attending: CAMDEN ALY Current LOS: 2 Anticipated DC Date: 07-12-2018 Planned Disposition: Primary Insurance: MEDICARE A & B Discharge Planning Comments: MET WITH PATIENT ABOUT DC PLANNING. PLANS TO DC TODAY TO INPATIENT REHAB OR HOME WITH HH. CHAYITO SIGNED IF HH. PATIENT CHOSE [facility], THEN [facility] FOR SECOND CHOICE. [facility] WITH INPT REHAB MEETING WITH HER NOW. PATIENT STATES ON Jul SHE IS MOVING TO [facility] WHICH IS AN INDEPENDANT LIVING CENTER. IMM SIGNED. CM WILL CONTINUE TO FOLLOW AND ASSIST NEEDED WITH DC PLANNING/NEEDS. Animal Nurse: Mounika Saldana DCPIA - Discharge Planning Initial Assessment Updated by [email or web address]: Mounika Saldana on 07/12/18 11:05 am * Is the patient Alert and Oriented? Yes * PCP JERMAIN * Pharm[facility] [address] * Preadmission Environment Home Alone * ADLs Partial Dependent * Partial ADLs (Assistance needed) Ambulation Bathing * Equipment Cane Nebulizer Walker * Other Equipment ADJUSTABLE BED * List name and contact numbers for known caregivers / representatives who currently or will assist patient after discharge: NEEL SWEENEY, SON, * Community resources currently utilized None * Additional services required to return to the preadmission environment? Yes * Has this patient been hospitalized within the prior 30 days at any hospital? No Coverage Notice Reviewer: [email or web address] Rosa Saldana Notice Issued Date-Time: 07/12/2018 11:00 Notice Type: IM Discharge Notice Notice Delivered To: Patient Relationship to Patient: Self Jack Tamp Operator Name: Delivery Method: HAND - Hand Delivered Katiuska Days: Prior Verbal Notification: Recipient Understood Notice: Yes Recipient Signature: Yes Med Rec Note Co-signed by Attending: Coverage Notice Comment: Reviewer: [email or web address] Saldana Notice Issued Date-Time: 07/12/2018 11:08 Notice Type: Patient Choice Letter Notice Delivered To: Patient Relationship to Patient: Self Jack Tamp Operator Name: Delivery Method: HAND - Hand Delivered Katiuska Days: Prior Verbal Notification: Recipient Understood Notice: Yes Recipient Signature: Yes Med Rec Note Co-signed by Attending: Coverage Notice Comment: SENTHIL GARRETT DP export: 07/12/18 10:14 Patient Name: ORALIA SWEENEY Page [phone] at 0906 All edits/amendments must be made on the electronic document DICTATION DATE: 07/13/18904 DECAL TRANSFERRER: KRYSTYNA 07/13/18904 RPT#: [id number] DC DATE:07/12/18 STATUS: DIS IN [facility] [address] [place] [address] END OF REPORT
--- NOTE | ~2018-07-10 | MORECARE ---
CASE MANAGEMENT DISCHARGE SUMMARY PATIENT: ORALIA SWEENEY UNIT: [id number] ADM DATE: 07/10/18 AGE: 82 : 34 SEX: F ROOM/BED: D.6516 AUTHOR: ANTONIDOC PHYSICIAN: REFERRING PHYSICIAN: CAMDEN ALY DO DATE OF SERVICE: 07/12/18 Discharge Plan Patient Name: ORALIA SWEENEY Facility: [facility]:[place] : 1935 Planned Disposition: Anticipated Discharge Date: 07/12/18 Discharge Date: Expected LOS: 2 Initial Reviewer: [email or web address] Initial Review Date: 07/12/2018 Generated: 07/12/18 12:14 pm Comments DCP- Discharge Planning Updated by [email or web address]: Mounika Saldana on 07/12/18 10:[address] Patient Name: ORALIA SWEENEY Admission Status: Elective Accout number: [id number] Admission Date: 07-10-2018 : 1935 Admission Diagnosis: Attending: CAMDEN ALY Current LOS: 2 Anticipated DC Date: 07-12-2018 Planned Disposition: Primary Insurance: MEDICARE A & B Discharge Planning Comments: MET WITH PATIENT ABOUT DC PLANNING. PLANS TO DC TODAY TO INPATIENT REHAB OR HOME WITH HH. CHAYITO SIGNED IF HH. PATIENT CHOSE [facility], THEN [facility] FOR SECOND CHOICE. [facility] WITH INPT REHAB MEETING WITH HER NOW. PATIENT STATES ON Jul SHE IS MOVING TO [facility] WHICH IS AN INDEPENDANT LIVING CENTER. IMM SIGNED. CM WILL CONTINUE TO FOLLOW AND ASSIST NEEDED WITH DC PLANNING/NEEDS. Broke Handler: Mounika Saldana DCPIA - Discharge Planning Initial Assessment Updated by [email or web address]: Mounika Saldana on 07/12/18 11:05 am * Is the patient Alert and Oriented? Yes * PCP JERMAIN * [facility] [address] * Preadmission Environment Home Alone * ADLs Partial Dependent * Partial ADLs (Assistance needed) Ambulation Bathing * Equipment Cane Nebulizer Walker * Other Equipment ADJUSTABLE BED * List name and contact numbers for known caregivers / representatives who currently or will assist patient after discharge: NEEL SWEENEY, SON, * Community resources currently utilized None * Additional services required to return to the preadmission environment? Yes * Has this patient been hospitalized within the prior 30 days at any hospital? No Coverage Notice Reviewer: [email or web address] Rosa Saldana Notice Issued Date-Time: 07/12/2018 11:00 Notice Type: IM Discharge Notice Notice Delivered To: Patient Relationship to Patient: Self Urologist Name: Delivery Method: HAND - Hand Delivered Katiuska Days: Prior Verbal Notification: Recipient Understood Notice: Yes Recipient Signature: Yes Med Rec Note Co-signed by Attending: Coverage Notice Comment: Reviewer: [email or web address] Rosa Saldana Notice Issued Date-Time: 07/12/2018 11:08 Notice Type: Patient Choice Letter Notice Delivered To: Patient Relationship to Patient: Self Urologist Name: Delivery Method: HAND - Hand Delivered Katiuska Days: Prior Verbal Notification: Recipient Understood Notice: Yes Recipient Signature: Yes Med Rec Note Co-signed by Attending: Coverage Notice Comment: SENTHIL GARRETT export: 07/12/18 10:06 Patient Name: ORALIA SWEENEY Page [phone] at 1114 All edits/amendments must be made on the electronic document DICTATION DATE: 07/12/181112 JUNIOR ANALYST: KRYSTYNA 07/12/18 111 RPT#: [id number] DC DATE: STATUS: ADM IN [facility] [address] [place] [address] END OF REPORT
--- NOTE | ~2018-07-10 | CN ---
PATIENT NAME:ORALIA SWEENEY MEDICAL RECORD: [id number] : 33 LOCATION:[facility] D.2120 ADMIT DATE: 07/10/18 ACCOUNT: [id number] CONSULTING PHYSICIAN: KEYLA HAMPTON MD REFERRING PHYSICIAN: CAMDEN ALY DO DATE OF CONSULTATION: 07/10/2018 CARDIOLOGY CONSULT PROBLEM LIST: 1. Pericardial effusion. 2. Shortness of breath. 3. Coronary disease, previous PTCA and stent. HISTORY: Mrs. Sweeney presents to Dr. Aly's office with shortness of breath. An echocardiogram was obtained. She has moderate pericardial effusion. There was a question of tamponade. The echo has been repeated here in the hospital. She does have a moderate pericardial effusion. She has minimal right atrial collapse. Definitely, no right ventricular collapse. Etiology of the pericardial effusion is unknown. She has no recent upper respiratory illness. She has no history of cancer. PHYSICAL EXAMINATION: GENERAL APPEARANCE: Well-nourished, well-developed, appears stated age. Level of distress, comfortable. PSYCHIATRIC: Mental status, alert, normal affect. Orientation, oriented to time, place and person. EYES: Lids and conjunctiva, noninjected. No discharge, no pallor. ENT: Lips, teeth, gums, normal dentition. Oropharynx, no cyanosis, no pallor. NECK: Carotid arteries, bilateral normal upstroke, no bruits, no thrills. JUGULAR VEINS: No jugular venous pressure or distention. CERVICAL LYMPH NODES: Nontender, nonenlarged. THYROID: Not enlarged. Nontender. No nodules. LUNGS: Respiratory effort, unlabored. CHEST: Normal curvature. No thoracic deformity. No chest wall tenderness. Percussion, resonant. Auscultation, clear. No wheezes, no rales, no rhonchi. CARDIOVASCULAR: Precordial exam, nondisplaced. No heaves or pericardial thrills. Rate and rhythm, regular. Heart sounds, normal S1, normal S2. No S3, no gallop, no rub. Systolic murmur, not heard. Diastolic murmur, not heard. EXTREMITIES: No cyanosis, no edema. Peripheral pulses, full and equal in all extremities, except as noted. No bruits appreciated. ABDOMEN: Soft, nondistended. Normal aorta. No bruit. Nontender. No masses. Liver, nontender, no hepatomegaly. Spleen, nontender, no splenomegaly. MUSCULOSKELETAL: No joint tenderness. No joint swelling. No erythema. NEUROLOGICAL: Normal gait, normal strength, normal tone. SKIN: Warm and dry. OVERALL IMPRESSION: Pericardial effusion, moderate. No clear-cut tamponade on echocardiogram. We will consult Dr. Arriola to see how he wants to drain this pericardial effusion. TRANSINT:[id number] Voice Confirmation ID: [id number] DOCUMENT ID: [id number] CONSULT REPORT [id number] ORALIA SWEENEY, KEYLA FRANCIS at 1914 CC: [id number] DICTATION DATE: 07/10/18 1618 PLANT SCIENTIST: 07/10/18 1724 DIS IN 07/12/18 [facility] [address] [place] [address]
--- NOTE | ~2018-07-10 | MORECARE ---
CASE MANAGEMENT DISCHARGE SUMMARY PATIENT: ORALIA SWEENEY UNIT: [id number] ADM DATE: 07/10/18 AGE: 82 : 34 SEX: F ROOM/BED: D.4981 AUTHOR: NEERAJ CORRALES PHYSICIAN: REFERRING PHYSICIAN: CAMDEN ALY DO DATE OF SERVICE: 07/13/18 Discharge Plan Patient Name: ORALIA SWEENEY Facility: [facility]:[place] : 1935 Planned Disposition: Inpatient Rehab Anticipated Discharge Date: 07/12/18 Discharge Date: 07/12/2018 Expected LOS: 2 Initial Reviewer: [id number] Initial Review Date: 07/12/2018 Generated: 07/13/18 10:13 am Comments DCP- Discharge Planning Updated by [email or web address]: Mounika Saldana on 07/12/18 10:[address] Patient Name: ORALIA SWEENEY Admission Status: Elective Accout number: [id number] Admission Date: 07-10-2018 : 1935 Admission Diagnosis: Attending: CAMDEN ALY Current LOS: 2 Anticipated DC Date: 07-12-2018 Planned Disposition: Primary Insurance: MEDICARE A & B Discharge Planning Comments: MET WITH PATIENT ABOUT DC PLANNING. PLANS TO DC TODAY TO INPATIENT REHAB OR HOME WITH HH. CHAYITO SIGNED IF HH. PATIENT CHOSE [facility], THEN [facility] FOR SECOND CHOICE. [facility] WITH INPT REHAB MEETING WITH HER NOW. PATIENT STATES ON Jul SHE IS MOVING TO [facility] WHICH IS AN INDEPENDANT LIVING CENTER. IMM SIGNED. CM WILL CONTINUE TO FOLLOW AND ASSIST NEEDED WITH DC PLANNING/NEEDS. Unit Assistant: Mounika Saldana DCPIA - Discharge Planning Initial Assessment Updated by [id number]: Mounika Saldana on 07/12/18 11:05 am * Is the patient Alert and Oriented? Yes * PCP JERMAIN * [facility] [address] * Preadmission Environment Home Alone * ADLs Partial Dependent * Partial ADLs (Assistance needed) Ambulation Bathing * Equipment Cane Nebulizer Walker * Other Equipment ADJUSTABLE BED * List name and contact numbers for known caregivers / representatives who currently or will assist patient after discharge: NEEL SWEENEY, SON, * Community resources currently utilized None * Additional services required to return to the preadmission environment? Yes * Has this patient been hospitalized within the prior 30 days at any hospital? No Coverage Notice Reviewer: [id number] Saldana Notice Issued Date-Time: 07/12/2018 11:00 Notice Type: IM Discharge Notice Notice Delivered To: Patient Relationship to Patient: Self Bb Shot Packer Name: Delivery Method: HAND - Hand Delivered Katiuska Days: Prior Verbal Notification: Recipient Understood Notice: Yes Recipient Signature: Yes Med Rec Note Co-signed by Attending: Coverage Notice Comment: Reviewer: [id number] Saldana Notice Issued Date-Time: 07/12/2018 11:08 Notice Type: Patient Choice Letter Notice Delivered To: Patient Relationship to Patient: Self Bb Shot Packer Name: Delivery Method: HAND - Hand Delivered Katiuska Days: Prior Verbal Notification: Recipient Understood Notice: Yes Recipient Signature: Yes Med Rec Note Co-signed by Attending: Coverage Notice Comment: SNETHIL GARRETT DP export: 07/13/18 8:05 Patient Name: ORALIA SWEENEY Page [phone] at 0913 All edits/amendments must be made on the electronic document DICTATION DATE: 07/13/18912 TICKER INSTALLER: KRYSTYNA 07/13/18912 RPT#: [id number] DC DATE:07/12/18 STATUS: DIS IN [facility] [address] [place] [address] END OF REPORT
[2018-07-10] MEDS ORDERED: NEURONTIN 300300 MG PO (11:32)
[2018-07-10 11:33] VITALS: BP 112/66; BMI 27.0
[2018-07-10 11:52] VITALS: BP 112/66
[2018-07-10 12:07] LABS: BASOPHILS 0.6 % (0-2); EOSINOPHILS 4.4 % (0-7); HEMATOCRIT 36.5 % (36.0-48.0); HEMOGLOBIN 12.2 g/dL (12-16); IMMATURE GRANULOCYTES 0.2 % (0-5); LYMPHOCYTES 29.2 % (15-50); MCH 31.4 pg (26.0-34.0); MCHC 33.4 g/dL (31.0-37.0); MCV 94.1 fL (80.0-100.0); MEAN PLATELET VOLUME 10.4 fL (7.4-10.4); MONOCYTES 11.3 % (2-11); NEUTROPHILS 54.3 % (40-80); PLATELET COUNT 202 10x3/uL (130-400); RBC 3.88 10x6/uL (4.00-5.40); RDW 12.8 % (11.5-14.5); WBC 6.4 10x3/uL (4.8-10.8)
[2018-07-10 12:33] LABS: ALBUMIN 3.3 g/dL (3.4-5.0); ALKALINE PHOSPHATASE 74 U/L (46-116); ALT (SGPT) 19 U/L (10-68); BILIRUBIN - TOTAL 0.68 mg/dL (0.2-1.3); CALC OSMOLALITY 280 mosm/kg (275-300); CALCIUM 8.2 mg/dL (8.5-10.1); CARBON DIOXIDE 27.1 mmol/L (21.0-32.0); CHLORIDE - SERUM 106 mmol/L (98-107); CREATININE - SERUM 0.4 mg/dL (0.6-1.3); GLUCOSE 86 mg/dL (74-106); PROTEIN - SERUM 5.8 g/dL (6.4-8.2); SODIUM 141 mmol/L (136-145); UREA NITROGEN 14 mg/dL (7-18); eGFR NON AFRICAN AMERICAN > 90 mL/min (90-120)
[2018-07-10 12:35] LABS: POTASSIUM - SERUM 5.2 mmol/L (3.5-5.1)
[2018-07-10 15:03] VITALS: BP 122/63
[2018-07-10] MEDS ORDERED: PROZAC40 MG PO (15:22)
[2018-07-10] MEDS ORDERED: REMERON15 MG PO (15:22)
[2018-07-10] MEDS ORDERED: OMEPRAZOLE20 M1 PO (15:23)
[2018-07-10] MEDS ORDERED: LASIX20 MG PO (15:23)
[2018-07-10] MEDS ORDERED: MIRALAX17 GM PO (15:24)
[2018-07-10 20:00] VITALS: BP 148/51
[2018-07-11] VITALS: BP 107/45
[2018-07-11 04:45] LABS: BASOPHILS 0.9 % (0-2); EOSINOPHILS 5.6 % (0-7); HEMATOCRIT 37.3 % (36.0-48.0); HEMOGLOBIN 12.4 g/dL (12-16); IMMATURE GRANULOCYTES 0.1 % (0-5); LYMPHOCYTES 33.5 % (15-50); MCH 31.3 pg (26.0-34.0); MCHC 33.2 g/dL (31.0-37.0); MCV 94.2 fL (80.0-100.0); MEAN PLATELET VOLUME 10.6 fL (7.4-10.4); MONOCYTES 11.1 % (2-11); NEUTROPHILS 48.8 % (40-80); PLATELET COUNT 197 10x3/uL (130-400); RBC 3.96 10x6/uL (4.00-5.40); RDW 12.7 % (11.5-14.5); WBC 6.8 10x3/uL (4.8-10.8)
[2018-07-11 05:02] LABS: ALBUMIN 2.9 g/dL (3.4-5.0); BILIRUBIN - TOTAL 0.41 mg/dL (0.2-1.3); CALCIUM 7.8 mg/dL (8.5-10.1); CARBON DIOXIDE 27.4 mmol/L (21.0-32.0); PROTEIN - SERUM 5.6 g/dL (6.4-8.2)
[2018-07-11 05:34] LABS: ANION GAP 10.5 mmol/L (8-16); CREATININE - SERUM 0.8 mg/dL (0.6-1.3); POTASSIUM - SERUM 3.9 mmol/L (3.5-5.1)
[2018-07-11 05:57] VITALS: BP 164/85
[2018-07-11 07:48] VITALS: BP 124/65
[2018-07-11 10:52] VITALS: BMI 26.1
[2018-07-11 11:31] VITALS: BP 114/65
[2018-07-11 14:18] VITALS: Ht 152.4 cm; Wt 61.5 kg
[2018-07-11 15:15] VITALS: BP 153/82
[2018-07-11 20:49] VITALS: BP 167/75
[2018-07-12 01:18] VITALS: BP 152/62
[2018-07-12 05:03] LABS: BASOPHILS 0.6 % (0-2); EOSINOPHILS 5.6 % (0-7); HEMOGLOBIN 12.2 g/dL (12-16); LYMPHOCYTES 30.3 % (15-50); MCH 31.2 pg (26.0-34.0); MCHC 33.9 g/dL (31.0-37.0); MEAN PLATELET VOLUME 10.1 fL (7.4-10.4); MONOCYTES 12.6 % (2-11); NEUTROPHILS 50.9 % (40-80); PLATELET COUNT 210 10x3/uL (130-400); RBC 3.91 10x6/uL (4.00-5.40); RDW 12.7 % (11.5-14.5); WBC 7.1 10x3/uL (4.8-10.8)
[2018-07-12 05:15] LABS: MCV 92.1 fL (80.0-100.0)
[2018-07-12 05:40] LABS: ALBUMIN 3.1 g/dL (3.4-5.0); ANION GAP 13.2 mmol/L (8-16); BILIRUBIN - TOTAL 0.33 mg/dL (0.2-1.3); CALCIUM 8.3 mg/dL (8.5-10.1); CARBON DIOXIDE 24.8 mmol/L (21.0-32.0); CREATININE - SERUM 0.9 mg/dL (0.6-1.3); PROTEIN - SERUM 5.9 g/dL (6.4-8.2)
[2018-07-12 06:15] VITALS: BP 90/42
[2018-07-12 08:27] VITALS: BP 174/64
[2018-07-12 11:59] VITALS: BP 150/76
[2018-07-12] MEDS ORDERED: FUROSEMIDE40 MG PO (13:17)
[2018-07-12] MEDS ORDERED: POTASSIUM CHLO10 ME1 PO (13:17)
[2018-07-12] MEDS ORDERED: LASIX40 MG PO (18:27)
[2018-07-13] MEDS ORDERED: BENADRYL25 MG PO (21:37)
== END 2018-07-12 18:02 | DRG 315 ==
LOC: D.M2 10:17
PROVIDERS: Family Medicine
DX: I31.3 Pericardial effusion (noninflammatory) (principal); F33.1 Major depressive disorder, recurrent, moderate; J44.9 Chronic obstructive pulmonary disease, unspecified; I11.0 Hypertensive heart disease with heart failure; I50.9 Heart failure, unspecified; I25.10 Atherosclerotic heart disease of native coronary artery without angina pectoris; Z95.5 Presence of coronary angioplasty implant and graft; F32.9 Major depressive disorder, single episode, unspecified; Z87.891 Personal history of nicotine dependence; E78.5 Hyperlipidemia, unspecified

== ENCOUNTER 2018-07-12 18:08 | Inpatient (IN) | payer MEDICARE, OTHER ==
[~2018-07-12] VITALS: Ht 152.4 cm; Wt 62.6 kg
--- NOTE | ~2018-07-12 | RHP ---
PATIENT: ORALIA SWEENEY MEDICAL RECORD: [id number] ACCOUNT: [id number] LOCATION:[id number] : [birth year] ADMISSION DATE: 07/12/18 REHABILITATION HISTORY AND PHYSICAL EXAMINATION POST ADMISSION PHYSICIAN EXAMINATION DATE OF ADMISSION: 07/12/2018 ADMITTING DIAGNOSES: Pericardial effusion with cardiac tamponade. HISTORY OF PRESENT ILLNESS: The patient is an 82-year-old female patient who is admitted to rehab. Apparently, she had a pericardial effusion and cardiac tamponade. On 07/10/2018, she presented to Dr. Bledsoe's office with shortness of breath. An echocardiogram was obtained. She had a pretty moderate pericardial effusion. There was question of a tamponade. She had minimal right atrial collapse, definitely no right ventricular collapse. There is no known cause of her pericardial effusion at this time. She was weak and fatigued. She was admitted to the [facility] for cardiology to james, cardiovascular surgeon to see if he wanted to drain this effusion. She is on telemetry with heart rates between 50 and 110, BP is a bit low at times, but also high. She got a history of COPD and is running sats of 90-96% on room air. She ambulated so far 200 feet, but she does get pretty short of breath and she is poorly balanced. Previously, she was living with her son and txhxclbu-xo-pal and she used a rolling walker at times, but not very often. She was independent with her ADLs and mobility, even drives herself around town. She has had 2 falls in less than a year, the last one being about 2 months ago. BARRIERS TO DISCHARGE: Problems with transitioning to independent living. She also has a history of recent falls. She has labile hypertension and required cardiac monitoring for arrhythmias and also been hypoxic at times. COMORBIDITIES: In this patient include history of pneumonia, gastroesophageal reflux disease, chronic UTI, restless legs, depression, anxiety, fatigue, history of VA, hyperlipidemia, COPD, hyperkalemia, hypothyroidism, hypertension, coronary artery disease, dyspnea anginal pain and CHF. PAST MEDICAL HISTORY: Significant for CHF, history of VA in the past, coronary artery disease, history of fracture, depression. PAST SURGICAL HISTORY: Includes gallbladder surgery, appendectomy, hysterectomy, shoulder surgery. She has had a lumpectomy. She has had bilateral shoulder surgeries, a tubal . She has had TAIL EDGER and stent 6 times. ALLERGIES: ADHESIVE TAPE AND LASIX. CURRENT MEDICATIONS: Include potassium 10 mEq daily, MiraLax 17 gm in 8 ounce of water daily, Protonix 40 mg daily, Lasix 40 mg daily, Prozac 40 mg daily, Neurontin 300 mg b.i.d., Singulair 10 mg at bedtime, Remeron 7.5 mg at bedtime, Lopressor 25 mg b.i.d., Imdur 60 mg b.i.d., DuoNeb updrafts q.i.d., Lipitor 10 mg at bedtime, and Tylenol 500 mg every 6 hours p.r.n. pain. HABITS: No alcohol or tobacco use. FAMILY HISTORY: Noncontributory. HISTORY AND PHYSICAL [id number] ORALIA SWEENEY SOCIAL HISTORY: The patient hopes to return back home and hopefully get back to her prior level of functioning and maybe even use a rolling walker a little bit more at times. PHYSICAL EXAMINATION: VITAL SIGNS: Stable. She is afebrile. GENERAL: A thin female in no acute distress upon exam. HEENT: Normocephalic and atraumatic. Mucosa moist. NECK: Supple. No lymphadenopathy. LUNGS: Clear at this time. HEART: Regular rate and rhythm. ABDOMEN: Benign. EXTREMITIES: No clubbing, cyanosis or edema. NEUROLOGIC: She seems intact. REVIEW OF SYSTEMS: GENERAL: Does complain of weakness and fatigue. HEENT: She denies cold, cough, or congestion. CARDIOVASCULAR: Denies any chest pain at this time. LUNGS: Does complain of shortness of breath with ambulation. LABORATORY DATA: Admit white count is 8.6, H&H of 12 and 38, and platelet count is 211. Her sodium is 142, potassium 3.9, BUN and creatinine of 20 and 0.8 and blood sugar is noted to be 101. ASSESSMENT: This is an 82-year-old female patient admitted to rehab with a working diagnosis of pericardial effusion, rule out cardiac tamponade and also limitation secondary to chronic obstructive pulmonary disease and O2 dependence at times. The patient has potential to make improvement. We instituted the following multidisciplinary therapies including, but not limited to physical, occupational, respiratory, speech, nutritional services, prosthetics and orthotics. Given her complex medical condition and risk for more complications, rehabilitation services cannot be provided at a low level of care such as skilled nurse facility. PLAN: 1. Admit to [facility] for intensive inpatient therapy to include the following disciplines: A. Physical therapy to improve gait, all transfer skills and bed mobility to a modified independent level. B. Occupational therapy to a modified independent level. C. Case management to assist with discharge planning and placement options. D. Nutrition to assist with nutritional needs. E. Rehabilitation nursing to assist in monitoring the patient's underlying medical conditions and to assist with any type of bowel or bladder management. 2. The patient's current medication and medical care will be continued. 3. The patient will be placed on standard fall precautions. 4. The patient's estimated length of stay is approximately 7 to 10 days. 5. We will watch her for any changes in her breathing and also for any signs of worsening of her pericardial effusion. I am going to probably follow her up in the a.m. either on Sunday or Sunday. TRANSINT:[id number] Voice Confirmation ID: [id number] DOCUMENT ID: [id number] 07/18/2018 Edited jhon AYALA. HISTORY AND PHYSICAL [id number] ORALIA SWEENEY notes whether there has been none or any medical/functional change since admission: - No change since preadmission screen. LUCY attests patient continues to be appropriate for IRF: - Contiues to be appropriate. ILANA VIVAR MD at 1404 CC: [id number] DICTATION DATE: 07/13/18 1031 CUSTODIAL SERVICES MANAGER: 07/13/18 1149 DIS IN 07/17/18 [place] [id number] [place] [address]
[~2018-07-12 18:08] MED LIST changes: +FUROSEMIDE40 MG PO; +LASIX20 MG PO; +OMEPRAZOLE20 M1 PO; +POTASSIUM CHLO10 ME1 PO; +REMERON15 MG PO
[2018-07-12] MEDS ORDERED: LASIX40 MG PO (18:27)
[2018-07-12 19:53] VITALS: BP 146/72; BMI 27.0
[2018-07-12 20:19] VITALS: BP 146/72
[2018-07-12 21:41] VITALS: BP 146/72
[2018-07-13 06:32] LABS: BASOPHILS 0.5 % (0-2); EOSINOPHILS 4.2 % (0-7); HEMATOCRIT 38.3 % (36.0-48.0); HEMOGLOBIN 12.9 g/dL (12-16); IMMATURE GRANULOCYTES 0.2 % (0-5); LYMPHOCYTES 25.1 % (15-50); MCH 31.5 pg (26.0-34.0); MCHC 33.7 g/dL (31.0-37.0); MCV 93.4 fL (80.0-100.0); MEAN PLATELET VOLUME 9.8 fL (7.4-10.4); MONOCYTES 9.3 % (2-11); NEUTROPHILS 60.7 % (40-80); PLATELET COUNT 211 10x3/uL (130-400); RDW 12.8 % (11.5-14.5); WBC 8.6 10x3/uL (4.8-10.8)
[2018-07-13 06:49] LABS: ANION GAP 12.2 mmol/L (8-16); CALCIUM 8.7 mg/dL (8.5-10.1); CARBON DIOXIDE 26.7 mmol/L (21.0-32.0); CREATININE - SERUM 0.8 mg/dL (0.6-1.3); POTASSIUM - SERUM 3.9 mmol/L (3.5-5.1)
[2018-07-13 08:41] VITALS: Ht 152.4 cm; Wt 62.6 kg
[2018-07-13 12:45] VITALS: BP 122/51
[2018-07-13 16:52] VITALS: BP 155/60
[2018-07-13 21:17] VITALS: BP 148/64
[2018-07-13] MEDS ORDERED: BENADRYL25 MG PO (21:37)
[2018-07-14 09:31] VITALS: BP 148/76
[2018-07-14 20:36] VITALS: BP 101/58
[2018-07-15 06:21] LABS: EOSINOPHILS 4.7 % (0-7); HEMATOCRIT 38.4 % (36.0-48.0); HEMOGLOBIN 12.8 g/dL (12-16); IMMATURE GRANULOCYTES 0.1 % (0-5); LYMPHOCYTES 32.4 % (15-50); MCH 31.4 pg (26.0-34.0); MCHC 33.3 g/dL (31.0-37.0); MCV 94.1 fL (80.0-100.0); MEAN PLATELET VOLUME 10.3 fL (7.4-10.4); MONOCYTES 10.8 % (2-11); PLATELET COUNT 222 10x3/uL (130-400); RBC 4.08 10x6/uL (4.00-5.40); RDW 12.8 % (11.5-14.5); WBC 7.7 10x3/uL (4.8-10.8)
[2018-07-15 06:30] LABS: ANION GAP 10.8 mmol/L (8-16); CALCIUM 9.1 mg/dL (8.5-10.1); CARBON DIOXIDE 28.9 mmol/L (21.0-32.0); CREATININE - SERUM 0.8 mg/dL (0.6-1.3); POTASSIUM - SERUM 3.7 mmol/L (3.5-5.1)
[2018-07-15 07:46] VITALS: BP 170/67
[2018-07-15 19:00] VITALS: BP 122/58
[2018-07-16 07:59] VITALS: BP 126/58
[2018-07-16 19:00] VITALS: BP 119/57
[2018-07-17 07:53] VITALS: BP 119/61
== END 2018-07-17 13:15 | disposition home health service (06) | DRG 315 ==
LOC: D.REHAB 18:08
PROVIDERS: Emergency Medicine
DX: I31.3 Pericardial effusion (noninflammatory) (principal); N39.0 Urinary tract infection, site not specified; K21.9 Gastro-esophageal reflux disease without esophagitis; G25.81 Restless legs syndrome; F41.8 Other specified anxiety disorders; I31.4 Cardiac tamponade; E78.5 Hyperlipidemia, unspecified; J44.9 Chronic obstructive pulmonary disease, unspecified; E03.9 Hypothyroidism, unspecified; I11.0 Hypertensive heart disease with heart failure; I50.9 Heart failure, unspecified; E87.5 Hyperkalemia; I25.10 Atherosclerotic heart disease of native coronary artery without angina pectoris; I25.2 Old myocardial infarction

== ENCOUNTER 2018-08-02 08:33 | Emergency (ER) | payer MEDICARE, OTHER ==
[~2018-08-02] VITALS: Ht 152.4 cm; Wt 62.7 kg
[~2018-08-02 08:33] MED LIST changes: +BENADRYL25 MG PO; +LASIX40 MG PO
[2018-08-02 08:34] VITALS: Ht 152.4 cm; Wt 62.7 kg
[2018-08-02 09:02] LABS: BASOPHILS 0.6 % (0-2); EOSINOPHILS 3.8 % (0-7); HEMATOCRIT 36.9 % (36.0-48.0); HEMOGLOBIN 12.1 g/dL (12-16); IMMATURE GRANULOCYTES 0.2 % (0-5); LYMPHOCYTES 20.6 % (15-50); MCH 31.2 pg (26.0-34.0); MCHC 32.8 g/dL (31.0-37.0); MCV 95.1 fL (80.0-100.0); MEAN PLATELET VOLUME 10.2 fL (7.4-10.4); MONOCYTES 9.1 % (2-11); NEUTROPHILS 65.7 % (40-80); PLATELET COUNT 207 10x3/uL (130-400); RBC 3.88 10x6/uL (4.00-5.40); RDW 12.8 % (11.5-14.5); WBC 6.3 10x3/uL (4.8-10.8)
[2018-08-02 09:18] LABS: ALBUMIN 3.4 g/dL (3.4-5.0); ANION GAP 9.2 mmol/L (8-16); BILIRUBIN - TOTAL 0.5 mg/dL (0.2-1.3); CALCIUM 8.4 mg/dL (8.5-10.1); CARBON DIOXIDE 29.6 mmol/L (21.0-32.0); CREATININE - SERUM 0.8 mg/dL (0.6-1.3); POTASSIUM - SERUM 3.8 mmol/L (3.5-5.1); PROTEIN - SERUM 6.1 g/dL (6.4-8.2)
[2018-08-02 09:45] LABS: APPEARANCE HAZY (CLEAR); BACTERIA MANY /hpf (NONE SEEN); BILIRUBIN NEGATIVE (NEGATIVE); COLOR YELLOW (YELLOW); EPITHELIAL CELLS 0-5 /hpf (0-5); GLUCOSE NEGATIVE (NEGATIVE); KETONE NEGATIVE (NEGATIVE); NITRITE POSITIVE (NEGATIVE); PROTEIN TRACE mg/dL (NEGATIVE); RED CELLS - URINE 0-5 /hpf (0-5); UROBILINOGEN NORMAL (NORMAL)
[2018-08-02 09:47] VITALS: BP 101/55
== END 2018-08-02 09:53 | disposition home or self-care (01) ==
LOC: D.ER 08:33
PROVIDERS: Family Medicine
DX: R42 Dizziness and giddiness (principal); R00.1 Bradycardia, unspecified; I50.9 Heart failure, unspecified

== ENCOUNTER → 2018-09-24 09:54 | Outpatient (CLI) | payer MEDICARE, OTHER ==
[2018-08-02 08:34] VITALS: BMI 27.0
== END | disposition home or self-care (01) ==
LOC: D.RAD 09:54
DX: J44.9 Chronic obstructive pulmonary disease, unspecified (principal)

== ENCOUNTER 2019-04-01 11:13 | Inpatient (IN) | payer MEDICARE, OTHER ==
[~2019-04-01] VITALS: Ht 152.4 cm; Wt 57.2 kg
--- NOTE | ~2019-04-01 | EC ---
PATIENT:ORALIA SWEENEY DATE OF SERVICE: 04/01/19 SEX: F MEDICAL RECORD: [id number] DATE OF : 33 LOCATION:D.MS Lamb223 AGE OF PATIENT: 83 ADMISSION DATE: 04/01/19 REFERRING PHYSICIAN: INTERPRETING PHYSICIAN: KEYLA ESCOBAR MD ECHOCARDIOGRAM REPORT ECHO CHARGES 4 ECHO COMPLETE Date: 04/01/19 CLINICAL DIAGNOSIS: PERICARDIAL EFFUSION ECHOCARDIOGRAPHIC MEASUREMENTS (adult normal given) AC root (d.<3.7cm) 3.0 cm LV Septum d (<1.2 cm> 1.6 cm Valve Excursion 1.3 cm LV Septum (systole) 2.2 cm Left Atria (s.<4.0cm> 3.3 cm LVPW d(<1.2cm) 1.3 cm RV (d.<2.3cm) 2.0 cm LVPW (sytole) 2.3 cm LV diastole(<5.6CM) 6.0 cm MV E-F(>70mm/sec) cm LV systole 3.8 cm LVOT Diameter 1.6 cm MV exc.(>10mm) cm Est.ejection fraction (50-75%) % DOPPLER: LVIT cm/sec A 104 cm/sec E 56.0 cm/sec LA cm/sec RVSP 37.0 mmHg LVOT 117 cm/sec AOP1/2T m/s Asc. Ao 183 cm/sec RVOT 72.0 cm/sec RA cm/sec PA 111 cm/sec AV Gradient Peak 13.4 mmHg AV Mean 7.7 mmHg AV Area 0.9 cm MV Gradient Peak 4.6 mmHg MV Mean 1.5 mmHg MV Area cm COMMENTS: Masonry Contractor: Pedro Luis CHINCHILLAOE Director Of Child Welfare Services: 1 Dr. Escobar TAPE# PACS Pericardial Effusion Y DATE OF SERVICE: 04/01/2019 PROCEDURE: Echocardiogram. FINDINGS: 1. Left ventricular chamber size is mildly dilated. Left ventricular systolic function is preserved at 55%. 2. Left atrium, right atrium, and right ventricular chamber sizes are within normal limits. 3. Valvular structures have normal structure and motion. ECHOCARDIOGRAM REPORT [id number] ORALIA SWEENEY 4. Doppler interrogation reveals mild aortic insufficiency, mild mitral regurgitation, mild tricuspid regurgitation, no other valvular insufficiency or stenosis. Pulmonary systolic pressure is estimated 37 mmHg. 5. Small pericardial effusion is present, unchanged from previous studies, not hemodynamically significant. 6. There does appear to be an echogenic structure in the IVC compatible with thrombus. TRANSINT:[id number] Voice Confirmation ID: [id number] DOCUMENT ID: [id number] KEYLA ESCOBAR MD CC: [id number] DICTATION DATE: 04/02/19 1153 HYDRAULIC AND PLUMBING INSTALLER: 04/02/19 [address] [facility] [address] [place] [address]
--- NOTE | ~2019-04-01 | CN ---
PATIENT NAME:ORALIA SWEENEY MEDICAL RECORD: [id number] : 33 LOCATION:D.MS Lamb2237 ADMIT DATE: 04/01/19 ACCOUNT: [id number] CONSULTING PHYSICIAN: KEYLA HAMPTON MD REFERRING PHYSICIAN: MACO MCCULLOUGH MD DATE OF CONSULTATION: 04/01/2019 CARDIOLOGY CONSULT DIAGNOSES: 1. Chronic pericardial effusion. 2. Pancreatitis. 3. Coronary artery disease. 4. Previous PTCA and stent. 5. Hyperlipidemia. 6. Hypertension. 7. COPD. HISTORY OF PRESENT ILLNESS: Mrs. Sweeney presents with pancreatitis. She has history of coronary artery disease and previous cardiac stenting, last being in 2010. She has had no recurrent angina. She does remain on Imdur. She does have hypertension. She is on metoprolol. She has hyperlipidemia, for which she is on atorvastatin; and COPD, for which she is on home nebs. She is stable from this standpoint. She has had a chronic pericardial effusion, we have been following on echo. She is scheduled for an echocardiogram tomorrow. She now presents with pancreatitis. She remains asymptomatic from the standpoint of pericardial effusion. PHYSICAL EXAMINATION: GENERAL APPEARANCE: Well-nourished, well-developed, appears stated age. Level of distress, comfortable. PSYCHIATRIC: Mental status, alert, normal affect. Orientation, oriented to time, place and person. EYES: Lids and conjunctiva, noninjected. No discharge, no pallor. ENT: Lips, teeth, gums, normal dentition. Oropharynx, no cyanosis, no pallor. NECK: Carotid arteries, bilateral normal upstroke, no bruits, no thrills. JUGULAR VEINS: No jugular venous pressure or distention. CERVICAL LYMPH NODES: Nontender, nonenlarged. THYROID: Not enlarged. Nontender. No nodules. LUNGS: Respiratory effort, unlabored. CHEST: Normal curvature. No thoracic deformity. No chest wall tenderness. Percussion, resonant. Auscultation, clear. No wheezes, no rales, no rhonchi. CARDIOVASCULAR: Precordial exam, nondisplaced. No heaves or pericardial thrills. Rate and rhythm, regular. Heart sounds, normal S1, normal S2. No S3, no gallop, no rub. Systolic murmur, not heard. Diastolic murmur, not heard. EXTREMITIES: No cyanosis, no edema. Peripheral pulses, full and equal in all extremities, except as noted. No bruits appreciated. ABDOMEN: Soft, nondistended. Normal aorta. No bruit. Nontender. No masses. Liver, nontender, no hepatomegaly. Spleen, nontender, no splenomegaly. MUSCULOSKELETAL: No joint tenderness. No joint swelling. No erythema. NEUROLOGICAL: Normal gait, normal strength, normal tone. SKIN: Warm and dry. OVERALL IMPRESSION: Chronic pericardial effusion. We will get the echo today or tomorrow as previously scheduled to reevaluate the pericardial effusion. No CONSULT REPORT [id number] ORALIA SWEENEY other cardiac workup or treatment is necessary. TRANSINT:[id number] Voice Confirmation ID: [id number] DOCUMENT ID: [id number] KEYLA HAMPTON MD CC: [id number] DICTATION DATE: 04/01/191601 CIGARETTE INSPECTOR: 04/01/19 190 ADM IN [facility] [address] [place] [id number]
[2019-04-01 12:08] LABS: BASOPHILS 0.1 % (0-2); EOSINOPHILS 0.1 % (0-7); HEMATOCRIT 44.3 % (36.0-48.0); HEMOGLOBIN 15.4 g/dL (12-16); IMMATURE GRANULOCYTES 0.1 % (0-5); MCH 32.7 pg (26.0-34.0); MCHC 34.8 g/dL (31.0-37.0); MCV 94.1 fL (80.0-100.0); MEAN PLATELET VOLUME 9.9 fL (7.4-10.4); NEUTROPHILS 77.7 % (40-80); RBC 4.71 10x6/uL (4.00-5.40); RDW 12.9 % (11.5-14.5)
[2019-04-01 12:12] LABS: PLATELET COUNT 272 10x3/uL (130-400)
[2019-04-01 12:24] LABS: APPEARANCE SL CLDY (CLEAR); BILIRUBIN NEGATIVE (NEGATIVE); COLOR YELLOW (YELLOW); GLUCOSE NEGATIVE (NEGATIVE); KETONE NEGATIVE (NEGATIVE); NITRITE NEGATIVE (NEGATIVE); PROTEIN NEGATIVE (NEGATIVE); UROBILINOGEN NORMAL (NORMAL)
[2019-04-01 12:24] LABS: ALKALINE PHOSPHATASE 93 U/L (46-116); ALT (SGPT) 19 U/L (10-68); BILIRUBIN - TOTAL 0.64 mg/dL (0.2-1.3); CALC OSMOLALITY 284 mosm/kg (275-300); CALCIUM 9.6 mg/dL (8.5-10.1); CARBON DIOXIDE 32.3 mmol/L (21.0-32.0); CHLORIDE - SERUM 102 mmol/L (98-107); CREATININE - SERUM 0.8 mg/dL (0.6-1.3); GLUCOSE 120 mg/dL (74-106); POTASSIUM - SERUM 3.4 mmol/L (3.5-5.1); PROTEIN - SERUM 7.6 g/dL (6.4-8.2); SODIUM 142 mmol/L (136-145); UREA NITROGEN 15 mg/dL (7-18); eGFR NON AFRICAN AMERICAN 72 mL/min (90-120)
[2019-04-01 12:28] LABS: AMYLASE - SERUM 214 U/L (25-115); TROPONIN-I < 0.017 ng/mL (0.000-0.060)
[2019-04-01 12:38] LABS: LIPASE 4077 U/L (73-393)
[2019-04-01 14:25] VITALS: BP 210/104
[2019-04-01] MEDS ORDERED: LIPITOR40 MG PO (14:47)
[2019-04-01 14:50] VITALS: BP 116/78
--- NOTE | 2019-04-01 14:51 | NUR ---
PT BEING TRANSPORTED TO ROOM, ZOFRAN DRIP ARRIVED JUST BEFORE TRANSPORT. ZOFRAN DRIP SENT WITH PT TO ROOM.
[2019-04-01 15:29] VITALS: BP 105/69; BMI 24.6
[2019-04-01 17:53] LABS: CHOL - HDL RATIO 2.4 ratio (2.3-4.1); LDL-HDL RATIO 1.1 ratio (1.5-3.5)
[2019-04-01 18:45] VITALS: BP 105/69
--- NOTE | 2019-04-01 19:53 | NUR ---
PT RESTING IN BED WATCHING TV. NO SIGNS OF DISTRESS. DENIES ANY NEEDS AT THIS TIME. BED LOW, CALL LIGHT IN REACH, RAILS UP X 2. WILL CONTINUE TO MONITOR.
[2019-04-01 20:00] VITALS: BP 100/62
[2019-04-02 04:00] VITALS: BP 92/50
[2019-04-02 07:00] LABS: BASOPHILS 0.2 % (0-2); EOSINOPHILS 0.7 % (0-7); HEMATOCRIT 36.5 % (36.0-48.0); IMMATURE GRANULOCYTES 0.3 % (0-5); LYMPHOCYTES 19.1 % (15-50); MCH 31.6 pg (26.0-34.0); MCHC 32.6 g/dL (31.0-37.0); MONOCYTES 10.3 % (2-11); NEUTROPHILS 69.4 % (40-80); RDW 13.3 % (11.5-14.5)
[2019-04-02 07:15] LABS: HEMOGLOBIN 11.9 g/dL (12-16); MCV 97.1 fL (80.0-100.0); PLATELET COUNT 217 10x3/uL (130-400); RBC 3.76 10x6/uL (4.00-5.40); WBC 9.5 10x3/uL (4.8-10.8)
[2019-04-02 09:27] LABS: ALBUMIN 3.1 g/dL (3.4-5.0); ANION GAP 12.8 mmol/L (8-16); BILIRUBIN - TOTAL 0.75 mg/dL (0.2-1.3); CALCIUM 8.2 mg/dL (8.5-10.1); CARBON DIOXIDE 24.5 mmol/L (21.0-32.0); CREATININE - SERUM 0.9 mg/dL (0.6-1.3); POTASSIUM - SERUM 3.3 mmol/L (3.5-5.1); PROTEIN - SERUM 6.3 g/dL (6.4-8.2)
--- NOTE | 2019-04-02 11:33 | NUR ---
IV RESITED TO LEFT FOREARM X 1 STICK 22G. IV REMOVED FROM UPPER FOREARM DUE TO UNABLE TO FLUSH
[2019-04-02 13:41] VITALS: BP 90/72
[2019-04-02 14:41] VITALS: Ht 152.4 cm; Wt 57.2 kg
[2019-04-02 17:21] VITALS: BP 100/49
[2019-04-02 20:00] VITALS: BP 97/51
--- NOTE | 2019-04-02 21:01 | NUR ---
AWAKE,ALERT.NO COMPLAITNS VOICED. RESP EVEN AND UNLABORED. NO DISTRESS NOTED. CL IN REACH
[2019-04-03 04:00] VITALS: BP 112/51
[2019-04-03 05:29] LABS: BASOPHILS 0.5 % (0-2); EOSINOPHILS 2.2 % (0-7); HEMATOCRIT 33.1 % (36.0-48.0); HEMOGLOBIN 10.7 g/dL (12-16); IMMATURE GRANULOCYTES 0.2 % (0-5); LYMPHOCYTES 26.3 % (15-50); MCH 31.8 pg (26.0-34.0); MCHC 32.3 g/dL (31.0-37.0); MCV 98.2 fL (80.0-100.0); MEAN PLATELET VOLUME 9.4 fL (7.4-10.4); MONOCYTES 10.3 % (2-11); NEUTROPHILS 60.5 % (40-80); PLATELET COUNT 179 10x3/uL (130-400); RBC 3.37 10x6/uL (4.00-5.40); RDW 13.3 % (11.5-14.5); WBC 8.8 10x3/uL (4.8-10.8)
[2019-04-03 05:54] LABS: ALBUMIN 2.8 g/dL (3.4-5.0); ANION GAP 12.9 mmol/L (8-16); BILIRUBIN - TOTAL 0.5 mg/dL (0.2-1.3); CALCIUM 7.6 mg/dL (8.5-10.1); CARBON DIOXIDE 25.1 mmol/L (21.0-32.0); CREATININE - SERUM 0.8 mg/dL (0.6-1.3); PROTEIN - SERUM 5.2 g/dL (6.4-8.2)
--- NOTE | 2019-04-03 06:22 | NUR ---
I have reviewed this patient and I concur with the Shift Assessment completed by the Licensed Practical Nurse today this shift.
[2019-04-03 07:40] VITALS: BP 130/72
--- NOTE | 2019-04-03 07:40 | NUR ---
PT SITTING UP IN BED. NO ACUTE DISTRESS NOTED. RESP EVEN AND UNLABORED. PT VOICES CONCERNS REGARDING RECIEVING HER HOME MEDICATIONS. DISCUSSED MEDICATIONS CURRENTLY PRESCRIBED. PT VOICES PAIN 2/10 AT THIS TIME. IV TO LEFT WRIST WITH NS @ 75ML/HR, ZOFRAN @ 4.7 ML/HR BOTH INFUSING VIA PUMP. SITE WITHOUT REDNESS OR EDEMA. DENIES NAUSEA OR VOMITING AT THIS TIME. VOICES BM THIS AM AND PASSING GAS. DENIES FURTHER NEEDS AT THIS TIME. CL WITHIN REACH. ENCOURAGED TO CALL WITH NEEDS. CONTINUE POC
[2019-04-03] MEDS ORDERED: ZANTAC300 MG PO (08:38)
[2019-04-03] MEDS ORDERED: RANITIDINE HCL150 M1 PO (08:38)
[2019-04-03] MEDS ORDERED: BUSPAR5 MG PO (08:44)
[2019-04-03] MEDS ORDERED: ASPIRIN81 MG PO (08:44)
--- NOTE | 2019-04-03 09:00 | MORECARE ---
CASE MANAGEMENT DISCHARGE SUMMARY PATIENT: ORALIA SWEENEY UNIT: [id number] ADM DATE: 04/01/19 AGE: 83 : 34 SEX: F ROOM/BED: D.2237 AUTHOR: NEERAJ CORRALES PHYSICIAN: REFERRING PHYSICIAN: MACO MCCULLOUGH MD DATE OF SERVICE: 04/03/19 Discharge Plan Patient Name: ORALIA SWEENEY [facility] [facility] 1935 Planned Disposition: Other Type of Facility Anticipated Discharge Date: Discharge Date: Expected LOS: Initial Reviewer: [email or web address] Initial Review Date: 04/03/2019 Generated: 04/03/19 9:59 am DCPIA - Discharge Planning Initial Assessment Updated by [email or web address]: Chante Miguel on 04/03/19 8:53 am * Is the patient Alert and Oriented? Yes * How many steps to enter\exit or inside your home? 0/0 * PCP Dr. Hwang * Pharmacy [facility] * Preadmission Environment Independent [facility] Apartment * Facility Name [facility] * ADLs Independent * Equipment Nebulizer Oxygen * List name and contact numbers for known caregivers / representatives who currently or will assist patient after discharge: [employer] is [place] * Verbal permission to speak to the caregivers and representatives has been obtained from the patient. Yes * Community resources currently utilized Other * Please name any agencies selected above. Has recently had OP PT on shoulder at [facility] * Additional services required to return to the preadmission environment? No * Can the patient safely return to the preadmission environment? Yes * Has this patient been hospitalized within the prior 30 days at any hospital? No Patient Name: ORALIA SWEENEY Page 91250 at 0900 All edits/amendments must be made on the electronic document DICTATION DATE: 04/03/19858 RETIREMENT ASSISTANT: KRYSTYNA 04/03/19858 RPT#: [id number] DC DATE: STATUS: ADM IN [facility] [address] [place] [address] END OF REPORT
--- NOTE | 2019-04-03 09:08 | MORECARE ---
CASE MANAGEMENT DISCHARGE SUMMARY PATIENT: ORALIA SWEENEY UNIT: [id number] ADM DATE: 04/01/19 AGE: 83 : 34 SEX: F ROOM/BED: D.2237 AUTHOR: ANTONIDOC PHYSICIAN: REFERRING PHYSICIAN: MACO BELTRE MD DATE OF SERVICE: 04/03/19 Discharge Plan Patient Name: ORALIA SWEENEY Facility: [facility]:[place] : 1935 Planned Disposition: Other Type of Facility Anticipated Discharge Date: Discharge Date: Expected LOS: Initial Reviewer: [email or web address] Initial Review Date: 04/03/2019 Generated: 04/03/19 10:08 am Comments DCP- Discharge Planning Updated by [email or web address]: Chante Miguel on 04/03/19 8:[address] Patient Name: ORALIA SWEENEY Admission Status: ER Accout number: [id number] Admission Date: 04-01-2019 : 1935 Admission Diagnosis: Attending: MACO BELTRE Current LOS: 2 Anticipated DC Date: Planned Disposition: Other Type of Facility Primary Insurance: MEDICARE A & B Discharge Planning Comments: CM met with patient per her request. She has complaints that her medication list was wrong. She gave me her list and I have updated the computer. Her list is also not correct from what she tells me on review. She states the ER nurse stated she did not need to see her list because it was all in the computer. I called Bruna Bucsh and informed her, and she is going to speak with her. I also informed [facility] that the patient was unhappy that Dr. Beltre saw her instead of Dr. Hwang. I tried to explain to her that Dr. Beltre was e commerce solution architect this week for Dr. Hwang. She lives at [facility] with her friend Paul Madrid and plans on returning at discharge. She has been going to [facility] PT for her shoulder. She declines need for home health. She states "I can run circles around you." No needs identified. CM will continue to follow and assist with discharge planning/needs. Luís Denver - [facility] - [phone] Paul Madrid - room mate - [phone] Certified Social Workers In Health Care: Chante Miguel DCPIA - Discharge Planning Initial Assessment Updated by [email or web address]: Chante Miguel on 04/03/19 8:53 am * Is the patient Alert and Oriented? Yes * How many steps to enter\\exit or inside your home? 0/0 * PCP Dr. Hwang * Pharmacy [facility] * Preadmission Environment Independent [facility] Apartment * Facility Name [facility] * ADLs Independent * Equipment Nebulizer Oxygen * List name and contact numbers for known caregivers / representatives who currently or will assist patient after discharge: [employer] is [employer] * Verbal permission to speak to the caregivers and representatives has been obtained from the patient. Yes * Community resources currently utilized Other * Please name any agencies selected above. Has recently had OP PT on shoulder at [facility] * Additional services required to return to the preadmission environment? No * Can the patient safely return to the preadmission environment? Yes * Has this patient been hospitalized within the prior 30 days at any hospital? No Last DP export: 04/03/19 7:59 a Patient Name: ORALIA SWEENEY Page 24754 at 0908 All edits/amendments must be made on the electronic document DICTATION DATE: 04/03/19906 MOTORCYCLE RIDING INSTRUCTOR: KRYSTYNA 04/03/19906 RPT#: [id number] DC DATE: STATUS: ADM IN [facility] [address] [place] [address] END OF REPORT
[2019-04-03] MEDS ORDERED: LOPRESSOR25 MG PO (11:03)
--- NOTE | 2019-04-03 13:02 | MORECARE ---
CASE MANAGEMENT DISCHARGE SUMMARY PATIENT: ORALIA SWEENEY UNIT: [id number] ADM DATE: 04/01/19 AGE: 83 : 34 SEX: F ROOM/BED: D.2237 AUTHOR: ANTONIDOC PHYSICIAN: REFERRING PHYSICIAN: MACO BLETRE MD DATE OF SERVICE: 04/03/19 Discharge Plan Patient Name: ORALIA SWEENEY Facility: [facility]:[place] : 1935 Planned Disposition: Other Type of Facility Anticipated Discharge Date: Discharge Date: Expected LOS: Initial Reviewer: [email or web address] Initial Review Date: 04/03/2019 Generated: 04/03/19 2:01 pm Comments DCP- Discharge Planning Updated by [email or web address]: Chantemathew Miguel on 04/03/19 11:[address] Patient Name: ORALIA SWEENEY Encounter No: [id number] : 1935 Primary Insurance: MEDICARE A & B Anticipated DC Date: Planned Disposition: Other Type of Facility External Planned Provider: : DCP follow-up note: Patient and family in agreement with discharge plan. No changes to plan. Case management will follow and assist as needed. Chante Myriam DCP- Discharge Planning Updated by [email or web address]: Chante Miguel on 04/03/19 8:[address] Patient Name: ORALIA SWEENEY Admission Status: ER Accout number: [id number] Admission Date: 04-01-2019 : 1935 Admission Diagnosis: Attending: MACO BELTRE Current LOS: 2 Anticipated DC Date: Planned Disposition: Other Type of Facility Primary Insurance: MEDICARE A & B Discharge Planning Comments: CM met with patient per her request. She has complaints that her medication list was wrong. She gave me her list and I have updated the computer. Her list is also not correct from what she tells me on review. She states the ER nurse stated she did not need to see her list because it was all in the computer. I called Bruna Narayan and informed her, and she is going to speak with her. I also informed Marlena that the patient was unhappy that Dr. Beltre saw her instead of Dr. Hwang. I tried to explain to her that Dr. Beltre was research home economist this week for Dr. Hwang. She lives at [facility] with her friend Paul Madrid and plans on returning at discharge. [facility]. She declines need for home health. She states "I can run circles around you." No needs identified. CM will continue to follow and assist with discharge planning/needs. Luís Denver - son - [phone] Paul Madrid - room [facility] - [phone] Vp Public Relations: Chante Miguel DCPIA - Discharge Planning Initial Assessment Updated by [email or web address]: Chante Miguel on 04/03/19 8:53 am * Is the patient Alert and Oriented? Yes * How many steps to enter\\exit or inside your home? 0/0 * PCP Dr. Hwang * Pharmacy [facility] * Preadmission Environment Independent [facility] Apartment * Facility Name [facility] * ADLs Independent * Equipment Nebulizer Oxygen * List name and contact numbers for known caregivers / representatives who currently or will assist patient after discharge: [employer] is [employer] * Verbal permission to speak to the caregivers and representatives has been obtained from the patient. Yes * Community resources currently utilized Other * Please name any agencies selected above. Has recently had OP PT on shoulder at [facility] * Additional services required to return to the preadmission environment? No * Can the patient safely return to the preadmission environment? Yes * Has this patient been hospitalized within the prior 30 days at any hospital? No Last DP export: 04/03/19 8:08 a Patient Name: ORALIA SWEENEY Page 48629 at 1302 All edits/amendments must be made on the electronic document DICTATION DATE: 04/03/19 1301 REMOTE BROADCAST TECHNICIAN: KRYSTYNA 04/03/19 1301 RPT#: [id number] DC DATE: STATUS: ADM IN [facility] [address] [place] [address] END OF REPORT
[2019-04-03 13:43] VITALS: BP 122/61
--- NOTE | 2019-04-03 15:33 | NUR ---
PT DISCHARGE INSTRUCTIONS PROVIDED FOR DISCHARGE. DISCUSSED FOLLOW UP APPOINTMENTS WITH DR. ALY AND DR. HAMPTON. MEDICATIONS CALLED INTO PHARMACY OF CHOICE. AIRCRAFT INSPECTION RECORD CLERK HERE PREVIOUSLY TO DISCUSS DIET. PT DENIES QUESTIONS AT THIS TIME. IV D/C'D TO LEFT WRIST, CATH INTACT. PT TAKEN OUT VIA W/C TO PRIVATE VEHICHLE WITH ALL PERSONAL BELONGINGS.
--- NOTE | 2019-04-03 15:34 | NUR ---
Nutrition education: Pt requested diet information for chronic pancreatitis. Provided pt with printed diet handout. Reviewed handout with pt. Pt keeps asking me what has caused her pancreatitis. Pt not happy with my explanation and keeps asking to see the doctor. Pt keeps going over and over the handout and asking me the same questions over and over. RDN explained the diet to the best of my ability. Pt given RDN name and phone number. RDN will be available if needed.
== END 2019-04-03 15:38 | disposition home or self-care (01) | DRG 439 ==
LOC: D.ER 11:13 → D.MS 14:22
PROVIDERS: Family Medicine; ADMIT Internal Medicine Nephrology; ATTEND Internal Medicine Nephrology
DX: K85.90 Acute pancreatitis without necrosis or infection, unspecified (principal); K56.7 Ileus, unspecified; I31.3 Pericardial effusion (noninflammatory); I25.10 Atherosclerotic heart disease of native coronary artery without angina pectoris; E87.6 Hypokalemia; F32.9 Major depressive disorder, single episode, unspecified; E78.5 Hyperlipidemia, unspecified; J44.9 Chronic obstructive pulmonary disease, unspecified

== ENCOUNTER → 2019-05-16 08:19 | Outpatient (CLI) | payer MEDICARE, OTHER ==
[2019-04-02 14:41] VITALS: BMI 24.6
[~2019-05-16 08:19] MED LIST changes: +ASPIRIN81 MG PO; +BUSPAR5 MG PO; +LIPITOR40 MG PO; +RANITIDINE HCL150 M1 PO; +ZANTAC300 MG PO
== END | disposition home or self-care (01) ==
LOC: D.RT 05-12 09:00 → D.RAD 05-12 09:45 → D.RT 09:00
PROVIDERS: ATTEND Nurse Practitioner Acute Care
DX: J44.9 Chronic obstructive pulmonary disease, unspecified (principal)

== ENCOUNTER → 2019-06-18 08:08 | Outpatient (CLI) | payer MEDICARE, OTHER ==
[2019-04-02 14:41] VITALS: BMI 24.6
[~2019-06-18 08:08] MED LIST changes: +CARDIZEM30 MG PO; +OMEPRAZOLE CAP 20M PO; +PREDNISONE5 MG PO; +VALIUM 2 MG TAB2 MG PO
== END | disposition home or self-care (01) ==
LOC: D.HCCARDIO 08:08
PROVIDERS: ATTEND Internal Medicine Cardiovascular Disease
DX: I25.119 Atherosclerotic heart disease of native coronary artery with unspecified angina pectoris (principal); R06.00 Dyspnea, unspecified

== ENCOUNTER 2019-06-27 23:38 | Observation (INO) | payer MEDICARE, OTHER ==
[~2019-06-27] VITALS: Ht 152.4 cm; Wt 58.4 kg
[~2019-06-27 23:38] MED LIST changes: -CARDIZEM30 MG PO; -OMEPRAZOLE CAP 20M PO; -PREDNISONE5 MG PO; -VALIUM 2 MG TAB2 MG PO
[2019-06-28 00:10] LABS: BASOPHILS 0.2 % (0-2); EOSINOPHILS 1.2 % (0-7); HEMATOCRIT 39.9 % (36.0-48.0); HEMOGLOBIN 12.9 g/dL (12-16); IMMATURE GRANULOCYTES 0.2 % (0-5); LYMPHOCYTES 9.9 % (15-50); MCH 31.5 pg (26.0-34.0); MCHC 32.3 g/dL (31.0-37.0); MCV 97.6 fL (80.0-100.0); MEAN PLATELET VOLUME 10.2 fL (7.4-10.4); MONOCYTES 5.9 % (2-11); NEUTROPHILS 82.6 % (40-80); PLATELET COUNT 195 10x3/uL (130-400); RBC 4.09 10x6/uL (4.00-5.40); RDW 13.1 % (11.5-14.5); WBC 10.6 10x3/uL (4.8-10.8)
[2019-06-28 00:21] LABS: APTT 25.9 SECONDS (22.8-39.4); INR 0.99 (0.85-1.17); PROTIME 12.6 SECONDS (11.6-15.0)
--- NOTE | 2019-06-28 00:22 | NUR ---
EKG REPEATED, PT NSR NOW, EDP INFORMED, ORDER FOR CARDIZEM CANCELLED.
--- NOTE | 2019-06-28 00:35 | NUR ---
PT AMBULATED TO RESTROOM WITH NURSE ASSISTANCE
[2019-06-28 00:39] LABS: ALBUMIN 3.2 g/dL (3.4-5.0); ALKALINE PHOSPHATASE 78 U/L (46-116); ALT (SGPT) 22 U/L (10-68); BILIRUBIN - TOTAL 0.34 mg/dL (0.2-1.3); CALCIUM 8.2 mg/dL (8.5-10.1); CARBON DIOXIDE 27.3 mmol/L (21.0-32.0); CHLORIDE - SERUM 110 mmol/L (98-107); CREATININE - SERUM 0.9 mg/dL (0.6-1.3); MAGNESIUM - SERUM 2.1 mg/dL (1.8-2.4); POTASSIUM - SERUM 3.5 mmol/L (3.5-5.1); PRO BNP 236 pg/mL (0-450); PROTEIN - SERUM 6.4 g/dL (6.4-8.2); SODIUM 147 mmol/L (136-145); THYROID STIMULATING HORMONE 1.83 uIU/mL (0.36-3.74); UREA NITROGEN 18 mg/dL (7-18); eGFR NON AFRICAN AMERICAN 63 mL/min (90-120)
[2019-06-28 00:40] LABS: CALC OSMOLALITY 298 mosm/kg (275-300); GLUCOSE 180 mg/dL (74-106); TROPONIN-I < 0.017 ng/mL (0.000-0.060)
[2019-06-28] MEDS ORDERED: OMEPRAZOLE CAP 20M PO (01:27)
[2019-06-28] MEDS ORDERED: PREDNISONE5 MG PO (01:27)
[2019-06-28] MEDS ORDERED: AMBIEN5 MG PO (01:28)
[2019-06-28] MEDS ORDERED: VALIUM 2 MG TAB2 MG PO (01:29)
--- NOTE | 2019-06-28 01:37 | NUR ---
RECEIVED FROM ER. PT IS A&OX4, IV-22G. L.HAND, HISTORY AND MEDS REVIEWED,PLACED ON TELEMTRY, BED IS LOW, SRX2, CALL LIGHT IN REACH, WILL CONTINUE PLAN OF CARE
[2019-06-28 02:03] VITALS: BP 149/70; BMI 25.1
[2019-06-28 04:00] VITALS: BP 125/46
[2019-06-28 08:00] VITALS: BP 126/73
[2019-06-28 09:22] VITALS: BP 129/74
--- NOTE | 2019-06-28 09:34 | NUR ---
STATED TO DIANNE MICHAEL THAT PT NEEDS HOME MEDS RESTARTED AND SHE VERBALIZED UNDERSTANDING.
--- NOTE | 2019-06-28 11:27 | NUR ---
I have reviewed this patient and I concur with the Shift Assessment completed by the Licensed Practical Nurse today this shift.
[2019-06-28 12:00] VITALS: BP 125/77
[2019-06-28 12:38] VITALS: Ht 152.4 cm; Wt 58.4 kg
[2019-06-28] MEDS ORDERED: CARDIZEM30 MG PO (12:39)
--- NOTE | 2019-06-28 12:49 | NUR ---
PT STATES SHE ONLY TAKES LIPITOR AND BUSPAR AT NIGHT. WILL CHANGE ON MED REC.
--- NOTE | 2019-06-28 12:53 | NUR ---
WILL NOT LET ME MAKE CORRECTIONS TO MED REC.
--- NOTE | 2019-06-28 15:27 | NUR ---
STATED TO DR. MCCULLOUGH PT'S D-DIMER WAS 0.73. HE STATES PT CAN GO HOME.
--- NOTE | 2019-06-28 16:08 | NUR ---
LEFT WRIST IV DC'D WITH CATH INTACT. TELEMETRY DC'D. DISCHRAGE INSTRUCTIONS GIVEN TO PT AND QUESTIONS ANSWERED. CHART COPY SIGNED. PT TAKEN DOWN VIA WC BY TWISTER TENDER AND LEFT WITH TWO GRANDDAUGHTERS AND SPOUSE IN PERSONAL CAR.
--- NOTE | 2019-07-01 08:26 | MORECARE ---
CASE MANAGEMENT DISCHARGE SUMMARY PATIENT: ORALIA SWEENEY UNIT: [id number] ADM DATE: 06/28/19 AGE: 83 : 34 SEX: F ROOM/BED: D.449 AUTHOR: NEERAJ CORRALES PHYSICIAN: REFERRING PHYSICIAN: MACO MCCULLOUGH MD DATE OF SERVICE: 07/01/19 Discharge Plan Patient Name: ORALIA SWEENEY [facility] [facility] 1935 Planned Disposition: Home Anticipated Discharge Date: 06/28/19 Discharge Date: 06/28/2019 Expected LOS: 1 Initial Reviewer: [email or web address] Initial Review Date: 07/01/2019 Generated: 07/01/19 9:25 am Patient Name: ORALIA SWEENEY Page 91668 at 0826 All edits/amendments must be made on the electronic document DICTATION DATE: 07/01/19824 SNOW FENCE ERECTOR: KRYSTYNA 07/01/19824 RPT#: [id number] DC DATE:06/28/19 STATUS: DIS IN [facility] [address] [facility] [place] [address] END OF REPORT
== END 2019-06-28 16:09 | disposition home or self-care (01) ==
LOC: D.ER 23:38 → OBSVTIME 06-28 00:28 → D.M2 06-28 00:28
PROVIDERS: Family Medicine; ADMIT Internal Medicine Nephrology; ATTEND Internal Medicine Nephrology
DX: I48.91 Unspecified atrial fibrillation (principal); E78.5 Hyperlipidemia, unspecified; I25.10 Atherosclerotic heart disease of native coronary artery without angina pectoris; J44.9 Chronic obstructive pulmonary disease, unspecified; F32.9 Major depressive disorder, single episode, unspecified; I31.3 Pericardial effusion (noninflammatory)

== ENCOUNTER 2020-02-15 05:02 | Emergency (ER) | payer MEDICARE, OTHER ==
[~2020-02-15] VITALS: Ht 152.4 cm; Wt 56.7 kg
[~2020-02-15 05:02] MED LIST changes: +CARDIZEM30 MG PO; +OMEPRAZOLE CAP 20M PO; +PREDNISONE5 MG PO; +VALIUM 2 MG TAB2 MG PO
[2020-02-15 05:06] VITALS: Ht 152.4 cm; Wt 56.7 kg
[2020-02-15] MEDS ORDERED: MOBIC7.5 MG (05:11)
[2020-02-15] MEDS ORDERED: HYDROCODON-ACE1 EA10 PO (05:25)
[2020-02-15 05:37] VITALS: BP 133/77
== END 2020-02-15 05:37 | disposition home or self-care (01) ==
LOC: D.ER 05:02
DX: M25.551 Pain in right hip (principal); I50.9 Heart failure, unspecified; I25.2 Old myocardial infarction; J44.9 Chronic obstructive pulmonary disease, unspecified

== ENCOUNTER 2020-02-17 21:09 | Emergency (ER) | payer MEDICARE, OTHER ==
[~2020-02-17] VITALS: Ht 152.4 cm; Wt 59.1 kg
[~2020-02-17 21:09] MED LIST changes: +HYDROCODON-ACE1 EA10 PO; +MOBIC7.5 MG
[2020-02-17 21:28] VITALS: Ht 152.4 cm; Wt 59.1 kg
[2020-02-17 22:02] LABS: BASOPHILS 0.4 % (0-2); EOSINOPHILS 2.1 % (0-7); HEMATOCRIT 38.6 % (36.0-48.0); HEMOGLOBIN 12.4 g/dL (12-16); IMMATURE GRANULOCYTES 0.3 % (0-5); LYMPHOCYTES 29.7 % (15-50); MCH 30.9 pg (26.0-34.0); MCHC 32.1 g/dL (31.0-37.0); MCV 96.3 fL (80.0-100.0); MEAN PLATELET VOLUME 9.6 fL (7.4-10.4); MONOCYTES 10.8 % (2-11); NEUTROPHILS 56.7 % (40-80); PLATELET COUNT 186 10x3/uL (130-400); RBC 4.01 10x6/uL (4.00-5.40); RDW 12.3 % (11.5-14.5); WBC 7.8 10x3/uL (4.8-10.8)
[2020-02-17 22:19] LABS: ANION GAP 9.6 mmol/L (8-16); CALCIUM 8.8 mg/dL (8.5-10.1); CARBON DIOXIDE 31.6 mmol/L (21.0-32.0); CREATININE - SERUM 0.9 mg/dL (0.6-1.3); POTASSIUM - SERUM 4.2 mmol/L (3.5-5.1)
[2020-02-17 22:24] LABS: ALBUMIN 3.4 g/dL (3.4-5.0); BILIRUBIN - TOTAL 0.38 mg/dL (0.2-1.3); PROTEIN - SERUM 6.1 g/dL (6.4-8.2)
[2020-02-18] MEDS ORDERED: STERAPRED DS 1010 MG PO (00:26)
[2020-02-18 01:14] VITALS: BP 148/77
== END 2020-02-18 01:05 | disposition home or self-care (01) ==
LOC: D.ER 21:09
PROVIDERS: Family Medicine
DX: M54.30 Sciatica, unspecified side (principal); M54.5 Low back pain; M54.16 Radiculopathy, lumbar region; I11.0 Hypertensive heart disease with heart failure; I50.9 Heart failure, unspecified; J44.9 Chronic obstructive pulmonary disease, unspecified

== ENCOUNTER → 2020-03-26 09:08 | Outpatient (CLI) | payer MEDICARE, OTHER ==
[2020-02-17 21:28] VITALS: BMI 25.4
[~2020-03-26 09:08] MED LIST changes: +STERAPRED DS 1010 MG PO
== END | disposition home or self-care (01) ==
LOC: D.HCCECHO 09:08
PROVIDERS: ATTEND Internal Medicine Cardiovascular Disease
DX: I31.3 Pericardial effusion (noninflammatory) (principal)

== ENCOUNTER → 2020-04-09 09:51 | Outpatient (CLI) | payer MEDICARE, OTHER ==
[2020-02-17 21:28] VITALS: BMI 25.4
[~2020-04-09 09:51] MED LIST changes: +BUSPAR10 MG PO; +NEURONTIN600 MG PO
== END | disposition home or self-care (01) ==
LOC: D.HCCARDIO 09:51
PROVIDERS: ATTEND Internal Medicine Cardiovascular Disease
DX: I25.10 Atherosclerotic heart disease of native coronary artery without angina pectoris (principal)

== ENCOUNTER 2020-04-13 17:10 | Inpatient (IN) | payer MEDICARE, OTHER ==
[~2020-04-13] VITALS: Ht 152.4 cm; Wt 57.5 kg
--- NOTE | ~2020-04-13 | HEMODYNAMI ---
PATIENT:ORALIA SWEENEY MEDICAL RECORD: [id number] : 33 LOCATION:[facility] D.2116 ADMISSION DATE: 04/13/20 Generatedon:04/14/202011:21 Patient name: ORALIA SWEENEY Patient #: [id number] : 1935 Date of study: 04/14/2020 Page: Of Hemodynamic Procedure Report Patient Data Patient Demographics Procedure consent was obtained First Name: ORALIA Gender: Female Last Name: PATEL : 1935 Middle Initial: LETICIA Age: 84 year(s) Patient #: [id number] Race: SSN: [id number] Additional ID: [id number] Contact details Address: [address] [place] [address] 24a State: [place] [facility] [place] code: [address] Past Medical History Allergies Allergen Reaction Date Comments Reported Adhesive tape 01/28/2018 Natural rubber 01/28/2018 and latex Other allergy 04/14/2020 TAPE/ADHESIVE Admission Admission Data Admission Date: 04/13/2020 Admission Time: 18:30 Arrival Date: 04/14/2020 Arrival Time: 0:00 Room #: [facility] Height (in.): 60 BSA: 1.54 (m2) Height (cm.): 152.4 BMI: 24.8 (kg/m2) Weight (lbs.): 127 Weight (kg.): 57.61 Lab Results Lab Result Date: 04/14/2020 Lab Result Time: 0:00 Biochemistry Name Units Result Min Max BUN mg/dl 17 --(---*)-- 7 18 CK-MB ng/ml 1.1 --(-*--)-- 0 3.6 Creatinine mg/dl 0.7 --(*---)-- 0.6 1.3 Creatinine l 134 --(--*-)-- 21 215 Kinase eGFR ml/min 84 -*(----)-- 90 120 NONAFRICAN Troponin l ng/ml 0.017 --(-*--)-- 0 0.06 CBC Name Units Result Min Max Hematocrit % 37 *-(----)-- 42 54 Hemoglobin g/dl 12.1 *-(----)-- 13.5 17.5 Procedure Procedure Types Cath Procedure Diagnostic Procedure LHC LH w/Coronaries FFR/IVUS FFR Initial Sedation Charges Moderate Sedation up to 45 minutes PCI Procedure Coronary Stent Coronary Stent Initial Hemochron ACT Test Procedure Description Procedure Date Procedure Date: 04/14/2020 Procedure Start Time: 10:44 Procedure End Time: 11:05 Procedure Staff Name Function Rober Arnold MD Performing Physician Cassi Puente RT Monitor Graciela Odom RT Scrub Eliz Isaac RN Nurse Procedure Data Cath Procedure Fluoroscopy Diagnostic fluoroscopy Total fluoroscopy Time: 3.2 time: 3.2 min min Diagnostic fluoroscopy Total fluoroscopy dose: 414 dose: 414 mGy mGy Contrast Material Contrast Material Type Amount (ml) Isovue 300 70 Entry Location Entry Primary Successful Side Size Upsize Upsize Entry Closure Succes sful Closure Location (Fr) 1 (Fr) 2 (Fr) Remarks Device Remarks Femoral Right 5 Fr 6 Fr Exoseal artery Short Estimated blood loss: 10 ml Diagnostic catheters Device Type Used For End Catheter Placement MULTIPACK JL 4.0 5Fr Procedure catheter MULTIPACK 3DRC 5Fr Procedure catheter MULTIPACK Pigtail 5 Fr Ventriculography catheter Procedure Complications No complications Procedure Medications Medication Administration Route Dosage 0.9% NaCl I.V. 100 ml/hr Oxygen etCO2 Nasal cannula 2 l/min Lidocaine 2% added to field 20 Heparin Flush Bag added to field 2 bags (1000units/500ml NS) Versed I.V. 2 mg Fentanyl I.V. 50 mcg Heparin Bolus I.V. 2000 units Heparin Bolus I.V. 3000 units Integrilin (Bolus I.V. 5 ml 2mg/ml) Integrilin (Bolus wasted 5 ml 2mg/ml) Plavix P.O. 600 mg Versed I.V. 2 mg Fentanyl I.V. 50 mcg Hemodynamics Rest BSA: 1.54 (m2) HGB: 12.1 (g/dl) O2 Consumption: Estimated: 137.38 (ml/min) O2 Co nsumption indexed: Estimated:89.21 (ml/min/m) Heart Rate: 71 (bpm) Pressure Samples Time Site Value (mmHg) Purpose Heart Use Rate(bpm) 10:49 LV 116/9,12 Snapshot 64 10:50 LV 113/9,14 Pullback 64 10:50 AO 130/51(86) Pullback 64 Gradients Valve Time Site 1 Site 2 Mean SEP/DFP Peak To Heart Use (mmHg) (sec/min) Peak Rate (mmHg) (bpm) Aortic 10:50 LV AO 0 64 113/9,14 130/51(86) Calculations Valve P-P Mean Valve Index Valve Source Name Gradient Area Flow (cm2) Aortic 0 0 Snapshots Pre Cath Intra NCS Post Cath Vital Signs Time Heart Resp SPO2 etCO2 NIBP (mmHg) Rhythm Pain Sedation Rate (ipm) (%) (mmHg) Status Level (bpm) 10:17:01 71 16 95 33.7 175/83(137) NSR 0 (11) 10(A) , No pain 10:21:21 70 18 98 32.9 151/84(139) NSR 0 (11) 10(A) , No pain 10:25:35 65 11 97 41.2 132/66(90) NSR 0 (11) 10(A) , No pain 10:29:55 64 11 98 34.4 122/61(96) NSR 0 (11) 10(A) , No pain 10:34:09 66 10 99 41.2 130/69(103) NSR 0 (11) 10(A) , No pain 10:38:25 68 11 98 38.2 136/62(98) NSR 0 (11) 10(A) , No pain 10:42:43 67 10 98 19.4 116/62(96) NSR 0 (11) 10(A) , No pain 10:46:55 63 13 100 11.9 111/61(88) NSR 0 (11) 10(A) , No pain 10:51:07 63 13 100 11.9 117/60(95) NSR 0 (11) 10(A) , No pain 10:55:21 65 13 100 15.7 118/60(93) NSR 0 (11) 10(A) , No pain 10:59:33 65 12 100 38.2 133/68(108) NSR 0 (11) 10(A) , No pain 11:03:49 65 13 99 31.4 134/71(123) NSR 0 (11) 10(A) , No pain Medications Time Medication Route Dose Verified Delivered Reason Notes Effectiveness by by 10:15:50 0.9% NaCl I.V. 100 Rober Eliz used for ml/hr Clayton Poncho procedure MD SHAFER 10:15:56 Oxygen etCO2 2 Rober Eliz used for Nasal l/min Clayton Poncho procedure cannula MD SHAFER 10:16:00 Lidocaine 2% added 20ml Rober Richter for local to vial [facility] anesthetic field MD FRANCIS 10:16:05 Heparin Flush added 2 Rober Rober used for Bag to bags [facility] procedure (1000units/500ml field MD FRANCIS NS) 10:40:40 Versed I.V. 2 mg Rober Eliz for sedation St Jame Isaac MD RN 10:40:48 Fentanyl I.V. 50 Rober Eliz for sedation mcg St Jame Isaac MD, RN 10:48:24 Versed I.V. 2 mg Rober Eliz for sedation St Jame Isaac MD, RN 10:48:32 Fentanyl I.V. 50 Rober Eliz for sedation mcg St Jame Isaac MD RN 10:52:53 Heparin Bolus I.V. 2000 Rober Eliz for verif ied units [facility] Jame Isaca anticoagulation with Dr. FRANCIS RN Berkey 11:00:53 Heparin Bolus I.V. 3000 [address] for units [facility] Jame Isaac anticoagulation MD SHAFER 11:01:00 Integrilin I.V. 5 ml Rober Eliz for (Bolus 2mg/ml) St Jame Isaac antiplatelet RN therapy 11:01:10 Integrilin wasted 5 ml Rober Eliz for (Bolus 2mg/ml) St Jame Isaac antiplatelet RN therapy 11:01:12 Plavix P.O. 600 [address] for mg [facility] Jame Isaac antiplatelet RN therapy Procedure Log Time Note 10:02:22 Procedure Status Urgent Heart Cath (IP). 10:02:25 Cassi FARR(R) sent for patient. Start room use. 10:02:28 Time tracking: Regular hours (M-F 7:00 - 5:00) 10:02:35 Plan of Care:Hemodynamics will remain stable., Cardiac rhythm will remain stable., Comfort level will be maintained., Respiratory function will remain adequate., Patient/ family verbilizes understanding of procedure., Procedure tolerated without complication., Recovers from procedure without complications.. 10:04:15 Patient allergic to Other allergyTAPE/ADHESIVE 10:04:34 Informed consent obtained and on chart 10:04:43 Arrival Date: 04/14/2020 12:00:00 AM 10:04:56 Patient Height : 60 inches 10:05:03 Patient Weight : 127 lbs 10::31 Lab Result : eGFR NONAFRICAN 84 ml/min :: Lab Result : Troponin l 0.017 ng/ml 10:: Lab Result : Hematocrit 37 % :: Lab Result : Hemoglobin 12.1 g/dl :: Lab Result : Creatinine 0.7 mg/dl :: Lab Result : BUN 17 mg/dl :: Lab Result : Creatinine Kinase 134 l 10:: Lab Result : CK-MB 1.1 ng/ml 10:08:35 Patient received from Med II to CCL 1 Alert and oriented. Tansferred to table in Supine position. 10:08:38 Warm blankets applied, and mandy hugger turned on for patient comfort. 10:08:39 Correct patient and procedure confirmed by team. 10:08:40 ECG and BP/O2 sat monitors applied to patient. 10:15:43 Vital chart was started 10:15:50 0.9% NaCl 100 ml/hr I.V. was administered by Eliz Isaac RN; used for procedure; Verbal order read back and verified. 10:15:56 Oxygen 2 l/min etCO2 Nasal cannula was administered by Eliz Isaac RN; used for procedure; Verbal order read back and verified. 10:16:00 Lidocaine 2% 20ml vial added to field was administered by Rober Arnold MD; for local anesthetic; Verbal order read back and verified. 10:16:05 Heparin Flush Bag (1000units/500ml NS) 2 bags added to field was administered by Rober Arnold MD; used for procedure; Verbal order read back and verified. 10:17:40 Baseline sample Acquired. 10:17:44 Rhythm: sinus rhythm 10:17:50 Full Disclosure recording started 10:18:05 H&P Date Dictated: 04/13/2020 Within 30 days and on chart., H&P Addendum completed by physician on day of procedure. (MUST COMPLETE FOR ALL OUTPATIENTS). 10:18:07 Pre-procedure instructions explained to patient. 10:18:10 Family in waiting room. 10:18:12 Patient NPO since Midnight. 10:18:15 Is the patient allergic to Iodine/contrast media? No. 10:18:19 Was the patient premedicated? Yes 10:18:21 Is patient on blood thinner?No 10:18:23 Patient diabetic? No. 10:18:27 Previous problem with sedation/anesthesia? No ? 10:18:29 Snore? Yes 10:18:30 Sleep apnea? Yes 10:18:37 Dentures? No ? 10:18:41 Patient pain scale 0/10 ?. 10:18:49 IV patent on arrival in left antecubital with 0.9% NaCl at [facility]. 10:18:52 Lab results completed and on chart. 10:18:58 Right groin area was prepped with chlora-prep and draped in sterile fashion 10:18:59 Alarms reviewed by R. N. 10:19:00 Sharps counted by scrub and verified by R.N. 10:19:04 Physician arrived 10:19:14 Right groin site verified by team. 10:19:18 Fire Safety Assessment: A--An alcohol-based skin anteseptic being used preoperatively., C--Open oxygen or nitrous oxide is being used., D--An ESU, laser, or fiber-optic light is being used. 10:19:28 2) 60-89 Mildly reduced kidney function, and other findings (as for stage 1) point to kidney disease. 10:19:34 Physical assessment completed. ASA score P 2 - A patient with mild systemic disease as per Rober Arnold MD. 10:20:47 Maximum allowable contrast dose (3.7 X eGFR X 0.75)233 ml. 10:20:51 Sedation plan: IV Moderate Sedation Medication:Versed, Fentanyl 10:20:54 Use device set Femoral Dx 10:26:35 Zero performed for pressure channel P1 10:39:07 Physician arrived 10:39:08 --------ALL STOP TIME OUT------ 10:39:09 Final Timeout: patient, procedure, and site verified with staff and physician. All members of the team are in agreement. 10:40:40 Versed 2 mg I.V. was administered by Eliz Isaac RN; for sedation; Verbal order read back and verified. 10:40:48 Fentanyl 50 mcg I.V. was administered by Eliz Isaac RN; for sedation; Verbal order read back and verified. 10:44:19 Procedure started. 10:44:44 Local anesthetic to right femoral artery with Lidocaine 2% by Rober Arnold MD.INITIAL ACCESS ONLY 10:44:53 A 5 Fr sheath was inserted into the Right Femoral artery 10:45:12 j wire advanced. 10:45:17 Bag Decanter (2002S) opened to sterile field. 10:45:17 ACIST Syringe (51861) opened to sterile field. 10:45:18 Medline Cath Pack ([id number]) opened to sterile field. 10:45:19 ACIST Manifold (47134) opened to sterile field. 10:45:19 ACIST Hand Control (03870) opened to sterile field. 10:45:20 Tegaderm 4 x 4 (1626W) opened to sterile field. 10:45:20 DIAGNOSTIC Multipack 5Fr catheter set (BQ2191) opened to sterile field. 10:45:22 EMERALD Guide Wire (490-649) opened to sterile field. 10:45:22 SHEATH 5FR Savanna (UPE091) opened to sterile field. 10:45:31 A MULTIPACK JL 4.0 5Fr catheter was advanced over the wire and used for Procedure. 10:45:37 LCA angiography performed. 10:47:06 Catheter removed. 10:47:15 A MULTIPACK 3DRC 5Fr catheter was advanced over the wire and used for Procedure. 10:47:20 RCA angiography performed. 10:48:24 Versed 2 mg I.V. was administered by Eliz Isaac RN; for sedation; Verbal order read back and verified. 10:48:28 Catheter removed. 10:48:32 Fentanyl 50 mcg I.V. was administered by Eliz Isaac RN; for sedation; Verbal order read back and verified. 10:48:38 A MULTIPACK Pigtail 5 Fr catheter was advanced over the wire and used for Ventriculography. 10:48:44 LV gram done using JACOB 10:50:32 EF : 55 % 10:51:05 INFLATOR Merit Annapak (WM7595) opened to sterile field. 10:51:06 SHEATH 6FR Savanna (CZR875) opened to sterile field. 10:51:07 [place] Verrata Plus pressure wire (66241S) opened to sterile field. 10:51:10 GUIDE 6FR JL 4.0 catheter (QL5ND56) opened to sterile field. 10:51:19 Catheter removed. 10:51:20 Proceeding to intervention. 10:51:28 Sheath upsized to a 6 Fr Short. 10:51:38 6 Fr JL4 guide catheter was inserted over the wire 10:52:53 Heparin Bolus 2000 units I.V. was administered by Eliz Isaac RN; for anticoagulation; verified with Dr. Mcbride Verbal order read back and verified. 10:53:35 FFR/IFR wire advanced. 10:55:59 Wire advanced across lesion. 10:58:45 Baseline FFR .80. 11:00:53 Heparin Bolus 3000 units I.V. was administered by Eliz Isaac RN; for anticoagulation; Verbal order read back and verified. 11:01:00 Integrilin (Bolus 2mg/ml) 5 ml I.V. was administered by Eliz Isaac RN; for antiplatelet therapy; Verbal order read back and verified. 11:01:10 Integrilin (Bolus 2mg/ml) 5 ml wasted was administered by Eliz Isaac RN; for antiplatelet therapy; Verbal order read back and verified. 11:01:12 Plavix 600 mg P.O. was administered by Eliz Isaac RN; for antiplatelet therapy; Verbal order read back and verified. 11:01:32 Place stent Inflation Number: 1 A ANIBAL RX 3.5 x 15 stent ([id number]) was prepped and advanced across the Prox LAD 80. The stent was deployed at 14 CELIA for 0:29 (min:sec) . 11:02:08 Stent catheter was removed intact over wire. 11:02:09 Guide catheter removed. 11:02:09 Wire removed. 11:02:17 EXOSEAL 6Fr (EX600) opened to sterile field. 11:02:29 Sheath removed intact; hemostasis achieved with Exoseal to the Right Femoral artery. 11:02:32 Procedure ended.(Physican Out) 11:02:56 Fluoroscopy time 03.20 minutes. 11:03:03 Fluoroscopy dose: 414 mGy 11:03:03 Flurop Dose total: 414 11:03:07 Dose Area Product 32397 mGy/cm. 11:03:11 Contrast amount:Isovue 300 70ml. 11:03:14 Maximum allowable dose exceeded? No. 11:03:19 Insertion/operative site no bleeding no hematoma. 11:03:22 Post-op/insertion site Right Femoral artery dressed using a 4 x 4 and Tegaderm. 11:03:25 Post Procedure Pulses reassessed and unchanged 11:03:29 Post-procedure physical assessment completed. ASA score P 3 - A patient with severe systemic disease as per Rober Arnold MD. 11:03:33 Post procedure rhythm: unchanged. 11:03:36 Estimated blood loss: 10 ml 11:03:41 Post procedure instruction explained to patient.Patient verbalizes understanding. 11:04:08 Procedure type changed to Cath procedure, Diagnostic procedure, LHC, [facility] w/Coronaries, FFR/IVUS, FFR Initial, Sedation Charges, Moderate Sedation up to 45 minutes, PCI procedure, Coronary Stent, Coronary Stent Initial, Hemochron ACT Test 11:04:09 Procedure and supply charges have been captured, reviewed, submitted and are correct. 11:05:23 Procedure Complication : No complications 11:05:29 Vital chart was stopped 11:05:33 [facility] Findings: MVD- PCI performed (see procedure note) 11:05:40 Report given to [facility] II. 11:05:45 Patient transfered to [facility] II with Bed. 11:05:48 ACT drawn and resulted at 201 seconds. (normal therapeutic range 180-240 seconds). 11:05:55 Full Disclosure recording stopped 11:05:55 Procedure ended. 11:05:58 End room use (Document Last) 11:06:04 ACC-PCI Only Patient was given prescriptions, or instructed by Rober Arnold MD to start/continue the following medications upon discharge: Plavix Intervention Summary Intervention Notes Time ActionType Lesion and Equipment Used Action# Pressure Duration Attributes 11:01:32 Place stent Prox LAD ANIBAL RX 3.5 x 1 14 00:29 15 stent ([id number]) Device Usage Item Name Manufacture Quantity Catalog Hospital Part Current Minimal Lot# / Number Charge Number Stock Stock Serial# Code ACIST Syringe Acist 1 95405 382577 867995 183278 20 (71317) Medical Systems Inc Bag Decanter Microtek 1 667035 08938 765997 5 () Medical Inc. Medline Cath Medline 1 [id number] 644142 53830 349498 5 Pack ([id number]) ACIST Hand Acist 1 18140 149054 181188 320943 5 Control Medical (78383) Systems Inc ACIST Manifold Acist 1 82153 921337 794911 488996 5 (11913) Medical Systems Inc DIAGNOSTIC Cardinal 1 [id number] 500979 57310 384422 30 Multipack 5Fr Health catheter set (VW5762) Tegaderm 4 x 4 3M 1 1626W 765575 821416 871580 5 (1626W) SHEATH 5FR Terumo 1 ZCQ006 718686 639241 253487 5 Savanna (BFI403) EMERALD Guide Cardinal 1 502-455 393647 058470 822505 5 Wire (502-455) [facility] MULTIPACK JL Cardinal 1 528457 5 4.0 5Fr Health catheter MULTIPACK 3DRC Cardinal 1 997100 5 5Fr catheter Health MULTIPACK Cardinal 1 671434 5 Pigtail 5 Fr Health catheter INFLATOR Merit Merit 1 [id number] 402424 161876 918740 15 BasixTwistle Medical (PE6764) SHEATH 6FR Terumo 1 AED481 722214 081835 607638 40 Savanna (XOJ201) [place] 1 11784Z 612750 [id number] 252136 5 Verrata Plus pressure wire (74821R) GUIDE 6FR JL Medtronic 1 [id number] 568283 59999 512966 1 4.0 catheter (FW9YM14) ANIBAL RX 3.5 x Medtronic 1 [id number] 482522 4724169 022365 5 [id number] 15 stent ([id number]) EXOSEAL 6Fr Cardinal 1 EX600 419166 480349 451848 10 (EX600) Health Signature Audit Gove Stage Time Signature Unsigned Intra-Procedure 04/14/2020 Cassi Puente 11:08:23 AM RT(R) Intra-Procedure 04/14/2020 Eliz Isaac 11:08:40 AM RN Intra-Procedure 04/14/2020 Rober Arnold MD 11:09:02 AM Jame FRANCIS 04/14/2020 11:18:30 AM Intra-Procedure 04/14/2020 Rober Cevallos 11:21:30 AM Jame FRANCIS [place] [id number] [place] [address]
[~2020-04-13 17:10] MED LIST changes: -BUSPAR10 MG PO; -NEURONTIN600 MG PO
[2020-04-13 18:00] VITALS: BP 192/100
[2020-04-13 18:14] LABS: APTT 26.8 SECONDS (22.8-39.4); INR 0.93 (0.85-1.17); PROTIME 12.4 SECONDS (11.6-15.0)
[2020-04-13 18:16] LABS: CALC OSMOLALITY 288 mosm/kg (275-300); CARBON DIOXIDE 27.3 mmol/L (21.0-32.0); CHLORIDE - SERUM 108 mmol/L (98-107); GLUCOSE 113 mg/dL (74-106); POTASSIUM - SERUM 4.6 mmol/L (3.5-5.1); SODIUM 143 mmol/L (136-145); UREA NITROGEN 21 mg/dL (7-18); eGFR NON AFRICAN AMERICAN 56 mL/min (90-120)
[2020-04-13 18:17] LABS: BASOPHILS 0.1 % (0-2); EOSINOPHILS 0.1 % (0-7); HEMATOCRIT 39.8 % (36.0-48.0); IMMATURE GRANULOCYTES 0.4 % (0-5); LYMPHOCYTES 15.4 % (15-50); MCH 31.2 pg (26.0-34.0); MCHC 32.7 g/dL (31.0-37.0); MCV 95.4 fL (80.0-100.0); MONOCYTES 7.2 % (2-11); NEUTROPHILS 76.8 % (40-80); PLATELET COUNT 245 10x3/uL (130-400); RBC 4.17 10x6/uL (4.00-5.40); RDW 12.8 % (11.5-14.5); WBC 10.7 10x3/uL (4.8-10.8)
[2020-04-13 18:33] LABS: ALBUMIN 3.6 g/dL (3.4-5.0); ALKALINE PHOSPHATASE 69 U/L (30-120); ALT (SGPT) 22 U/L (10-68); BILIRUBIN - TOTAL 0.29 mg/dL (0.2-1.3); CKMB 1.9 U/L (0.0-3.6); CREATINE KINASE 239 UL (21-215); MAGNESIUM - SERUM 2.1 mg/dL (1.8-2.4); PROTEIN - SERUM 6.5 g/dL (6.4-8.2)
[2020-04-13 18:34] LABS: TROPONIN-I < 0.017 ng/mL (0.000-0.060)
[2020-04-13 18:45] VITALS: BP 192/95
[2020-04-13 18:57] VITALS: BP 167/77
--- NOTE | 2020-04-13 19:11 | NUR ---
REPORT TO JOESPH SHAFER
[2020-04-13] MEDS ORDERED: BUSPAR10 MG PO (20:22)
[2020-04-13] MEDS ORDERED: NEURONTIN600 MG PO (20:25)
[2020-04-13] MEDS ORDERED: OMEPRAZOLE20 M1 PO (20:27)
--- NOTE | 2020-04-13 21:13 | NUR ---
PER PATIENT REQUEST. CALLED [facility], REGARDING PATIENT AMBIEN. NO NEW ORDERS GIVEN.
[2020-04-13 22:59] VITALS: Ht 152.4 cm; Wt 57.5 kg
[2020-04-14 00:39] VITALS: BP 173/83
[2020-04-14 00:44] VITALS: BP 118/58
--- NOTE | 2020-04-14 01:01 | NUR ---
PATIENT RESTING COMFORTABLY IN BED. RESPIRATIONS ARE EVEN AND UNLABORED. NO S/S OF DISTRESS. NO C/O PAIN. CALL LIGHT WITHIN REACH. WILL CPOC.
[2020-04-14 01:14] LABS: CKMB 1.1 U/L (0.0-3.6); CREATINE KINASE 174 UL (21-215); TROPONIN-I 0.023 ng/mL (0.000-0.060)
--- NOTE | 2020-04-14 03:31 | NUR ---
PATIENT RESTING COMFORTABLY IN BED. RESPIRATIONS ARE EVEN AND UNLABORED. NO S/S OF DISTRESS. NO C/O PAIN. CALL LIGHT WITHIN REACH. WILL CPOC.
[2020-04-14 05:13] VITALS: BP 103/56
[2020-04-14 07:00] LABS: ALBUMIN 3.2 g/dL (3.4-5.0); ALKALINE PHOSPHATASE 59 U/L (30-120); ALT (SGPT) 20 U/L (10-68); BILIRUBIN - TOTAL 0.51 mg/dL (0.2-1.3); CALC OSMOLALITY 290 mosm/kg (275-300); CALCIUM 8.8 mg/dL (8.5-10.1); CARBON DIOXIDE 25.4 mmol/L (21.0-32.0); CHLORIDE - SERUM 110 mmol/L (98-107); CKMB 1.1 U/L (0.0-3.6); CREATINE KINASE 134 UL (21-215); GLUCOSE 94 mg/dL (74-106); MAGNESIUM - SERUM 2.2 mg/dL (1.8-2.4); PHOSPHOROUS 3.8 mg/dL (2.5-4.9); POTASSIUM - SERUM 4.2 mmol/L (3.5-5.1); PRO BNP 365 pg/mL (0-450); PROTEIN - SERUM 5.8 g/dL (6.4-8.2); SODIUM 145 mmol/L (136-145); UREA NITROGEN 17 mg/dL (7-18)
[2020-04-14 07:08] LABS: CREATININE - SERUM 0.7 mg/dL (0.6-1.3); TROPONIN-I < 0.017 ng/mL (0.000-0.060); eGFR NON AFRICAN AMERICAN 84 mL/min (90-120)
[2020-04-14 07:12] LABS: BASOPHILS 0.1 % (0-2); EOSINOPHILS 0.3 % (0-7); HEMOGLOBIN 12.1 g/dL (12-16); IMMATURE GRANULOCYTES 0.3 % (0-5); MCHC 32.7 g/dL (31.0-37.0); MCV 94.9 fL (80.0-100.0); MEAN PLATELET VOLUME 10.1 fL (7.4-10.4); MONOCYTES 9.3 % (2-11); PLATELET COUNT 248 10x3/uL (130-400); RDW 13.2 % (11.5-14.5); WBC 9.2 10x3/uL (4.8-10.8)
[2020-04-14 08:39] LABS: CHOL - HDL RATIO 2.4 ratio (2.3-4.1); LDL-HDL RATIO 1.1 ratio (1.5-3.5)
[2020-04-14 08:59] VITALS: BP 134/61
--- NOTE | 2020-04-14 10:07 | NUR ---
PRE-OPS GIVEN. TO BACK UP SCAN COORDINATOR BY BED.
--- NOTE | 2020-04-14 11:38 | NUR ---
BACK FROM BUTTON SEWER HAND. VS WNL. RIGHT GROIN STABLE WITHOUT BLEEDING OR HEMATOMA NOTED. WILL MMONITOR.
--- NOTE | 2020-04-14 15:31 | NUR ---
BED REST UP. GROIN STABLE.
[2020-04-14 20:00] VITALS: BP 129/74
[2020-04-15] VITALS: BP 147/81
[2020-04-15 04:00] VITALS: BP 133/70
[2020-04-15 06:49] LABS: BASOPHILS 0.2 % (0-2); EOSINOPHILS 0.9 % (0-7); HEMATOCRIT 37.1 % (36.0-48.0); HEMOGLOBIN 12.2 g/dL (12-16); IMMATURE GRANULOCYTES 0.2 % (0-5); LYMPHOCYTES 13.2 % (15-50); MCH 31.2 pg (26.0-34.0); MCHC 32.9 g/dL (31.0-37.0); MCV 94.9 fL (80.0-100.0); MEAN PLATELET VOLUME 9.6 fL (7.4-10.4); MONOCYTES 11.4 % (2-11); NEUTROPHILS 74.1 % (40-80); RBC 3.91 10x6/uL (4.00-5.40); RDW 13.1 % (11.5-14.5)
[2020-04-15 06:54] LABS: PLATELET COUNT 197 10x3/uL (130-400)
[2020-04-15 07:06] LABS: ANION GAP 9.9 mmol/L (8-16); CALCIUM 8.5 mg/dL (8.5-10.1); CARBON DIOXIDE 27.3 mmol/L (21.0-32.0); MAGNESIUM - SERUM 2.1 mg/dL (1.8-2.4); PHOSPHOROUS 3.9 mg/dL (2.5-4.9); POTASSIUM - SERUM 4.2 mmol/L (3.5-5.1)
[2020-04-15 07:09] LABS: CREATININE - SERUM 0.9 mg/dL (0.6-1.3)
[2020-04-15 08:00] VITALS: BP 135/61
[2020-04-15 11:00] VITALS: BP 124/64
[2020-04-15] MEDS ORDERED: ALDACTONE25 MG PO (14:10)
[2020-04-15] MEDS ORDERED: BAYER CHEWABLE81 MG PO (15:14)
[2020-04-15] MEDS ORDERED: PLAVIX75 MG PO (15:24)
--- NOTE | 2020-04-15 15:26 | OP ---
PATIENT NAME: ORALIA SWEENEY MEDICAL RECORD: [id number] :33 LOCATION:D.M2 D.2116 ADMISSION DATE:04/13/20 SURGEON: BEE LEE MD DATE OF OPERATION: 04/14/2020 PROCEDURE: Left heart catheterization, selective coronary angiography, plus IFR to LAD plus ADMEASURER stenting of the LAD, right femoral artery approach. CATHETERS: A 5-Georgian sheath, 5/4 left and right Hieu, 5/4 pig. The procedure was well tolerated. The patient was returned to the abreu. Sheath removed. ExoSeal device was placed. FINDINGS: Left ventriculography 30-degree JACOB view: Normal wall motion, normal systolic function. CORONARY ANATOMY: LEFT MAIN: Left main has short vessel. LAD: LAD has just proximal stent has about 80% stenosis. This confirmed with IFR wire of 0.80. 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 RIGHT CORONARY ARTERY: Dominant artery, previously placed stent is widely patent. No evidence of restenosis. No progression of [place] disease. PLAN: Intervention to LAD momentarily. DESCRIPTION OF PROCEDURE: A 5-Georgian sheath was exchanged for a 6-Georgian sheath. A JL4 guiding catheter provided excellent guide catheter support. We actually used the indwelling IFR wire. Stent deployed was a 3.5 x 15 mm Lookout drug-eluting stent up to 14 atmospheres for 45 seconds. Final angiography shows excellent resolution of 80% stenosis, no significant residual. CHRIS flow was 3 throughout the procedure. Heparin and Integrilin were used during the case. Sheath was closed with ExoSeal device. Plavix was loaded in the lab. TRANSINT:[id number] Voice Confirmation ID: [id number] DOCUMENT ID: [id number] BEE LEE MD at 1526 CC: [id number] DICTATION DATE: 04/14/20 1139 NURSE NAVIGATOR: 04/14/20 1319 [place] [address]
--- NOTE | 2020-04-15 15:35 | MORECARE ---
CASE MANAGEMENT DISCHARGE SUMMARY PATIENT: ORALIA SWEENEY UNIT: [id number] ADM DATE: 04/13/20 AGE: 84 : 34 SEX: F ROOM/BED: D.2116 AUTHOR: NEERAJ CORRALES PHYSICIAN: REFERRING PHYSICIAN: ARTHUR BLISS MD DATE OF SERVICE: 04/15/20 Discharge Plan Patient Name: ORALIA SWEENEY [facility] [facility] 1935 Planned Disposition: Home Anticipated Discharge Date: 04/15/20 Discharge Date: Expected LOS: 2 Initial Reviewer: [email or web address] Initial Review Date: 04/13/2020 Generated: 04/15/20 4:34 pm DCPIA - Discharge Planning Initial Assessment Updated by [email or web address]: Marlen Polk on 04/15/20 3:34 pm * Is the patient Alert and Oriented? Yes * How many steps to enter\exit or inside your home? * PCP Dr. Hwang * Pharmacy [facility] * Preadmission Environment Home with Family * ADLs Independent * Equipment Cane Nebulizer Oxygen Rolling Walker * Other Equipment NA * List name and contact numbers for known caregivers / representatives who currently or will assist patient after discharge: Arash Sweeney (son) [phone] Paul De Dios (friend) [phone] * Verbal permission to speak to the caregivers and representatives has been obtained from the patient. N/A * Community resources currently utilized None * Please name any agencies selected above. NA * Additional services required to return to the preadmission environment? No * Can the patient safely return to the preadmission environment? Yes * Has this patient been hospitalized within the prior 30 days at any hospital? No Patient Name: ORALIA SWEENEY Page [id number] at 1535 All edits/amendments must be made on the electronic document DICTATION DATE: 04/15/201533 TIRE CHANGER AIRCRAFT: KRYSTYNA 04/15/201533 RPT#: [id number] DC DATE: STATUS: ADM IN [facility] [address] [place] [address] END OF REPORT
--- NOTE | 2020-04-15 15:38 | NUR ---
IV AND TELEMETRY DCD. DC PLANS GIVEN. UNDERSTANDING VOICED. ESCORTED TO CAR BY W/C.
--- NOTE | 2020-04-15 15:43 | MORECARE ---
CASE MANAGEMENT DISCHARGE SUMMARY PATIENT: ORALIA SWEENEY UNIT: [id number] ADM DATE: 04/13/20 AGE: 84 : 33 SEX: F ROOM/BED: D.2976 AUTHOR: ANTONI,DOC PHYSICIAN: REFERRING PHYSICIAN: ARTHUR BLISS MD DATE OF SERVICE: 04/15/20 Discharge Plan Patient Name: ORALIA SWEENEY Facility: [facility]:[place] : 1935 Planned Disposition: Home Anticipated Discharge Date: 04/15/20 Discharge Date: 04/15/2020 Expected LOS: 2 Initial Reviewer: [email or web address] Initial Review Date: 04/13/2020 Generated: 04/15/20 4:42 pm Comments DCP- Discharge Planning Updated by [email or web address]: Marlen Polk on 04/15/20 2:[address] CM met with patient to discuss initial discharge planning. Patient is in agreement to proceed with the assessment. Patient reports that she lives at home independently with her friend. Patient is alert/oriented. Stairs/steps: 0. PCP: Dr. Hwang. [facility]acy[facility]. Patient states she has been able to obtain all of her prescribed medications. HHS: Declines. DME: Walker, 2 canes, Nebulizer, Home 02. Emergency contact: Luís Sweeney (son) [phone], Paul De Dios (friend) [phone]. Patient is Independent with all ADL's, medication management [facility]. CM discussed the availability of HH, Rehab, SNF, OP Therapy, DME services. Patient denies the need for additional services at this time and feels safe returning to previous environment. Patient denies hospitalization within the past 30 days. Patient denies the use of community resources [facility]. Transportation at time of discharge: Son, Luís Sweeney. DCPIA - Discharge Planning Initial Assessment Updated by [email or web address]: Marlen Polk on 04/15/20 3:34 pm * Is the patient Alert and Oriented? Yes * How many steps to enter\exit or inside your home? * PCP Dr. Hwang * Pharmacy [facility] * Preadmission Environment Home with Family * ADLs Independent * Equipment Cane Nebulizer Oxygen Rolling Walker * Other Equipment NA * List name and contact numbers for known caregivers / representatives who currently or will assist patient after discharge: Arash Sweeney (son) [phone] Paul De Dios (friend) [phone] * Verbal permission to speak to the caregivers and representatives has been obtained from the patient. N/A * Community resources currently utilized None * Please name any agencies selected above. NA * Additional services required to return to the preadmission environment? No * Can the patient safely return to the preadmission environment? Yes * Has this patient been hospitalized within the prior 30 days at any hospital? No Coverage Notice Reviewer: [id number] Rosa Polk Notice Issued Date-Time: 04/15/2020 15:39 Notice Type: IM Discharge Notice Notice Delivered To: Patient Relationship to Patient: Self Training And Development Professional Name: Oralia Sweeney Delivery Method: HAND - Hand Delivered [place] Days: Prior Verbal Notification: Recipient Understood Notice: Yes Recipient Signature: Yes Med Rec Note Co-signed by Attending: Coverage Notice Comment: DC IMM signed. Original to chart. Patient declines her copy. Last DP export: 04/15/20 2:35 p Patient Name: ORALIA SWEENEY Page [id number] at 1543 All edits/amendments must be made on the electronic document DICTATION DATE: 04/15/201541 REFINERY OPERATOR REFORMING UNIT: [facility] 04/15/201541 RPT#: [id number] DC DATE:04/15/20 STATUS: DIS IN [facility] [address] [place] [address] END OF REPORT
== END 2020-04-15 15:39 | disposition home or self-care (01) | DRG 247 ==
LOC: D.ER 17:10 → D.M2 18:30
PROVIDERS: Family Medicine; Internal Medicine Cardiovascular Disease; Internal Medicine Interventional Cardiology; ADMIT Family Medicine; ATTEND Family Medicine
PROC: B2111ZZ Fluoroscopy of Multiple Coronary Arteries using Low Osmolar Contrast (ICD-10-PCS; 2020-04-14)
PROC: B2151ZZ Fluoroscopy of Left Heart using Low Osmolar Contrast (ICD-10-PCS; 2020-04-14)
PROC: 027034Z Dilation of Coronary Artery, One Artery with Drug-eluting Intraluminal Device, Percutaneous Approach (ICD-10-PCS; principal; 2020-04-14 10:00)
PROC: 4A023N7 Measurement of Cardiac Sampling and Pressure, Left Heart, Percutaneous Approach (ICD-10-PCS; 2020-04-14 10:00)
DX: I31.3 Pericardial effusion (noninflammatory) (principal); K21.9 Gastro-esophageal reflux disease without esophagitis; J44.9 Chronic obstructive pulmonary disease, unspecified; M19.90 Unspecified osteoarthritis, unspecified site; M54.30 Sciatica, unspecified side; I25.10 Atherosclerotic heart disease of native coronary artery without angina pectoris; F41.8 Other specified anxiety disorders; M54.16 Radiculopathy, lumbar region; I11.0 Hypertensive heart disease with heart failure; I50.9 Heart failure, unspecified